=== PATIENT | male | born 1930 | race Caucasian/White ===

== ENCOUNTER 2016-06-10 09:34 | Inpatient (IN) | payer MEDICARE, BC ==
[2016-06-10] MEDS ORDERED: diphenhydrAMINE 50 MG/ML 1 ML VIAL IVP STA (10:51)
[2016-06-10] MEDS ORDERED: methylPREDNISolone SOD SUCCI 125 MG/2 ML VIAL IV STA (10:51)
[2016-06-10] MEDS ORDERED: FAMOTIDINE 20 MG/2 ML VIAL IV STA (10:51)
--- NOTE | 2016-06-10 11:20 | ED ---
General Adult HPI - General Source: patient, RN notes reviewed Mode of arrival: ambulatory Limitations: no limitations <Oc Galindo - Last Filed: 06/10/16 12:51> <Abdiel Glass - Last Filed: 06/10/16 12:56> - General Chief complaint: Skin/Abscess/Foreign Body Stated complaint: rash on head Time Seen by Provider: 06/10/16 10:10 - History of Present Illness Initial comments: Patient 85-year-old male who presents emergency room today with a chief complaint of a rash to his face 3 days. He does admit that it started 3 days on the right side. He states it is somewhat tender locally. States feels swollen to him. States rash has increased and is now going across to the other side over the last day. States that he did take any medication of Welchol that he began approximately 5 days ago. States unsure if it's related to this. Also admits to eating out 2 days ago having a salad. Patient states never had any food ALLERGIES in the past. Denies ever having reaction similar to this in the past. Denies any difficulty breathing or swallowing. States he has not taken any medications specifically for this. Patient denies any recent fever, chills, shortness of breath, chest pain, back pain, abdominal pain, nausea or vomiting, numbness or tingling, dysuria or hematuria, constipation or diarrhea, headaches or visual changes, or any other complaints. (Oc Galindo) - Related Data Home Medications Medication Instructions Recorded Confirmed Allopurinol [Zyloprim] 100 mg PO HS 09/21/14 06/10/16 Aspirin 81 mg PO HS 09/21/14 06/10/16 Atorvastatin Calcium [Lipitor] 10 mg PO HS 09/21/14 06/10/16 Levothyroxine Sodium [Synthroid] 175 mcg PO DAILY 09/21/14 06/10/16 Sodium Polystyrene Sulfon/Sorb 15 gm PO BID 09/21/14 06/10/16 [Kionex] Sotalol [Betapace] 80 mg PO BID 09/21/14 06/10/16 Valsartan [Diovan] 160 mg PO DAILY 09/21/14 06/10/16 Warfarin [Coumadin] 5 mg PO SUMOWEFR 06/10/16 06/10/16 Warfarin [Coumadin] 5 mg PO TUTHSA 06/10/16 06/10/16 Allergies Allergy/AdvReac Type Severity Reaction Status Date / Time adhesive Allergy Unknown Verified 06/10/16 10:16 amoxicillin trihydrate Allergy Unknown Verified 06/10/16 10:16 [From Augmentin] chlorpromazine HCl Allergy Unknown Verified 06/10/16 10:16 [From Thorazine] nitroglycerin Allergy Unknown Verified 06/10/16 10:16 potassium clavulanate Allergy Unknown Verified 06/10/16 10:16 [From Augmentin] Review of Systems ROS Other: All systems not noted in ROS Statement are negative. <Oc Galindo - Last Filed: 06/10/16 12:51> ROS Other: All systems not noted in ROS Statement are negative. <Abdiel Glass - Last Filed: 06/10/16 12:56> ROS Statement: Those systems with pertinent positive or pertinent negative responses have been documented in the HPI. Past Medical History Past Medical History: Atrial Fibrillation, Coronary Artery Disease (CAD), Hyperlipidemia, Hypertension, Myocardial Infarction ([place]), Osteoarthritis (OA), Renal Disease, Thyroid Disorder History of Any Multi-Drug Resistant Organisms: None Reported Past Surgical History: Coronary Bypass/CABG, Joint Replacement, Orthopedic Surgery, Pacemaker Past Psychological History: No Psychological Hx Reported Smoking Status: Former smoker Past Alcohol Use History: None Reported Past Drug Use History: None Reported <Oc Galindo - Last Filed: 06/10/16 12:51> General Exam Limitations: no limitations <Oc Galindo - Last Filed: 06/10/16 12:51> <Abdiel Glass - Last Filed: 06/10/16 12:56> - General Exam Comments Initial Comments: General: The patient is awake and alert, in no distress, and does not appear acutely ill. Eye: Pupils are equal, round and reactive to light, extra-ocular movements are intact. No nystagmus. There is normal conjunctiva bilaterally. No signs of icterus. Ears, nose, mouth and throat: There are moist mucous membranes and no oral lesions. Neck: The neck is supple, there is no tenderness or JVD. Cardiovascular: There is a regular rate and rhythm. No murmur, rub or gallop is appreciated. Respiratory: Lungs are clear to auscultation, respirations are non-labored, breath sounds are equal. No wheezes, stridor, rales, or rhonchi. Musculoskeletal: Normal ROM, no tenderness. Strength 5/5. Sensation intact. Pulses equal bilaterally 2+. Neurological: A&O x 3. CN II-XII intact, There are no obvious motor or sensory deficits. Coordination appears grossly intact. Speech is normal. Skin: She does have a red erythematous rash across both right and left sides of face. Swelling underneath the both right and left eye. Worsen the right than the left. Does have swelling to the right earlobe. No tenderness specifically on exam. Does have scaly type lesions seen to the right forehead and right cheek area. Rash does conor. Psychiatric: Cooperative, appropriate mood & affect, normal judgment. (Oc Galindo) Medical Decision Making - Lab Data Result diagrams: 06/10/16 11:20 06/10/16 11:20 <Oc Galindo - Last Filed: 06/10/16 12:51> - Lab Data Result diagrams: 06/10/16 11:20 06/10/16 11:20 <Abdiel Glass - Last Filed: 06/10/16 12:56> - Medical Decision Making Patient's labs been reviewed. Does show mild elevation of BUN/creatinine which are similar to previous findings. Patient resting comfortably in the stretcher. Patient has no improvement after site Medrol, Benadryl, Pepcid. Case discussed and seen by attending physician Dr. Glass who did discuss the case with admitting physician Dr. Sloan will admit the patient. Patient will be started on clindamycin cover for cellulitis along with valacyclovir to cover for possible herpes zoster. Patient aware the plan states understanding and is in agreement. (Oc Galindo) I saw this patient in conjunction with the physician fast food sales assistant. I performed independent history and physical exam. Agree with case management. (Abdiel Glass) - Lab Data Lab Results 06/10/16 06/10/16 06/10/16 Range/Units 11:20 11:20 11:20 WBC 7.5 (3.8-10.6) k/uL RBC 3.46 L (4.30-5.90) m/uL Hgb 10.9 L (13.0-17.5) gm/dL Hct 34.3 L (39.0-53.0) % MCV 99.0 (80.0-100.0) fL MCH 31.6 (25.0-35.0) pg MCHC 31.9 (31.0-37.0) g/dL RDW 15.4 (11.5-15.5) % Plt Count 133 L (150-450) k/uL Neutrophils % 84 % Lymphocytes % 8 % Monocytes % 5 % Eosinophils % 1 % Basophils % 0 % Neutrophils # 6.3 (1.3-7.7) k/uL Lymphocytes # 0.6 L (1.0-4.8) k/uL Monocytes # 0.4 (0-1.0) k/uL Eosinophils # 0.1 (0-0.7) k/uL Basophils # 0.0 (0-0.2) k/uL Macrocytosis Slight ESR 70 H (0-15) mm/hr PT (9.0-12.0) sec INR (<1.1) Sodium 144 (137-145) mmol/L Potassium 5.1 (3.5-5.1) mmol/L Chloride 105 (98-107) mmol/L Carbon Dioxide 27 (22-30) mmol/L Anion Gap 12 mmol/L BUN 42 H (9-20) mg/dL Creatinine 1.66 H (0.66-1.25) mg/dL Est GFR (MDRD) Af Amer 48 (>60 ml/min/1.73 sqM) Est GFR (MDRD) Non-Af 40 (>60 ml/min/1.73 sqM) Glucose 100 H (74-99) mg/dL Calcium 8.9 (8.4-10.2) mg/dL Total Bilirubin 0.9 (0.2-1.3) mg/dL AST 21 (17-59) U/L ALT 31 (21-72) U/L Alkaline Phosphatase 97 (38-126) U/L Total Protein 6.4 (6.3-8.2) g/dL Albumin 3.7 (3.5-5.0) g/dL 06/10/16 Range/Units 11:20 WBC (3.8-10.6) k/uL RBC (4.30-5.90) m/uL Hgb (13.0-17.5) gm/dL Hct (39.0-53.0) % MCV (80.0-100.0) fL MCH (25.0-35.0) pg MCHC (31.0-37.0) g/dL RDW (11.5-15.5) % Plt Count (150-450) k/uL Neutrophils % % Lymphocytes % % Monocytes % % Eosinophils % % Basophils % % Neutrophils # (1.3-7.7) k/uL Lymphocytes # (1.0-4.8) k/uL Monocytes # (0-1.0) k/uL Eosinophils # (0-0.7) k/uL Basophils # (0-0.2) k/uL Macrocytosis ESR (0-15) mm/hr PT 13.8 H (9.0-12.0) sec INR 1.4 (<1.1) Sodium (137-145) mmol/L Potassium (3.5-5.1) mmol/L Chloride (98-107) mmol/L Carbon Dioxide (22-30) mmol/L Anion Gap mmol/L BUN (9-20) mg/dL Creatinine (0.66-1.25) mg/dL Est GFR (MDRD) Af Amer (>60 ml/min/1.73 sqM) Est GFR (MDRD) Non-Af (>60 ml/min/1.73 sqM) Glucose (74-99) mg/dL Calcium (8.4-10.2) mg/dL Total Bilirubin (0.2-1.3) mg/dL AST (17-59) U/L ALT (21-72) U/L Alkaline Phosphatase (38-126) U/L Total Protein (6.3-8.2) g/dL Albumin (3.5-5.0) g/dL Disposition Time of Disposition: 12:52 <Oc Galindo - Last Filed: 06/10/16 12:51> <Abdiel Glass - Last Filed: 06/10/16 12:56> Clinical Impression: Herpes zoster Disposition: ADMITTED IP TO THIS HOSP Condition: Stable Referrals: Hayder Alfonso DO [Primary Care Provider] - 1-2 days
[2016-06-10 11:33] LABS: Basophils % (A) 0 %; CHCM 32.5; Eosinophils # (A) 0.1 k/uL (0-0.7); Eosinophils % (A) 1 %; HCT 34.3 % (39.0-53.0); HDW 2.62; HGB 10.9 gm/dL (13.0-17.5); Luc % (Auto) 1; Lymphocytes # (A) 0.6 k/uL (1.0-4.8); Lymphocytes % (A) 8 %; MCH 31.6 pg (25.0-35.0); MCHC 31.9 g/dL (31.0-37.0); Macrocytosis Slight; Mean Platelet Volume 8.3; Monocytes # (A) 0.4 k/uL (0-1.0); Monocytes % (A) 5 %; Neutrophils # (A) 6.3 k/uL (1.3-7.7); Neutrophils % (A) 84 %; RBC 3.46 m/uL (4.30-5.90); RDW 15.4 % (11.5-15.5); WBC 7.5 k/uL (3.8-10.6); WBC (Perox) 7.67
[2016-06-10 11:43] LABS: INR 1.4 (<1.1); Prothrombin Time 13.8 sec (9.0-12.0)
[2016-06-10 11:48] LABS: Calcium 8.9 mg/dL (8.4-10.2); Potassium 5.1 mmol/L (3.5-5.1); Total Bilirubin 0.9 mg/dL (0.2-1.3); Total Protein 6.4 g/dL (6.3-8.2)
[2016-06-10] MEDS ORDERED: SODIUM CHLORIDE 0.9% 1,000 ML IV ONE (12:53)
[2016-06-10] MEDS ORDERED: LORazepam 2 MG/ML SYRINGE IV PRN (12:53)
[2016-06-10] MEDS ORDERED: ONDANSETRON 4 MG/2 ML VIAL IVP PRN (12:53)
[2016-06-10] MEDS ORDERED: ACETAMINOPHEN TAB 325 MG TAB PO PRN (12:53)
[2016-06-10] MEDS ORDERED: HYDROcodone/APAP 5-325MG 1 EACH TAB PO PRN (12:53)
[2016-06-10] MEDS ORDERED: NALOXONE 0.4 MG/ML 1 ML VIAL IV PRN (12:53)
[2016-06-10] MEDS ORDERED: CLINDAMYCIN 300 MG in DEXTROSE 5% IN WATER 50 ML IVPB STA ×2 (12:55)
--- NOTE | 2016-06-10 15:16 | P.HPIM ---
History of Present Illness H&P Date: 06/10/16 Chief Complaint: Acute zoster of the right facial area, cellulitis of the face, Russ Pelaez 85-year-old male one of Dr. bay Jimenez patient with the medical problem known to have history of CAD, CK D, A. fib, hypertension, hyperlipidemia and hypothyroidism who is known to have gout and diabetes who apparently was [place] the country with his few days ago coming back he stayed in a hotel had lunch or dinner developed to have mild facial irritation and discomfort with low-grade temperature at the time. By the time he made it home he become with severe chills and worsening symptom with high fever his face developed to have significant swelling and later on developed to have more blister on it with severe pain and discomfort over the auricle in the ear area. Today symptom or much worse ended up coming to the emergency department at [facility] where was seen and evaluated. His white blood cell and platelet are slightly bit low with patient clinical presentation and palpitation over the auricle and ear canal area patient was diagnosed with Russ qureshi looks like had zoster and cellulitis of the facial area. Was started on Valtrex and antibiotics IV will be admitted to the hospital above problem. Review of Systems Constitutional: Reports chronic headaches, Reports chronic pain, Reports fatigue , Reports fever, Reports lethargy, Reports malaise, Reports weakness, Reports weight gain, Denies as per HPI, Denies anorexia, Denies chills, Denies daytime sleepiness, Denies night sweats, Denies poor appetite, Denies sweats, Denies weight loss Eyes: bilateral as per HPI, bilateral blurred vision Ears: right: ear discharge, earache, tinnitus Ears, nose, mouth and throat: Reports ant. neck pain, Reports headache, Reports nasal congestion, Reports odynophagia, Reports sinus pressure, Reports swelling in mouth, Reports swelling in throat, Reports sore throat, Denies as per HPI, Denies bleeding gums, Denies dental pain, Denies dysphagia, Denies epistaxis, Denies hoarseness, Denies mouth pain, Denies nasal discharge, Denies neck fullness/pressure, Denies neck lump, Denies nose pain, Denies post-nasal drip, Denies sinus pain, Denies vertigo, Denies voice changes Cardiovascular: Reports chest pain, Reports dyspnea on exertion, Reports edema, Reports high blood pressure, Reports orthopnea, Reports rapid heart beat, Reports shortness of breath, Denies as per HPI, Denies claudication, Denies decreased exercise tolerance, Denies irregular heart beat, Denies leg edema, Denies lightheadedness, Denies palpitations, Denies paroxysmal nocturnal dyspnea , Denies phlebitis, Denies syncope Respiratory: Reports congestion, Reports cough, Reports dyspnea, Reports pain on inspiration, Reports snoring, Denies as per HPI, Denies cough with sputum, Denies excessive sputum, Denies hemoptysis, Denies home oxygen, Denies pain, Denies pleurisy, Denies respiratory infections, Denies sleep apnea, Denies wheezing Gastrointestinal: Reports belching, Reports bloating, Reports change in bowel habits, Reports dyspepsia, Reports early satiety, Reports indigestion, Reports loss of appetite, Reports nausea, Denies as per HPI, Denies abdominal pain, Denies BRBPR, Denies coffee ground emesis, Denies constipation, Denies diarrhea , Denies excessive gas, Denies heartburn, Denies hematemesis, Denies hematochezia, Denies jaundice, Denies lactose intolerance, Denies melena, Denies vomiting Genitourinary: Reports nocturia, Reports polyuria, Denies as per HPI, Denies decreased libido, Denies difficulties fathering child, Denies discharge, Denies dysuria, Denies erectile dysfunction, Denies flank pain, Denies genital pain, Denies genital sores, Denies hematuria, Denies impotence, Denies incontinence, Denies kidney stones, Denies testicular lump, Denies testicular pain, Denies urinary frequency, Denies urinary hesitancy, Denies urinary retention Musculoskeletal: Reports gait dysfunction, Reports low back pain, Reports myalgias, Reports neck pain, Reports neck stiffness, Denies as per HPI, Denies arm numbness/tingling, Denies atrophy, Denies fractures, Denies frequent falls, Denies hot joints, Denies leg numbness/tingling, Denies limitation of motion, Denies loss of height, Denies morning stiffness, Denies muscle cramps, Denies muscle weakness, Denies prior amputations, Denies redness of joints, Denies shooting arm pain, Denies shooting leg pain Integumentary: Reports pruritus, Reports rash, Reports sores, Denies as per HPI , Denies acne, Denies boils, Denies brittle nails, Denies change in hair/nails, Denies color changes, Denies darkening of skin, Denies depigmentation, Denies dryness, Denies foot/leg ulcers, Denies growths, Denies hirsutism, Denies lesions, Denies onychomycosis, Denies striae, Denies unusual bruising, Denies wounds Neurological: Reports ataxia, Reports convulsions, Reports lack of coordination , Reports paresthesias, Reports weakness, Denies as per HPI, Denies aphasia, Denies balance difficulties, Denies burning pain, Denies change in mentation, Denies change in smell/taste, Denies change in speech, Denies confusion, Denies double vision, Denies gait dysfunction, Denies head injury, Denies headaches, Denies hearing difficulties, Denies loss of vision, Denies memory loss, Denies migraines, Denies motor disturbance, Denies numbness, Denies paralysis, Denies seizures, Denies sensory deficit, Denies spasticity, Denies syncope, Denies tic , Denies tingling, Denies transient paralysis, Denies tremors, Denies vertigo, Denies visual changes Psychiatric: Reports anhedonia, Reports depression, Reports sadness/tearfulness , Denies as per HPI, Denies anxiety, Denies anxiety attacks, Denies change in appetite, Denies change in libido, Denies change in sleep habits, Denies confusion, Denies difficulty concentrating, Denies disorientation, Denies hallucinations, Denies hopelessness, Denies hypersomnia, Denies insomnia, Denies irritability, Denies memory loss, Denies mood swings, Denies paranoia, Denies sleep disturbances, Denies suicidal ideation Endocrine: Reports cold intolerance, Reports excessive thirst, Reports fatigue, Denies as per HPI, Denies deepening of the voice, Denies excessive sweating, Denies flushing, Denies heat intolerance, Denies high blood sugars, Denies increase in ring/shoe/hat size, Denies low blood sugars, Denies nocturia, Denies palpitations, Denies polydipsia, Denies polyphagia, Denies polyuria, Denies proptosis, Denies recent glucocorticoid use, Denies thyroid mass, Denies weight change Hematologic/Lymphatic: Reports easy bruising, Denies as per HPI, Denies easy bleeding, Denies lymphadenopathy, Denies lymphedema, Denies thrombophilia Allergic/Immunologic: Denies as per HPI, Denies allergic rhinitis, Denies anaphylaxis, Denies angioedema, Denies gluten intolerance, Denies persistent infections, Denies seasonal allergies, Denies urticaria, Denies wheezing Past Medical History Past Medical History: Atrial Fibrillation, Coronary Artery Disease (CAD), Cancer , Deep Vein Thrombosis (DVT), Hyperlipidemia, Hypertension, Myocardial Infarction ([place]), Osteoarthritis (OA), Pulmonary Embolus (PE), Renal Disease, Sleep Apnea/CPAP/BIPAP, Thyroid Disorder Additional Past Medical History / Comment(s): Recent L foot toes injured/bruised , DVT R arm with pulmonary embolism, poor circulation, LEONCIO does not always use CPAP, skin cancer with removal and pt thinks R arm was melanoma, hypothyroid, [place] in 1996. Last Myocardial Infarction Date:: 1996 History of Any Multi-Drug Resistant Organisms: None Reported Past Surgical History: Coronary Bypass/CABG, Heart Catheterization, Hernia Repair, Joint Replacement, Orthopedic Surgery, Pacemaker Additional Past Surgical History / Comment(s): 1996 CABG-5 vessel, L/R total hip arthroplasties, R knee total arthroplasty with revision, skin cancer removals, colonoscopy, pacemaker 2012 while in [place], bilateral cataract removals, R writst with plates and screws, umbilical hernia repair. Past Anesthesia/Blood Transfusion Reactions: No Reported Reaction Type of Cardiac Device: Permanent Pacemaker Device Placement Date:: 2012 Past Psychological History: No Psychological Hx Reported Additional Psychological History / Comment(s): Pt resides with his spouse. He uses a cane or walker to ambulate. He drives. Smoking Status: Former smoker Past Alcohol Use History: Rare Additional Past Alcohol Use History / Comment(s): Pt started smoking as a teen and quit in 1967. Past Drug Use History: None Reported - Past Family History Father Family Medical History: Cancer Additional Family Medical History / Comment(s): Father of colon cancer. Mother Family Medical History: No Reported History Additional Family Medical History / Comment(s): Mother lived to be 76yrs old. Medications and Allergies Home Medications Medication Instructions Recorded Confirmed Type Allopurinol [Zyloprim] 100 mg PO HS 09/21/14 06/10/16 History Aspirin 81 mg PO HS 09/21/14 06/10/16 History Atorvastatin Calcium [Lipitor] 10 mg PO HS 09/21/14 06/10/16 History Levothyroxine Sodium [Synthroid] 175 mcg PO DAILY 09/21/14 06/10/16 History Sodium Polystyrene Sulfon/Sorb 15 gm PO BID 09/21/14 06/10/16 History [Kionex] Sotalol [Betapace] 80 mg PO BID 09/21/14 06/10/16 History Valsartan [Diovan] 160 mg PO DAILY 09/21/14 06/10/16 History Warfarin [Coumadin] 5 mg PO SUMOWEFR 06/10/16 06/10/16 History Warfarin [Coumadin] 5 mg PO TUTHSA 06/10/16 06/10/16 History Allergies Allergy/AdvReac Type Severity Reaction Status Date / Time adhesive Allergy Unknown Verified 06/10/16 10:16 amoxicillin trihydrate Allergy Unknown Verified 06/10/16 10:16 [From Augmentin] chlorpromazine HCl Allergy Unknown Verified 06/10/16 10:16 [From Thorazine] nitroglycerin Allergy Unknown Verified 06/10/16 10:16 potassium clavulanate Allergy Unknown Verified 06/10/16 10:16 [From Augmentin] Physical Exam Vitals: Vital Signs Temp Pulse Resp BP Pulse Ox 06/10/16 13:26 97.4 F L 120 H 20 148/75 95 Intake and Output 06/10/16 06/10/16 06/10/16 06:59 14:59 22:59 Intake Total 10 Balance 10 Intake: Amount of Fluid Infused ( 10 ml) - Constitutional General appearance: no average body habitus, cooperative, no disheveled, no mild distress, no morbidly obese, no acute distress, obese, no severe distress, no thin - EENT Significant blister spreading from the back of his head all the way to the upper part of his right eyelid involving the auricle in the ear canal as well with swelling and redness around the blister side with background of psoriasis as well on the hairline area. Looks like shingle with cellulitis in the background of psoriasis. Eyes: no abnormal pupil, anicteric sclerae, no disc margins sharp, no edentulous , no EOMI, no PERRLA, no fundus normal, no photophobia, no dentition normal, no poor dentition, no ptosis, scleral icterus, no normal appearance ENT: hard of hearing, no hearing grossly normal, no NA/AT, no normal oropharynx , no other, pharyngeal erythema, no thrush, no tonsillar exudates, tonsillar swelling Ears: bilateral: normal - Neck Neck: no lymphadenopathy, normal ROM, no other, no rigidity, no stridor, no thyromegaly Carotids: bilateral: upstroke normal Thyroid: bilateral: normal size - Respiratory Respiratory: bilateral: CTA, diminished, dullness - Cardiovascular Rhythm: irregularly irregular Heart sounds: normal: S1, S2 Abnormal Heart Sounds: systolic murmur, S3 Gallop - Gastrointestinal General gastrointestinal: no absent bowel sounds, no decreased bowel sounds, distended, no hepatomegaly, no hyperactive bowel sounds, normal bowel sounds, organomegaly, no rigid, no scaphoid, soft, no splenomegaly, no tenderness, no umbilical hernia, no ventral hernia - Integumentary Integumentary: no calor, no cellulitis, no cyanotic, no decreased turgor, no flushed, no jaundiced, normal, no normal turgor, pale, rash, no ulcer - Neurologic Neurologic: CNII-XII intact - Musculoskeletal Musculoskeletal: gait normal, generalized weakness, strength equal bilaterally, no right sided weakness, no left sided weakness - Psychiatric Psychiatric: A&O x's 3, appropriate affect Results CBC & Chem 7: 06/10/16 11:20 06/10/16 11:20 Thrombosis Risk Factor Assmnt - DVT/VTE Prophylaxis DVT/VTE Prophylaxis: Pharmacologic Prophylaxis ordered, Mechanical Prophylaxis ordered - Choose All That Apply Any of the Below Risk Factors Present?: Yes Each Factor Represents 1 point: Obesity (BMI >25) Other Risk Factors: Yes Each Risk Factor Represents 3 Points: Age 75 years or older, History of DVT/PE Other congenital or acquired thrombophilia - If yes, enter type in comment: No Thrombosis Risk Factor Assessment Total Risk Factor Score: 7 Thrombosis Risk Factor Assessment Level: High Risk Assessment and Plan Plan: 1 acute Russ Pelaez syndrome: Patient had shingle in the right facial area involving the auricle the ear canal as well and slightly but worsening last 24 hours will be admitted to the hospital will be treated with Valcyclovir and pain management. 2 acute facial cellulitis: With his current ALLERGY patient was started on clindamycin initially can be switched to doxycycline her ROM second or third day and prepare for home on doxycycline for total of 2 weeks. 3 zoster involving the upper branch and part of the middle of the trigeminal nerve on the right side will be on antiviral medication for the next 7 days might use small dose of steroid as well and possibly gabapentin. 4 Chronic kidney disease: With stage III CK-MB has been seen nephrology regular basis continue to watch his BUN/creatinine daily. 5 A. fib with pulse rates under control patient is on Betapace along with warfarin PT/INR be done daily. 6 hypothyroidism: Has been on levothyroxine 125 g daily continue medication. 7 hyperlipidemia: On Lipitor 10 mg daily. 8 hypertension: Well controlled on Diovan 160 mg a day. 9 gout with no flareup or recurrent symptoms patient has been on Zyloprim 100 mg daily. 10 Anticoagulation: Patient is on warfarin PT/INR be done daily. 11 GI prophylaxis: Patient will be on Pepcid 20 mg daily. CODE STATUS: Full code. Expectation from this admission: Patient be in the hospital for more than 2 nights.
[2016-06-10] MEDS ORDERED: valACYclovir 500 MG TAB PO SCH (16:00)
[2016-06-10] MEDS: valACYclovir HCL 1,000 MG TABLET PO SCH ×2 (16:04→21:03)
[2016-06-10] MEDS: HEPARIN SODIUM,PORCINE 5,000 UNIT/ML 1 ML VIAL SQ SCH (20:02)
[2016-06-10] MEDS: CLINDAMYCIN 300 MG in DEXTROSE 5% IN WATER 50 ML IVPB SCH ×2 (20:25)
[2016-06-11] MEDS: CLINDAMYCIN 300 MG in DEXTROSE 5% IN WATER 50 ML IVPB SCH ×6 (04:53→20:07)
[2016-06-11] MEDS: valACYclovir HCL 1,000 MG TABLET PO SCH ×3 (08:03→21:22)
[2016-06-11] MEDS: HEPARIN SODIUM,PORCINE 5,000 UNIT/ML 1 ML VIAL SQ SCH ×2 (08:03→20:07)
[2016-06-11 08:54] LABS: Basophils % (A) 0 %; CH 32.1; CHCM 31.6; Eosinophils % (A) 0 %; HCT 32.6 % (39.0-53.0); HDW 2.58; HGB 9.9 gm/dL (13.0-17.5); Hypochromasia Slight; Luc # (Auto) 0.08; Luc % (Auto) 1; Lymphocytes # (A) 0.7 k/uL (1.0-4.8); Lymphocytes % (A) 11 %; MCH 31.1 pg (25.0-35.0); MCHC 30.5 g/dL (31.0-37.0); MCV 102.1 fL (80.0-100.0); Macrocytosis Slight; Mean Platelet Volume 8.6; Monocytes # (A) 0.4 k/uL (0-1.0); Monocytes % (A) 6 %; Neutrophils % (A) 81 %; RDW 15.2 % (11.5-15.5); WBC 6.2 k/uL (3.8-10.6); WBC (Perox) 6.34
[2016-06-11 09:02] LABS: Calcium 8.7 mg/dL (8.4-10.2); Potassium 4.4 mmol/L (3.5-5.1); Total Bilirubin 0.3 mg/dL (0.2-1.3); Total Protein 6.2 g/dL (6.3-8.2)
[2016-06-11] MEDS ORDERED: WARFARIN 5 MG TAB PO SCH ×2 (11:15→18:00)
[2016-06-11] MEDS: MAGNESIUM HYDROXIDE 2,400 MG/10 ML CUP PO PRN ×2 (15:32→20:21)
[2016-06-11] MEDS: SOTALOL 80 MG TAB PO SCH (20:06)
--- NOTE | 2016-06-11 20:30 | PN ---
DATE OF SERVICE: 06/11/2016 The patient is at the bedside comfortable, with at the chair next to him saying that he has improved significantly since yesterday. The patient experienced some blurry vision in the morning but resolved and he is back to normal vision condition. The patient denies any chest pain, shortness of breath, nausea, vomiting, abdominal pain, dizziness. No ( ) or blurry vision. On physical examination: VITAL SIGNS: Reviewed and stable. LUNGS: Clear to auscultation bilaterally. HEART: S1 and S2. SKIN: Facial skin ( ), generalized erythema. No open blisters noted. 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 ABDOMEN: Soft, no tenderness. Positive bowel sounds in all four quadrants. PSYCH: Alert, oriented x3. Intact mood and affect. Imaging and labs reviewed this morning and stable. ASSESSMENT AND PLAN: 1. Facial cellulitis, seems to be improving. Continue with IV doxycycline. Discussed with Dr. Sr, the management today, he will be in later to reevaluate the patient. 2. Questionable zoster on the face. Continue Valtrex at this point and follow up with Dr. Sr recommendations and ( ) and consider consultation based on his evaluation. 3. Transient blurry vision, patient states that once he puts his glasses on he was able to see normal. Not sure about severity of transient blurry vision. Continue monitoring closely. Further workup if patient experiences worsening in vision. 4. Hypertension, better controlled. 5. Anemia, stable. 6. Chronic kidney disease, rule out ( ) and checking kidney function on a daily basis while in the hospital. 7. Discharge planning based on clinical progress. Plan discussed with the patient and his who both agree to the above.
[2016-06-11] MEDS ORDERED: ALLOPURINOL 100 MG TAB PO SCH (21:00)
[2016-06-11] MEDS ORDERED: ASPIRIN 81 MG CHEW PO SCH (21:00)
[2016-06-11] MEDS ORDERED: ATORVASTATIN 10 MG TAB PO SCH (21:00)
--- NOTE | 2016-06-11 22:11 | P.CONS ---
History of Present Illness - Reason for Consult Consult date: 06/11/16 - Chief Complaint pain swellingof face - History of Present Illness Very pleasant 85-year-old male presents to hospital with relatively sudden onset of significant pain and swelling to his face. The patient relates he and the went to the [facility] where they did some shopping. This was not unusual for them. Only thing new that he can recall is he's been moving some logs for the log pile into the house, and they are quite old. He distantly denies any pulmonary symptoms. He over does complain of chronic sinus drainage. He often has a bit of a runny nose and often sneezes 7 times in a row. This is without significant change as of now. He does continue to have some drainage. He relates before admission history to feel poorly. He had a sudden onset of the fever and chill likely even had a rigor. He then settled down a bit and went to sleep. The following day he again felt poorly and noticed increasing swelling to the right side of his face above his eye that then tracked above the left eye. He notices his glasses were becoming tight because his face with swelling. As he continued to have fever and felt poorly and became weak he was brought to Hospital for further intervention. With evidence of sepsis the infectious diseases consultation was requested. Review of Systems as noted complains of fever with chill Experienced the onset of significant weakness generalized in nature HEENT:Denies headache or acute visual change. Denies sinus or mouth discomforts. Denies neck stiffness or pain. Denies significant oral cavity pain. Denies difficulty on swallowing. Lungs: Denies significant shortness of breath, cough, sputum production, or hemoptysis. Cardiovascular: Denies significant shortness of breath, chest pain, chest wall pain, orthopnea, dyspnea on exertion, syncope Gastrointestinal:Denies nausea, vomiting, diarrhea, constipation, hematemesis, melena, hematochezia. No no significant change of bowel habit noticed. Musculoskeletal: denies significant myalgias or arthralgias. No new joint swelling. Denies new back pain. Skin: as per the HPI Neuro: Denies headache or visual change. Denies any new onset weakness or difficulty with ambulation. Denies falls or seizures. Psychiatric:Denies anxiety or depression. Endocrine: Denies significant fatigue, denies significant weight loss or weight gain. Past Medical History Past Medical History: Atrial Fibrillation, Coronary Artery Disease (CAD), Cancer , Deep Vein Thrombosis (DVT), Hyperlipidemia, Hypertension, Myocardial Infarction ([place]), Osteoarthritis (OA), Pulmonary Embolus (PE), Renal Disease, Sleep Apnea/CPAP/BIPAP, Thyroid Disorder Additional Past Medical History / Comment(s): Recent L foot toes injured/bruised , DVT R arm with pulmonary embolism, poor circulation, LEONCIO does not always use CPAP, skin cancer with removal and pt thinks R arm was melanoma, hypothyroid, [place] in 1996. Last Myocardial Infarction Date:: 1996 History of Any Multi-Drug Resistant Organisms: None Reported Past Surgical History: Coronary Bypass/CABG, Heart Catheterization, Hernia Repair, Joint Replacement, Orthopedic Surgery, Pacemaker Additional Past Surgical History / Comment(s): 1996 CABG-5 vessel, L/R total hip arthroplasties, R knee total arthroplasty with revision, skin cancer removals, colonoscopy, pacemaker 2012 while in [place], bilateral cataract removals, R writst with plates and screws, umbilical hernia repair. Past Anesthesia/Blood Transfusion Reactions: No Reported Reaction Type of Cardiac Device: Permanent Pacemaker Device Placement Date:: 2012 Past Psychological History: No Psychological Hx Reported Additional Psychological History / Comment(s): Pt resides with his spouse. He uses a cane or walker to ambulate. 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 Has traveled internationally. Including [place], [place], the [place], [place]. Has not been to [place]. Has not been to [place]. Not a current smoker. No significant alcohol use or recreational drug use. No animals in the home at this time Smoking Status: Former smoker Past Alcohol Use History: Rare Additional Past Alcohol Use History / Comment(s): Pt started smoking as a teen and quit in 1967. Past Drug Use History: None Reported - Past Family History Father Family Medical History: Cancer Additional Family Medical History / Comment(s): Father of colon cancer. Mother Family Medical History: No Reported History Additional Family Medical History / Comment(s): Mother lived to be 76yrs old. Medications and Allergies Home Medications and Allergies Comment(s): Current Medications Acetaminophen (Tylenol Tab) 650 mg PO Q6HR PRN PRN Reason: Mild Pain or Fever > 100.5 Acetaminophen/Hydrocodone Bitart (Limon 5-325) 1 each PO Q4HR PRN PRN Reason: Moderate Pain Allopurinol (Zyloprim) 100 mg PO [facility] Last Admin: 06/11/16 20:06 Dose: 100 mg Aspirin (Aspirin) 81 mg PO [facility] Last Admin: 06/11/16 20:06 Dose: 81 mg Atorvastatin Calcium (Lipitor) 10 mg PO HS [facility] Last Admin: 06/11/16 20:06 Dose: 10 mg Heparin Sodium (Porcine) (Heparin) 5,000 unit SQ Q12HR [facility] Last Admin: 06/11/16 20:07 Dose: 5,000 unit Clindamycin Phosphate 300 mg/ (Dextrose/Water) 52 mls @ 100 mls/hr IVPB Q8H [facility] Last Admin: 06/11/16 20:07 Dose: 100 mls/hr Levothyroxine Sodium (Synthroid) 100 mcg PO 0630 [facility] Levothyroxine Sodium (Synthroid) 75 mcg PO DAILY@0630 [facility] Lorazepam (Ativan) 0.5 mg IV Q6HR PRN PRN Reason: Anxiety Magnesium Hydroxide (Milk Of Magnesia) 2,400 mg PO BID PRN PRN Reason: Constipation Last Admin: 06/11/16 20:21 Dose: 2,400 mg Naloxone HCl (Narcan) 0.2 mg IV Q2M PRN PRN Reason: Opioid Reversal Ondansetron HCl (Zofran) 4 mg IVP Q8HR PRN PRN Reason: Nausea And Vomiting Sotalol HCl (Betapace) 80 mg PO BID [facility] Last Admin: 06/11/16 20:06 Dose: 80 mg Valacyclovir HCl (Valtrex) 1,000 mg PO TID [facility] Last Admin: 06/11/16 21:22 Dose: 1,000 mg Valsartan (Diovan) 160 mg PO DAILY [facility] Warfarin Sodium (Coumadin) 7.5 mg PO SuMoWeFr [facility] Warfarin Sodium (Coumadin) 5 mg PO TUTHSA [facility] Last Admin: 06/11/16 18:03 Dose: 5 mg Home Medications Medication Instructions Recorded Confirmed Type Allopurinol [Zyloprim] 100 mg PO HS 09/21/14 06/10/16 History Aspirin 81 mg PO HS 09/21/14 06/10/16 History Atorvastatin Calcium [Lipitor] 10 mg PO HS 09/21/14 06/10/16 History Levothyroxine Sodium [Synthroid] 175 mcg PO DAILY 09/21/14 06/10/16 History Sodium Polystyrene Sulfon/Sorb 15 gm PO BID 09/21/14 06/10/16 History [Kionex] Sotalol [Betapace] 80 mg PO BID 09/21/14 06/10/16 History Valsartan [Diovan] 160 mg PO DAILY 09/21/14 06/10/16 History Warfarin [Coumadin] 5 mg PO TUTHSA 06/10/16 06/10/16 History Warfarin [Coumadin] 7.5 mg PO SUMOWEFR 06/10/16 06/11/16 History Allergies Allergy/AdvReac Type Severity Reaction Status Date / Time adhesive Allergy Unknown Verified 06/10/16 10:16 amoxicillin trihydrate Allergy Unknown Verified 06/10/16 10:16 [From Augmentin] chlorpromazine HCl Allergy Unknown Verified 06/10/16 10:16 [From Thorazine] nitroglycerin Allergy Unknown Verified 06/10/16 10:16 potassium clavulanate Allergy Unknown Verified 06/10/16 10:16 [From Augmentin] Physical Exam Vitals: Vital Signs Temp Pulse Resp BP Pulse Ox 06/11/16 19:47 97.6 F 83 136/75 06/11/16 15:00 97.0 F L 105 H 18 128/77 96 06/11/16 08:00 16 06/11/16 07:00 96.9 F L 108 H 16 138/86 92 L 06/10/16 23:00 98.7 F 97 16 130/67 97 Intake and Output 06/11/16 06/11/16 06/11/16 06:59 14:59 22:59 Intake Total 320 Balance 320 Intake: Intake, IV Titration 320 Amount Clindamycin 300 mg In 100 Dextrose 5% in Water 50 ml @ 100 mls/hr IVPB Q8H [facility] Rx#:[id number] Sodium Chloride 0.9% 1, 220 000 ml @ 20 mls/hr IV . Q24H [facility] Rx#:[id number] Other: Voiding Method Toilet Toilet # Voids 1 3 pleasant 85-year-old male who is not in any acute distrhis time. HEENT: Anicteric conjunctiva are pink and moist nasal mucosa grossly intact without significant lesions, there is no thrush. Neck: The neck is supple without significant lymphadenopathy or thyromegaly. Lungs: Good bilateral air entry without significant crackles or wheezing. There is no significant bronchial sounds. There is no egophony or dullness. Heart: irregular, audible S1-S2, no S3 no S4. There is no significant click or rub, PMI was nondisplaced.2/6 systolic murmur is noted without radiation. Abdomen: obese,Positive bowel sounds soft and nontender without palpable masses or organomegaly. There was no guarding or rebound. Extremities: The upper extremities have excellent pulses they are symmetric, no significant petechiae or telangiectasia. No splinter hemorrhages were noted. The lower extremities are free from significant edema. The peripheral pulses were 2+ and symmetric. Neuro: Awake alert oriented to person place and time. There are no acute new gross focal sensory motor deficits. skin:The patient's right periorbital area has evidence of patchy erythema that is slightly tender. There is definitely swelling in this region. It does track inferiorly near the ear. However no lesions within the ear or the external auditory canal. Of note his hearing is completely intact into the right ear. And upon head motion has no dizziness. The patient does have some mild swelling to the left periorbital area. He related that he may have had some lymphadenopathy that is not palpable at this point in time preauricular, posterior auricular or anterior cervical chain at this time. No other abnormal lymph nodes are noted. Results CBC & Chem 7: 06/11/16 07:51 06/11/16 07:51 Labs: Abnormal Lab Results - Last 24 Hours (Table) 06/11/16 06/11/16 Range/Units 07:51 07:51 RBC 3.20 L (4.30-5.90) m/uL Hgb 9.9 L (13.0-17.5) gm/dL Hct 32.6 L (39.0-53.0) % MCV 102.1 H (80.0-100.0) fL MCHC 30.5 L (31.0-37.0) g/dL Plt Count 125 L (150-450) k/uL Lymphocytes # 0.7 L (1.0-4.8) k/uL Chloride 109 H (98-107) mmol/L Carbon Dioxide 19 L (22-30) mmol/L BUN 45 H (9-20) mg/dL Creatinine 1.71 H (0.66-1.25) mg/dL Glucose 145 H (74-99) mg/dL Total Protein 6.2 L (6.3-8.2) g/dL Albumin 3.4 L (3.5-5.0) g/dL Laboratory Results WBC 6.2 k/uL (3.8-10.6) 06/11/16 07:51 RBC 3.20 m/uL (4.30-5.90) L 06/11/16 07:51 Hgb 9.9 gm/dL (13.0-17.5) L 06/11/16 07:51 Hct 32.6 % (39.0-53.0) L 06/11/16 07:51 MCV 102.1 fL (80.0-100.0) H 06/11/16 07:51 MCH 31.1 pg (25.0-35.0) 06/11/16 07:51 MCHC 30.5 g/dL (31.0-37.0) L 06/11/16 07:51 RDW 15.2 % (11.5-15.5) 06/11/16 07:51 Plt Count 125 k/uL (150-450) L 06/11/16 07:51 Neutrophils % 81 % 06/11/16 07:51 Lymphocytes % 11 % 06/11/16 07:51 Monocytes % 6 % 06/11/16 07:51 Eosinophils % 0 % 06/11/16 07:51 Basophils % 0 % 06/11/16 07:51 Neutrophils # 5.0 k/uL (1.3-7.7) 06/11/16 07:51 Lymphocytes # 0.7 k/uL (1.0-4.8) L 06/11/16 07:51 Monocytes # 0.4 k/uL (0-1.0) 06/11/16 07:51 Eosinophils # 0.0 k/uL (0-0.7) 06/11/16 07:51 Basophils # 0.0 k/uL (0-0.2) 06/11/16 07:51 Hypochromasia Slight 06/11/16 07:51 Macrocytosis Slight 06/11/16 07:51 ESR 70 mm/hr (0-15) H 06/10/16 11:20 PT 13.8 sec (9.0-12.0) H 06/10/16 11:20 INR 1.4 (<1.1) 06/10/16 11:20 Sodium 143 mmol/L (137-145) 06/11/16 07:51 Potassium 4.4 mmol/L (3.5-5.1) 06/11/16 07:51 Chloride 109 mmol/L (98-107) H 06/11/16 07:51 Carbon Dioxide 19 mmol/L (22-30) L 06/11/16 07:51 Anion Gap 15 mmol/L 06/11/16 07:51 BUN 45 mg/dL (9-20) H 06/11/16 07:51 Creatinine 1.71 mg/dL (0.66-1.25) H 06/11/16 07:51 Est GFR (MDRD) Af Amer 46 (>60 ml/min/1.73 sqM) 06/11/16 07:51 Est GFR (MDRD) Non-Af 38 (>60 ml/min/1.73 sqM) 06/11/16 07:51 Glucose 145 mg/dL (74-99) H 06/11/16 07:51 Calcium 8.7 mg/dL (8.4-10.2) 06/11/16 07:51 Total Bilirubin 0.3 mg/dL (0.2-1.3) 06/11/16 07:51 AST 20 U/L (17-59) 06/11/16 07:51 ALT 32 U/L (21-72) 06/11/16 07:51 Alkaline Phosphatase 84 U/L (38-126) 06/11/16 07:51 Total Protein 6.2 g/dL (6.3-8.2) L 06/11/16 07:51 Albumin 3.4 g/dL (3.5-5.0) L 06/11/16 07:51 Assessment and Plan (1) Preseptal cellulitis of right eye Narrative/Plan: 85-year-old male presents to the hospital with a somewhat sudden onset of fever chill and rigor. Associated with significant pain and swelling especially about his right eye. He's had no difficulty with any vesicles or blisters. The area is somewhat tender. He's noticed there is been more swelling in this region making his glasses tight when they're on his face. Since coming to Hospital his fever chill and rigor have resolved. He feels considerably better. Patient has had an adequate response to antibiotic therapy with clindamycin. He has a known ALLERGY to Augmentin which causes a significant skin eruption just a few years ago. At this time the patient has preseptal cellulitis and a computed tomography scan is requested given his history of some chronic sinus condition. If there is no significant abnormalities to his sinuses and a completion course of oral antibiotic therapy with clindamycin can be utilized with careful attention to any development of diarrhea. At this point in time it is not likely that this was varicella-zoster. Pain is considerably improved as is swelling. Fever chills and rigors have resolved. Status: Acute (2) Fever Status: Acute
[2016-06-12] MEDS: CLINDAMYCIN 300 MG in DEXTROSE 5% IN WATER 50 ML IVPB SCH ×2 (05:10)
[2016-06-12] MEDS ORDERED: LEVOTHYROXINE 75 MCG TAB PO SCH (06:30)
[2016-06-12] MEDS ORDERED: LEVOTHYROXINE 100 MCG TAB PO SCH (06:30)
[2016-06-12 08:00] VITALS: BP 121/67; PULSE 60; RESP 18; TEMP 96.6
[2016-06-12] MEDS: HEPARIN SODIUM,PORCINE 5,000 UNIT/ML 1 ML VIAL SQ SCH (08:01)
[2016-06-12] MEDS: SOTALOL 80 MG TAB PO SCH (08:02)
[2016-06-12] MEDS: valACYclovir HCL 1,000 MG TABLET PO SCH (08:02)
[2016-06-12 08:19] LABS: Basophils % (A) 0 %; CH 31.9; CHCM 31.3; Eosinophils # (A) 0.1 k/uL (0-0.7); Eosinophils % (A) 2 %; HCT 34.6 % (39.0-53.0); HDW 2.67; HGB 10.5 gm/dL (13.0-17.5); Hypochromasia Slight; Luc % (Auto) 2; Lymphocytes # (A) 1.1 k/uL (1.0-4.8); Lymphocytes % (A) 21 %; MCH 31.2 pg (25.0-35.0); MCHC 30.4 g/dL (31.0-37.0); MCV 102.6 fL (80.0-100.0); Macrocytosis Slight; Mean Platelet Volume 8.6; Monocytes # (A) 0.4 k/uL (0-1.0); Monocytes % (A) 7 %; Neutrophils # (A) 3.6 k/uL (1.3-7.7); Neutrophils % (A) 68 %; RBC 3.38 m/uL (4.30-5.90); RDW 15.4 % (11.5-15.5); WBC 5.3 k/uL (3.8-10.6); WBC (Perox) 5.76
[2016-06-12 08:23] LABS: INR 1.7 (<1.1)
[2016-06-12 08:32] LABS: Potassium 5.7 mmol/L (3.5-5.1); Total Bilirubin 0.3 mg/dL (0.2-1.3); Total Protein 6.2 g/dL (6.3-8.2)
[2016-06-12] MEDS ORDERED: SODIUM POLYSTYRENE SULFONATE 15 GM/60 ML BOTTLE PO STA (08:59)
[2016-06-12] MEDS ORDERED: VALSARTAN 160 MG TAB PO SCH (09:00)
[2016-06-12] MEDS ORDERED: WARFARIN 5 MG TAB PO SCH (11:01)
--- NOTE | 2016-06-12 11:19 | CT ---
EXAMINATION TYPE: CT sinus wo con DATE OF EXAM: 06/12/2016 10:11 AM COMPARISON: Prior exam August CT facial bones HISTORY: atypical zoster vs cellulitis CT DLP: 519.40 mGycm Automated exposure control for dose reduction was used. FINDINGS: Helical imaging through the paranasal sinuses and facial bones Large amount of inflammatory change present within the maxillary sinus on the left. Soft tissue obstr ucts the ostiomeatal unit on the left, right ostiomeatal unit is patent. No other significant interva l changes. Intraorbital contents are within normal limits. No intraorbital mass. Orbits are intact. IMPRESSION: LEFT MAXILLARY SINUS DISEASE.
[2016-06-12] MEDS ORDERED: WARFARIN 7.5 MG TAB PO SCH (18:00)
--- NOTE | 2016-06-13 13:02 | DS ---
DATE OF ADMISSION: 06/10/2016 DATE OF DISCHARGE: 06/12/2016 ADMITTING DIAGNOSES: 1. Cellulitis of the face. 2. Questionable ( ) of infection. 3. Hypertension. 4. Blurry vision. DISCHARGE DIAGNOSES: 1. Cellulitis of the face. 2. Sinusitis. 3. Dizziness, likely secondary to be above. PROCEDURES AND IMAGING: CT scan of the head, which revealed sinus infection. Normal otherwise CT of the brain. HOSPITAL COURSE: This is an 85-year-old male who presented to the hospital with facial redness. The patient was started on IV clindamycin, improved dramatically over the next 24 hours and was started also on acyclovir for treatment of possible zoster infection. Infectious disease was consulted. It was felt that the patient can be discharged on oral clindamycin for management of his facial cellulitis and for his sinus infection. The patient aware with the side effects of oral clindamycin and he agreed to follow up with his primary care physician between Monday and Monday, take Flonase twice daily, take Loratadine once daily and continue clindamycin for 7 more days for a total of 10 days of treatment. The patient understands that chronic sinusitis is another issue that he needs to follow up closely with his primary care physician in that regard and follow up with Dr. Sr from [place] for his recommendation. Patient and agreed to the current treatment plan and was discharged in stable condition.
== END 2016-06-12 13:55 | disposition home or self-care (01) | DRG 603 ==
LOC: EC 09:34 → 4MS4W 12:56
PROVIDERS: ADMIT Internal Medicine Geriatric Medicine; ATTEND Internal Medicine Geriatric Medicine
DX: L03.213 Periorbital cellulitis (principal); B02.21 Postherpetic geniculate ganglionitis; E11.22 Type 2 diabetes mellitus with diabetic chronic kidney disease; I48.91 Unspecified atrial fibrillation; N18.3 Chronic kidney disease, stage 3 (moderate); I12.9 Hypertensive chronic kidney disease with stage 1 through stage 4 chronic kidney disease, or unspecified chronic kidney disease; G47.33 Obstructive sleep apnea (adult) (pediatric); I25.10 Atherosclerotic heart disease of native coronary artery without angina pectoris; E78.5 Hyperlipidemia, unspecified; E03.9 Hypothyroidism, unspecified; M10.9 Gout, unspecified; I25.2 Old myocardial infarction; D64.9 Anemia, unspecified; J32.9 Chronic sinusitis, unspecified; Z88.0 Allergy status to penicillin; Z85.828 Personal history of other malignant neoplasm of skin; Z86.718 Personal history of other venous thrombosis and embolism; Z86.711 Personal history of pulmonary embolism; Z95.1 Presence of aortocoronary bypass graft; Z95.0 Presence of cardiac pacemaker; Z96.60 Presence of unspecified orthopedic joint implant; Z87.891 Personal history of nicotine dependence; Z98.42 Cataract extraction status, left eye; Z98.41 Cataract extraction status, right eye; Z79.01 Long term (current) use of anticoagulants; Z79.82 Long term (current) use of aspirin; Z79.899 Other long term (current) drug therapy
CPT/HCPCS: 36415; 70486; 80053; 85025; 85610; 85652; 96375; 99284

== ENCOUNTER → 2016-07-26 | Outpatient (CLI) | payer MEDICARE, BC ==
--- NOTE | 2016-07-27 07:20 | PN ---
This is a very pleasant, 85-year-old gentleman with a history of obstructive sleep apnea and follows with Dr. Vela in the sleep center. He has a baseline AHI of 49. He had been using CPAP, which was older generation REMstar with a pressure set at 9 cm of water. He had previously been using a comfort gel full face mask, but was having complaints of leaks. He was last seen in March 2016 and was provided with a new ComfortGel blue mask, which was a nose mask for him to use. He is seen today again in followup. He is doing fairly well. He has not been utilizing his CPAP machine as much as he should based on the poor performance of the old device as well. He was hoping to get a newer CPAP machine. This one is greater than 10 years old. There is no ability to make specific adjustments to make the patient more comfortable. On physical exam, vital signs reveal blood pressure 141/63, heart rate 62, respirations 16, temperature is 98.0. He is 95% O2 saturation on room air. His height is 5 feet 5 inches, weight 212 pounds with a BMI of 35.2. GENERAL APPEARANCE: He is calm and comfortable. HEENT: Negative for JVP. There is no goiter or neck mass. Lungs are clear to auscultation. Heart sounds are regular. S1, S2. His abdomen is soft, nontender. Bowel sounds are present. EXTREMITIES: No significant peripheral edema. No clubbing. No cyanosis. IMPRESSION: 1. Severe symptomatic obstructive sleep apnea with an AHI of 49, still on CPAP pressure of 9 cm of water, but having more difficulty with compliance due to the older generation REMstar CPAP unit which he has concerns is not functioning properly. He is more comfortable with the ComfortGel blue nose mask, part of it. 2. Obesity with a body mass index of 35.2. 3. Symptomatic hypersomnia with [place] Score of 15. 4. Multivessel coronary artery disease with previous bypass surgery. 5. Congestive heart failure with ejection fraction of 35%. 6. Paroxysmal atrial fibrillation. 7. Chronic renal failure. 8. Chronic obstructive pulmonary disease, mild and inactive. 9. Moderately severe periodic limb movements. 10. Remote history of deep venous thrombosis and pulmonary embolism . 11. Hypothyroidism. 12. Hypertension. PLAN: The patient was seen and evaluated by Dr. Vela. The patient's REMstar CPAP unit is quite old and difficult to adjust settings and there is question of proper function. We are attempting to get the patient a new CPAP machine as his previous compliance has been quite well up until recently. Once he gets his new updated CPAP machine, he will be seen in the office and we will have further adjustments made if necessary. The patient and his are both agreeable to the plan and are instructed to call sooner with any other questions or concerns.
== END | disposition home or self-care (01) ==
LOC: SLEEP 16:11
PROVIDERS: ATTEND Internal Medicine Critical Care Medicine
DX: G47.33 Obstructive sleep apnea (adult) (pediatric) (principal); E66.9 Obesity, unspecified; Z68.35 Body mass index [BMI] 35.0-35.9, adult; G47.10 Hypersomnia, unspecified; I25.10 Atherosclerotic heart disease of native coronary artery without angina pectoris; Z95.1 Presence of aortocoronary bypass graft; I50.9 Heart failure, unspecified; I48.0 Paroxysmal atrial fibrillation; N18.9 Chronic kidney disease, unspecified; J44.9 Chronic obstructive pulmonary disease, unspecified; Z86.718 Personal history of other venous thrombosis and embolism; Z86.711 Personal history of pulmonary embolism; E03.9 Hypothyroidism, unspecified; I10 Essential (primary) hypertension

== ENCOUNTER → 2016-09-20 | Outpatient (CLI) | payer MEDICARE, BC ==
--- NOTE | 2016-09-20 21:35 | PN ---
Haim is 85, coming in for a compliancy check regarding his obstructive sleep apnea treatment. His primary care physician is Dr. Hayder Alfonso. This patient was diagnosed having severe LEONCIO with an AHI of 49, and currently he is utilizing CPAP at a pressure of 9 cm of water. I checked his compliance data, and the numbers look very encouraging. The patient is wearing his CPAP every night. His CPAP use for more than 4 hours is 100% of the time. Average CPAP use is around 8 hours per night and his AHI is down to 0.8. His leak factor is 61 liters/minute. I came to find out that the patient is not positioning the CPAP hose properly, and this may be contributing to his leak. He is using an Eson nasal pillow. His sleepiness has improved considerably. No snoring while on CPAP therapy. He is waking up much more alert and awake during the day. His current vital signs are as follows: blood pressure 139/61, pulse 64, respiration 18, temperature 97.6. Weight is 208. [place] score is 14. Saturation 94% on room air. GENERAL APPEARANCE: Calm, comfortable, obese. HEENT: Short neck. Crowding of posterior pharynx. No goiter or neck masses. LUNGS: Clear to auscultation. HEART: Sounds are regular rate and rhythm. Normal S1, S2. ABDOMEN: Soft, nontender. No organomegaly. EXTREMITIES: No edema. No cyanosis or clubbing. IMPRESSION: 1. Severe symptomatic obstructive sleep apnea with an AHI of 49, currently on CPAP pressure of 9. Treatment is successful for now. 2. Increased leak around the mask, probably related to a malpositioning of the CPAP machine hose. 3. Obesity with a body mass index of 35. 4. Chronic hypersomnia, improving. 5. Multi-vessel coronary artery disease with previous bypass surgery. 6. Congestive heart failure with an ejection fraction of 35%. 7. Paroxysmal atrial fibrillation. 8. Chronic renal failure. 9. Chronic obstructive pulmonary disease. 10. Moderately severe periodic limb movements. 11. Deep venous thrombosis/pulmonary embolism, history of. 12. Hypothyroidism. 13. Hypertension. PLAN: 1. Continue CPAP therapy at the same level of pressure. 2. Provided the patient appropriate education regarding the use of the CPAP and positioning of the mask and plugging the hose. 3. See me back in 6 months' time in followup. Treatment is successful. Will make further adjustments on his treatment based on his overall clinical response.
== END | disposition home or self-care (01) ==
LOC: SLEEP 14:47
PROVIDERS: ATTEND Internal Medicine Critical Care Medicine
DX: G47.33 Obstructive sleep apnea (adult) (pediatric) (principal); E66.9 Obesity, unspecified; Z68.35 Body mass index [BMI] 35.0-35.9, adult; G47.13 Recurrent hypersomnia

== ENCOUNTER → 2017-05-23 | Outpatient (CLI) | payer MEDICARE, BC ==
--- NOTE | 2017-05-23 14:05 | PN ---
PROGRESS NOTE Haim is 85 with known history of severe symptomatic LEONCIO with an AHI of 49, treated with a CPAP pressure of 9. The patient is forgetting to put the CPAP unit on on a daily basis. I checked his compliance data. On the days that he has a CPAP machine on, the treatment is successful; however, the issue is to get this patient reminded on putting the machine on prior to him going to bed. He is using a nose mask and I gave him an Eson nasal pillow, medium size for him to continue. He has no specific complaints. No other significant comorbidities over the past 6 months. Weight has been essentially stable. [place] Score is at 8. No other major problems or issues or comorbidities arising over the past 6 months. BP is 146/71, pulse 68, respirations 16, temperature 97.4, saturation 95% on room air. Weight is 239. Height is 5, 5, BMI is 35.4. GENERAL APPEARANCE: Calm, comfortable, in no acute distress. Head is atraumatic, normocephalic. Neck is supple. There is no JVD. No goiter or neck masses. Mallampati class IV. LUNGS: Clear to auscultation. HEART: Sounds regular rate and rhythm. Normal S1, S2, no S3, S4. No murmurs. ABDOMEN: Soft, nontender. No organomegaly. No or guarding. EXTREMITIES: No edema. No cyanosis or clubbing. NEUROLOGIC: Alert and oriented x3. There is no focal neurological deficits. Psychiatrically the patient has normal mood and affect. IMPRESSION: 1. Severe symptomatic obstructive sleep apnea, apnea-hypopnea index of 49. Patient is on CPAP pressure of 8. He will be given an Eson nose mask and he will be asked to wear his CPAP every night. 2. Obesity. 3. Hypersomnia, improving. PLAN: 1. Continue CPAP therapy. 2. Provide Eson nose mask. 3. Encourage weight loss. 4. Will continue to follow. MMODL / IJN: [id number] /
== END | disposition home or self-care (01) ==
LOC: SLEEP 12:57
PROVIDERS: ATTEND Internal Medicine Critical Care Medicine
DX: G47.33 Obstructive sleep apnea (adult) (pediatric) (principal); G47.10 Hypersomnia, unspecified; E66.9 Obesity, unspecified; Z68.35 Body mass index [BMI] 35.0-35.9, adult; Z99.89 Dependence on other enabling machines and devices

== ENCOUNTER → 2017-11-28 | Outpatient (CLI) | payer MEDICARE, BC ==
--- NOTE | 2017-11-28 11:15 | PN ---
PROGRESS NOTE Progress note from the [facility]. An 86-year-old male patient with severe obstructive sleep apnea, coming in for a followup. After several trials and extensive education, the patient has become more compliant with CPAP therapy. He has an AHI of 49, currently on CPAP pressure of 9. He is using his machine every night and he is benefitting from the treatment. He is waking up much more refreshed and alert during the day. His average CPAP is around 7.5 hours based on the compliance data that was collected over the past 30 days. His CPAP use for more than 4 hours 100%, leak factor is per minute. AHI is down to 1. As such, the patient is using his treatment and he is using an Eson nose mask and he is feeling much better and finally we have reached to good successful results in terms of his LEONCIO treatment. REVIEW OF SYSTEMS: A 12-point review of system was done. Positive findings are mentioned above in history of present illness. No complaints. No headaches, no nausea, no vomiting. No heartburn at nighttime, no chest pain. No swelling of lower extremities. No other complaints. PHYSICAL EXAMINATION: BP is 144/70, pulse 60, respirations 16, temperature 98.4, saturation 96% on room air. Weight is 215, height is 5 feet 2 inches, Laurel score is 9, BMI is 38.6. GENERAL APPEARANCE: Calm comfortable. EYES: Atraumatic, normocephalic. Neck is short, supple. Crowding of posterior pharynx is to neck masses. LUNGS: Clear. HEART: Sounds regular rate and rhythm. Normal S1, S2. No S3. No murmurs. ABDOMEN: Soft, nontender. No organomegaly. EXTREMITIES: No edema. No cyanosis or clubbing. NEUROLOGIC: Alert and oriented x3. No focal neurological deficits. PSYCHIATRIC: Negative for anxiety or depression. IMPRESSION: 1. LEONCIO, severe AHI of 49, currently on CPAP pressure of 9 with excellent clinical response and compliance. 2. Obesity, weight stable for now. 3. Hypersomnia, markedly improved. PLAN: 1. Continue CPAP therapy. 2. Renew the Eson nose mask. 3. See me back in a year's time, earlier if needed. MMODL / IJN: [id number] /
== END | disposition home or self-care (01) ==
LOC: SLEEP 09:44
PROVIDERS: ATTEND Internal Medicine Critical Care Medicine
DX: G47.33 Obstructive sleep apnea (adult) (pediatric) (principal); E66.9 Obesity, unspecified; Z68.38 Body mass index [BMI] 38.0-38.9, adult; Z99.89 Dependence on other enabling machines and devices

== ENCOUNTER → 2018-04-04 | Outpatient (CLI) | payer MEDICARE, BC ==
[2018-04-04 14:32] LABS: Basophils % (A) 1 %; Eosinophils # (A) 0.3 k/uL (0-0.7); Eosinophils % (A) 5 %; HCT 35.6 % (39.0-53.0); HGB 11.4 gm/dL (13.0-17.5); Hypochromasia Slight; Lymphocytes # (A) 1.6 k/uL (1.0-4.8); Lymphocytes % (A) 30 %; MCH 31.8 pg (25.0-35.0); MCHC 31.9 g/dL (31.0-37.0); MCV 99.6 fL (80.0-100.0); Macrocytosis Slight; Mean Platelet Volume 7.4; Monocytes # (A) 0.4 k/uL (0-1.0); Monocytes % (A) 7 %; Neutrophils # (A) 3.1 k/uL (1.3-7.7); Neutrophils % (A) 56 %; Platelet Count 178 k/uL (150-450); RBC 3.58 m/uL (4.30-5.90); RDW 14.5 % (11.5-15.5); WBC 5.5 k/uL (3.8-10.6)
[2018-04-04 19:26] LABS: Albumin 4.2 g/dL (3.80-4.90); Albumin/Globulin Ratio 2.47 (1.20-2.10); Anion Gap 4.6 mmol/L (4.00-12.00); Calcium 9.1 mg/dL (8.7-10.3); Carbon Dioxide 31.4 mmol/L (21.6-31.8); Globulin 1.7 g/dL (2.1-3.7); Potassium 5.2 mmol/L (3.5-5.5); Total Bilirubin 0.3 mg/dL (0.3-1.2); Total Protein 5.9 g/dL (6.2-8.2)
== END ==
LOC: LABWHC1 14:02
PROVIDERS: ATTEND Internal Medicine Critical Care Medicine
DX: R06.09 Other forms of dyspnea (principal)
CPT/HCPCS: 36415; 80053; 83880; 85025

== ENCOUNTER 2018-04-06 03:22 | Emergency (ER) | payer MEDICARE, BC ==
[2018-04-06 03:31] VITALS: RESP 18
--- NOTE | 2018-04-06 04:20 | ED ---
General Adult HPI - General Chief complaint: Recheck/Abnormal Lab/Rx Stated complaint: Constipation Time Seen by Provider: 04/06/18 03:52 Source: patient Mode of arrival: ambulatory Limitations: no limitations - History of Present Illness Initial comments: Haim is a pleasant 87-year-old gentleman who presents the emergency department today for evaluation of a possible adverse reaction to medication. Haim reports that he's been dealing with some constipation recently he saw his primary care physician about this and was prescribed MiraLAX. Patient reports that he has been drinking MiraLAX daily all week. Patient reports he did have bowel movement earlier in the night. Patient reports that he began feeling tingling sensation in his bilateral lower extremity similar to when his legs. He. However the sensation kept him awake during the night which prompted him to come to the ER for further evaluation. Patient denies any back pain, bowel or bladder incontinence, urinary retention, saddle anesthesia, or any weakness in the legs. He reports that legs felt "pricky" during the night however bats improving upon arrival to the emergency department. Patient is concerned that the sensation may be related to using MiraLAX as this is a new medication for him. - Related Data Home Medications Medication Instructions Recorded Confirmed Allopurinol [Zyloprim] 100 mg PO HS 09/21/14 06/10/16 Aspirin 81 mg PO HS 09/21/14 06/10/16 Atorvastatin Calcium [Lipitor] 10 mg PO HS 09/21/14 06/10/16 Levothyroxine Sodium [Synthroid] 175 mcg PO DAILY 09/21/14 06/10/16 Sodium Polystyrene Sulfon/Sorb 15 gm PO BID 09/21/14 06/10/16 [Kionex] Sotalol [Betapace] 80 mg PO BID 09/21/14 06/10/16 Valsartan [Diovan] 160 mg PO DAILY 09/21/14 06/10/16 Warfarin [Coumadin] 5 mg PO TUTHSA 06/10/16 06/10/16 Warfarin [Coumadin] 7.5 mg PO SUMOWEFR 06/10/16 06/11/16 Previous Rx's Medication Instructions Recorded Clindamycin [Cleocin] 300 mg PO TID #21 capsule 06/12/16 Fluticasone Nasal [place] [Flonase 1 spray EA NOSTRIL DAILY #1 bottle 06/12/16 Nasal [place]] Loratadine [Claritin] 5 mg PO DAILY #30 06/12/16 Allergies Allergy/AdvReac Type Severity Reaction Status Date / Time adhesive Allergy Unknown Verified 04/06/18 03:31 amoxicillin trihydrate Allergy Unknown Verified 04/06/18 03:31 [From Augmentin] chlorpromazine HCl Allergy Unknown Verified 04/06/18 03:31 [From Thorazine] nitroglycerin Allergy Unknown Verified 04/06/18 03:31 potassium clavulanate Allergy Unknown Verified 04/06/18 03:31 [From Augmentin] Review of Systems ROS Statement: Those systems with pertinent positive or pertinent negative responses have been documented in the HPI. ROS Other: All systems not noted in ROS Statement are negative. Past Medical History Past Medical History: Atrial Fibrillation, Coronary Artery Disease (CAD), Cancer , Deep Vein Thrombosis (DVT), Hyperlipidemia, Hypertension, Myocardial Infarction ([place]), Osteoarthritis (OA), Pulmonary Embolus (PE), Renal Disease, Sleep Apnea/CPAP/BIPAP, Thyroid Disorder Additional Past Medical History / Comment(s): Recent L foot toes injured/bruised , DVT R arm with pulmonary embolism, poor circulation, LEONCIO does not always use CPAP, skin cancer with removal and pt thinks R arm was melanoma, hypothyroid, [place] in 1996. Last Myocardial Infarction Date:: 1996 History of Any Multi-Drug Resistant Organisms: None Reported Past Surgical History: Coronary Bypass/CABG, Heart Catheterization, Hernia Repair, Joint Replacement, Orthopedic Surgery, Pacemaker Additional Past Surgical History / Comment(s): 1996 CABG-5 vessel, L/R total hip arthroplasties, R knee total arthroplasty with revision, skin cancer removals, colonoscopy, pacemaker 2012 while in [place], bilateral cataract removals, R writst with plates and screws, umbilical hernia repair. Past Anesthesia/Blood Transfusion Reactions: No Reported Reaction Type of Cardiac Device: Permanent Pacemaker Device Placement Date:: 2012 Past Psychological History: No Psychological Hx Reported Smoking Status: Former smoker Past Alcohol Use History: Rare Past Drug Use History: None Reported - Past Family History Father Family Medical History: Cancer Additional Family Medical History / Comment(s): Father of colon cancer. Mother Family Medical History: No Reported History Additional Family Medical History / Comment(s): Mother lived to be 76yrs old. General Exam - General Exam Comments Initial Comments: Physical Exam GENERAL: Patient is well-developed and well-nourished. Patient is nontoxic and well- hydrated and is in no distress. HENT: Normocephalic, Atraumatic. EYES: PERRL, EOMI PULMONARY: Unlabored respirations. No audible rales rhonchi or wheezing was noted. CARDIOVASCULAR: There is a regular rate and rhythm without any murmurs gallops or rubs. ABDOMEN: Soft and nontender with normal bowel sounds. SKIN: Skin is clear with no lesions or rashes and otherwise unremarkable. : Deferred NEUROLOGIC: Patient is alert and oriented x3. Moving all extremities spontaneously Normal patellar reflexes Sensation and strength bilateral lower extremities MUSCULOSKELETAL: Normal extremities with adequate strength and full range of motion. No lower extremity swelling or edema. No calf tenderness. PSYCHIATRIC: Normal psychiatric evaluation. Limitations: no limitations Limitations: no limitations Course Vital Signs 04/06/18 04/06/18 03:28 07:25 Temperature 98.4 F 98.2 F Pulse Rate 84 72 Respiratory 18 18 Rate Blood Pressure 133/84 122/79 O2 Sat by Pulse 97 98 Oximetry Medical Decision Making - Medical Decision Making Patient was seen and evaluated, history is obtained from the patient, patient has been suffering from some worsening constipation which is being treated with MiraLAX. Patient reports some prickly or tingling sensation in his legs today. No weakness or gait changes. No red flag symptoms for cauda equina Will obtain labs to ensure that there is no electrolyte abnormalities resulting in paresthesias or myalgias Labs were unremarkable Patient was able to ambulate in the emergency department independently without complication he reports complete resolution of the discomfort in his legs I suspect the patient may be having some paresthesias from sitting, he does report sitting on the toilet for prolonged period of time as he is been constipated. I think he may have some neuropraxia from that but it's resolved prior to arrival. Return parameters were discussed, questions pertaining care were answered patient was discharged home in stable condition. - Lab Data Result diagrams: 04/06/18 05:01 04/06/18 05:01 Lab Results 04/06/18 04/06/18 Range/Units 05:01 05:01 WBC 4.0 (3.8-10.6) k/uL RBC 3.26 L (4.30-5.90) m/uL Hgb 10.4 L (13.0-17.5) gm/dL Hct 32.6 L (39.0-53.0) % MCV 99.8 (80.0-100.0) fL MCH 31.7 (25.0-35.0) pg MCHC 31.8 (31.0-37.0) g/dL RDW 14.3 (11.5-15.5) % Plt Count 140 L (150-450) k/uL Neutrophils % 55 % Lymphocytes % 29 % Monocytes % 7 % Eosinophils % 6 % Basophils % 1 % Neutrophils # 2.2 (1.3-7.7) k/uL Lymphocytes # 1.2 (1.0-4.8) k/uL Monocytes # 0.3 (0-1.0) k/uL Eosinophils # 0.2 (0-0.7) k/uL Basophils # 0.0 (0-0.2) k/uL Hypochromasia Slight Macrocytosis Slight Sodium 142 (137-145) mmol/L Potassium 5.1 (3.5-5.1) mmol/L Chloride 109 H (98-107) mmol/L Carbon Dioxide 27 (22-30) mmol/L Anion Gap 6 mmol/L BUN 35 H (9-20) mg/dL Creatinine 1.10 (0.66-1.25) mg/dL Est GFR (CKD-EPI)AfAm 70 (>60 ml/min/1.73 sqM) Est GFR (CKD-EPI)NonAf 61 (>60 ml/min/1.73 sqM) Glucose 96 (74-99) mg/dL Calcium 8.6 (8.4-10.2) mg/dL Magnesium 2.0 (1.6-2.3) mg/dL Total Bilirubin 0.2 (0.2-1.3) mg/dL AST 20 (17-59) U/L ALT 24 (21-72) U/L Alkaline Phosphatase 97 (38-126) U/L Total Protein 5.9 L (6.3-8.2) g/dL Albumin 3.5 (3.5-5.0) g/dL Disposition Clinical Impression: Paresthesia of bilateral legs Disposition: HOME SELF-CARE Condition: Good Instructions: Paresthesia (ED) Is patient prescribed a controlled substance at d/c from ED?: No Referrals: Hayder Alfonso DO [Primary Care Provider] - 1-2 days
[2018-04-06 05:30] LABS: Basophils % (A) 1 %; Eosinophils # (A) 0.2 k/uL (0-0.7); Eosinophils % (A) 6 %; HCT 32.6 % (39.0-53.0); HGB 10.4 gm/dL (13.0-17.5); Hypochromasia Slight; Lymphocytes # (A) 1.2 k/uL (1.0-4.8); Lymphocytes % (A) 29 %; MCH 31.7 pg (25.0-35.0); MCHC 31.8 g/dL (31.0-37.0); MCV 99.8 fL (80.0-100.0); Macrocytosis Slight; Mean Platelet Volume 6.9; Monocytes # (A) 0.3 k/uL (0-1.0); Monocytes % (A) 7 %; Neutrophils # (A) 2.2 k/uL (1.3-7.7); Neutrophils % (A) 55 %; Platelet Count 140 k/uL (150-450); RBC 3.26 m/uL (4.30-5.90); RDW 14.3 % (11.5-15.5)
[2018-04-06 05:40] LABS: Albumin 3.5 g/dL (3.5-5.0); Calcium 8.6 mg/dL (8.4-10.2); Potassium 5.1 mmol/L (3.5-5.1); Total Bilirubin 0.2 mg/dL (0.2-1.3); Total Protein 5.9 g/dL (6.3-8.2)
[2018-04-06 07:45] VITALS: BP 122/79; PULSE 72; TEMP 98.2
== END 2018-04-06 07:25 | disposition home or self-care (01) ==
LOC: EC 03:22
DX: R20.2 Paresthesia of skin (principal); I48.91 Unspecified atrial fibrillation; I25.10 Atherosclerotic heart disease of native coronary artery without angina pectoris; E78.5 Hyperlipidemia, unspecified; I10 Essential (primary) hypertension; I25.2 Old myocardial infarction; M19.90 Unspecified osteoarthritis, unspecified site; E03.9 Hypothyroidism, unspecified; Z85.828 Personal history of other malignant neoplasm of skin; Z86.711 Personal history of pulmonary embolism; Z86.718 Personal history of other venous thrombosis and embolism; Z87.891 Personal history of nicotine dependence; Z79.01 Long term (current) use of anticoagulants; Z79.82 Long term (current) use of aspirin; Z79.899 Other long term (current) drug therapy; Z88.0 Allergy status to penicillin; Z88.8 Allergy status to other drugs, medicaments and biological substances; Z91.048 Other nonmedicinal substance allergy status; Z95.1 Presence of aortocoronary bypass graft; Z95.818 Presence of other cardiac implants and grafts; Z95.0 Presence of cardiac pacemaker; Z96.651 Presence of right artificial knee joint; Z96.643 Presence of artificial hip joint, bilateral
CPT/HCPCS: 36415; 80053; 83735; 85025; 99283

== ENCOUNTER → 2018-09-05 | Outpatient (CLI) | payer MEDICARE, BC ==
--- NOTE | 2018-09-05 10:48 | XR ---
EXAMINATION TYPE: XR abdomen 1V DATE OF EXAM: 09/05/2018 10:41 AM CLINICAL HISTORY: Abdominal pain and constipation TECHNIQUE: Single upright image of the abdomen is obtained. COMPARISON: None. FINDINGS: There is mild degree colonic stasis in the right hemicolon. Gaseous distention without dila tion of the remainder the colon is seen. No dilated large or small bowel. Punctate hyperdense focus i n the left lateral mid abdomen is likely within bowel and incidentally noted. Lung bases are well aer ated. Large body habitus slightly limits the exam. Flowing osteophytes are seen with moderate degene rative change of the abdomen. Bilateral hip prostheses with surrounding heterotopic ossification are seen. Post CABG changes the chest are partially visualized. IMPRESSION: Mild fecal stasis in the right. Nonobstructive bowel gas pattern.
== END ==
LOC: RADXRMAIN 10:06
PROVIDERS: ATTEND Family Medicine
DX: K59.00 Constipation, unspecified (principal)
CPT/HCPCS: 74018

== ENCOUNTER 2019-01-16 10:23 | Inpatient (IN) | payer MEDICARE, BC ==
[2019-01-16] MEDS ORDERED: methylPREDNISolone SOD SUCCI 125 MG/2 ML VIAL IV STA (10:38)
[2019-01-16] MEDS ORDERED: IPRATROPIUM-ALBUTEROL 3 ML NEB INHALATION STA ×2 (10:38→14:36)
--- NOTE | 2019-01-16 10:42 | ED ---
SOB HPI - General Chief Complaint: Shortness of Breath Stated Complaint: Pneumonia, SOB Time Seen by Provider: 01/16/19 10:31 Source: patient, RN notes reviewed Mode of arrival: wheelchair Limitations: no limitations - History of Present Illness Initial Comments: This 88-year-old male history of COPD he relates to secondary to agent orange exposure who for the last 2 days is had exertional dyspnea shortness of breath slight cough with some phlegm production no chest pain no overt fevers chills or sweats he denies any peripheral edema though his family states he has some increased swelling to the right lower extremity. MD Complaint: shortness of breath - Related Data Home Medications Medication Instructions Recorded Confirmed Allopurinol [Zyloprim] 100 mg PO HS 09/21/14 01/16/19 Atorvastatin Calcium [Lipitor] 10 mg PO HS 09/21/14 01/16/19 Sotalol [Betapace] 80 mg PO BID 09/21/14 01/16/19 Warfarin [Coumadin] 2.5 mg PO SUMOWEFR 06/10/16 01/16/19 Warfarin [Coumadin] 5 mg PO TUTHSA 06/10/16 01/16/19 Furosemide [Lasix] 20 mg PO DAILY 01/16/19 01/16/19 Levothyroxine Sodium [Synthroid] 200 mcg PO DAILY 01/16/19 01/16/19 Allergies Allergy/AdvReac Type Severity Reaction Status Date / Time adhesive Allergy Unknown Verified 01/16/19 10:48 amoxicillin trihydrate Allergy Unknown Verified 01/16/19 10:48 [From Augmentin] chlorpromazine HCl Allergy Unknown Verified 01/16/19 10:48 [From Thorazine] nitroglycerin Allergy Unknown Verified 01/16/19 10:48 potassium clavulanate Allergy Unknown Verified 01/16/19 10:48 [From Augmentin] Review of Systems ROS Statement: Those systems with pertinent positive or pertinent negative responses have been documented in the HPI. ROS Other: All systems not noted in ROS Statement are negative. Past Medical History Past Medical History: Atrial Fibrillation, Coronary Artery Disease (CAD), Cancer, Deep Vein Thrombosis (DVT), Hyperlipidemia, Hypertension, Myocardial Infarction ([place]), Osteoarthritis (OA), Pulmonary Embolus (PE), Renal Disease, Sleep Apnea/CPAP/BIPAP, Thyroid Disorder Additional Past Medical History / Comment(s): Recent L foot toes injured/bruised, DVT R arm with pulmonary embolism, poor circulation, LEONCIO does not always use CPAP, skin cancer with removal and pt thinks R arm was melanoma, hypothyroid, [place] in 1996. Last Myocardial Infarction Date:: 1996 History of Any Multi-Drug Resistant Organisms: None Reported Past Surgical History: Coronary Bypass/CABG, Heart Catheterization, Hernia Repair, Joint Replacement, Orthopedic Surgery, Pacemaker Additional Past Surgical History / Comment(s): 1996 CABG-5 vessel, L/R total hip arthroplasties, R knee total arthroplasty with revision, skin cancer removals, colonoscopy, pacemaker 2012 while in [place], bilateral cataract removals, R writst with plates and screws, umbilical hernia repair. Past Anesthesia/Blood Transfusion Reactions: No Reported Reaction Type of Cardiac Device: Permanent Pacemaker Device Placement Date:: 2012 Past Psychological History: No Psychological Hx Reported Smoking Status: Former smoker Past Alcohol Use History: Rare Past Drug Use History: None Reported - Past Family History Father Family Medical History: Cancer Additional Family Medical History / Comment(s): Father of colon cancer. Mother Family Medical History: No Reported History Additional Family Medical History / Comment(s): Mother lived to be 76yrs old. General Exam - General Exam Comments Initial Comments: Is a well-developed well-nourished awake alert oriented 3 male Limitations: no limitations General appearance: alert, in distress Head exam: Present: atraumatic, normocephalic, normal inspection Eye exam: Present: normal appearance, PERRL, EOMI. Absent: scleral icterus, conjunctival injection, periorbital swelling ENT exam: Present: mucous membranes dry Neck exam: Present: normal inspection, full ROM, other (No stridor JVD or bruit s). Absent: tenderness, meningismus, lymphadenopathy Respiratory exam: Present: decreased breath sounds, other (Some scattered crackles). Absent: respiratory distress, wheezes, rales, rhonchi, stridor Cardiovascular Exam: Present: regular rate, normal rhythm, normal heart sounds. Absent: systolic murmur, diastolic murmur, rubs, gallop, clicks GI/Abdominal exam: Present: soft, normal bowel sounds. Absent: distended, te nderness, guarding, rebound, rigid Extremities exam: Present: full ROM, normal capillary refill, pedal edema (Trace edema with stasis changes especially on the right). Absent: tenderness, joint swelling, calf tenderness Back exam: Present: normal inspection Neurological exam: Present: alert, oriented X3, CN II-XII intact Psychiatric exam: Present: normal affect, normal mood Skin exam: Present: warm, dry, intact. Absent: rash Course Vital Signs 01/16/19 01/16/19 01/16/19 10:26 11:00 11:02 Temperature 98.1 F Pulse Rate 95 60 60 Respiratory 20 24 Rate Blood Pressure 132/57 146/69 O2 Sat by Pulse 83 L 96 Oximetry 01/16/19 01/16/19 01/16/19 11:10 11:30 12:00 Temperature Pulse Rate 80 60 60 Respiratory 20 18 Rate Blood Pressure 146/69 134/63 O2 Sat by Pulse 95 96 Oximetry 01/16/19 12:30 Temperature Pulse Rate 60 Respiratory 20 Rate Blood Pressure 146/73 O2 Sat by Pulse 96 Oximetry - Reevaluation(s) Reevaluation #1: 01/16/19 14:22 Evaluation patient reveals minimal improvement thus far. He does demonstrate exertional dyspnea with hypoxemia Reevaluation #2: 01/16/19 14:31 Reevaluation reveals some increased aeration he does demonstrate basilar rales Medical Decision Making - Medical Decision Making I did discuss with the patient family regarding findings patient will be admitted the case was discussed with Dr. Vick. A VQ scan be ordered. Dr. Vela will be consulted - Lab Data Result diagrams: 01/16/19 11:31 01/16/19 11:31 Lab Results 01/16/19 01/16/19 01/16/19 Range/Units 11:31 11:31 11:31 WBC 5.7 (3.8-10.6) k/uL RBC 3.47 L (4.30-5.90) m/uL Hgb 11.1 L (13.0-17.5) gm/dL Hct 34.7 L (39.0-53.0) % MCV 100.0 (80.0-100.0) fL MCH 32.0 (25.0-35.0) pg MCHC 32.0 (31.0-37.0) g/dL RDW 15.6 H (11.5-15.5) % Plt Count 131 L (150-450) k/uL Neutrophils % 64 % Lymphocytes % 22 % Monocytes % 7 % Eosinophils % 4 % Basophils % 1 % Neutrophils # 3.7 (1.3-7.7) k/uL Lymphocytes # 1.3 (1.0-4.8) k/uL Monocytes # 0.4 (0-1.0) k/uL Eosinophils # 0.2 (0-0.7) k/uL Basophils # 0.1 (0-0.2) k/uL Hypochromasia Slight Macrocytosis Slight PT 12.5 H (9.0-12.0) sec INR 1.2 H (<1.2) APTT 23.7 (22.0-30.0) sec D-Dimer 0.79 H (<0.60) mg/L FEU Sodium 142 (137-145) mmol/L Potassium 5.3 H (3.5-5.1) mmol/L Chloride 106 (98-107) mmol/L Carbon Dioxide 32 H (22-30) mmol/L Anion Gap 4 mmol/L BUN 50 H (9-20) mg/dL Creatinine 1.33 H (0.66-1.25) mg/dL Est GFR (CKD-EPI)AfAm 56 (>60 ml/min/1.73 sqM) Est GFR (CKD-EPI)NonAf 48 (>60 ml/min/1.73 sqM) Glucose 110 H (74-99) mg/dL Calcium 8.8 (8.4-10.2) mg/dL Magnesium 2.3 (1.6-2.3) mg/dL Total Bilirubin 0.5 (0.2-1.3) mg/dL AST 28 (17-59) U/L ALT 17 L (21-72) U/L Alkaline Phosphatase 89 (38-126) U/L Creatine Kinase 64 (55-170) U/L Troponin I (0.000-0.034) ng/mL Total Protein 6.1 L (6.3-8.2) g/dL Albumin 3.6 (3.5-5.0) g/dL 01/16/19 Range/Units 11:31 WBC (3.8-10.6) k/uL RBC (4.30-5.90) m/uL Hgb (13.0-17.5) gm/dL Hct (39.0-53.0) % MCV (80.0-100.0) fL MCH (25.0-35.0) pg MCHC (31.0-37.0) g/dL RDW (11.5-15.5) % Plt Count (150-450) k/uL Neutrophils % % Lymphocytes % % Monocytes % % Eosinophils % % Basophils % % Neutrophils # (1.3-7.7) k/uL Lymphocytes # (1.0-4.8) k/uL Monocytes # (0-1.0) k/uL Eosinophils # (0-0.7) k/uL Basophils # (0-0.2) k/uL Hypochromasia Macrocytosis PT (9.0-12.0) sec INR (<1.2) APTT (22.0-30.0) sec D-Dimer (<0.60) mg/L FEU Sodium (137-145) mmol/L Potassium (3.5-5.1) mmol/L Chloride (98-107) mmol/L Carbon Dioxide (22-30) mmol/L Anion Gap mmol/L BUN (9-20) mg/dL Creatinine (0.66-1.25) mg/dL Est GFR (CKD-EPI)AfAm (>60 ml/min/1.73 sqM) Est GFR (CKD-EPI)NonAf (>60 ml/min/1.73 sqM) Glucose (74-99) mg/dL Calcium (8.4-10.2) mg/dL Magnesium (1.6-2.3) mg/dL Total Bilirubin (0.2-1.3) mg/dL AST (17-59) U/L ALT (21-72) U/L Alkaline Phosphatase (38-126) U/L Creatine Kinase (55-170) U/L Troponin I 0.020 (0.000-0.034) ng/mL Total Protein (6.3-8.2) g/dL Albumin (3.5-5.0) g/dL - EKG Data -: EKG Interpreted by Me (EKG showed electronic atrial pacemaker rate was 60 QRS 1:30 QT since QTC 46) - Radiology Data Radiology results: report reviewed (I did review the imaging and report evidence of increased pulmonary vascular markings consistent with congestive heart failure.) Critical Care Time Critical Care Time: Yes Critical Care Time: 39 minutes of critical care time which includes initial presentation with history physical labs x-rays multiple reevaluation the patient response to therapy discuss with the admitting physician admission orders review of old charting was available documentation of the above Disposition Clinical Impression: Acute exacerbation of chronic obstructive pulmonary disease, Congestive heart failure, Acute respiratory distress syndrome in adult, Renal insufficiency syndrome, Elevated d-dimer Disposition: ADMITTED IP TO THIS HOSP Condition: Fair Referrals: Hayder Alfonso DO [Primary Care Provider] - 1-2 days
[2019-01-16 11:50] LABS: Basophils # (A) 0.1 k/uL (0-0.2); Basophils % (A) 1 %; Eosinophils # (A) 0.2 k/uL (0-0.7); Eosinophils % (A) 4 %; HCT 34.7 % (39.0-53.0); HGB 11.1 gm/dL (13.0-17.5); Hypochromasia Slight; Lymphocytes # (A) 1.3 k/uL (1.0-4.8); Lymphocytes % (A) 22 %; Macrocytosis Slight; Mean Platelet Volume 6.8; Monocytes # (A) 0.4 k/uL (0-1.0); Monocytes % (A) 7 %; Neutrophils # (A) 3.7 k/uL (1.3-7.7); Neutrophils % (A) 64 %; Platelet Count 131 k/uL (150-450); RBC 3.47 m/uL (4.30-5.90); RDW 15.6 % (11.5-15.5); WBC 5.7 k/uL (3.8-10.6)
[2019-01-16 12:02] LABS: Albumin 3.6 g/dL (3.5-5.0); Calcium 8.8 mg/dL (8.4-10.2); Magnesium 2.3 mg/dL (1.6-2.3); Total Bilirubin 0.5 mg/dL (0.2-1.3); Total Protein 6.1 g/dL (6.3-8.2)
[2019-01-16 12:03] LABS: INR 1.2 (<1.2); Partial Thromboplastin Time 23.7 sec (22.0-30.0); Prothrombin Time 12.5 sec (9.0-12.0)
--- NOTE | 2019-01-16 12:06 | XR ---
EXAMINATION TYPE: XR chest 2V DATE OF EXAM: 01/16/2019 COMPARISON: Chest x-ray December 04, 2014 and more nor x-ray April 04, 2018 HISTORY: Hypoxia. TECHNIQUE: Frontal and lateral views of the chest are obtained. FINDINGS: Overlying sternal wires and mediastinal clips are redemonstrated. There is chronic change w ithout definitive new peripheral focal air space opacity, pleural effusion, or pneumothorax seen. Dim inished inspiration noted. The cardiac silhouette size remains enlarged with dual lead pacemaker. S uspect some new central vascular congestion. Degenerative changes both shoulders and spine are seen.. IMPRESSION: Correlate for CHF exacerbation as there is cardiomegaly redemonstrated with suspected ne w central vascular congestion.
[2019-01-16 12:10] LABS: D-Dimer 0.79 mg/L FEU (<0.60)
[2019-01-16 12:11] LABS: Potassium 5.3 mmol/L (3.5-5.1)
[2019-01-16] MEDS ORDERED: FUROSEMIDE 10 MG/ML 4 ML VIAL IV STA (12:13)
--- NOTE | 2019-01-16 15:10 | P.HPIM ---
History of Present Illness H&P Date: 01/16/19 Chief Complaint: Shortness of breath, new onset CHF This is a pleasant 88-year-old gentleman patient of Dr. Naty Estevez activity and. He has underlying history of COPD is related to agent orange, CAD, CK D, atrial fibrillation, hypertension hyperlipidemia hypothyroidism, diabetes mellitus type 2 admitted to the hospital secondary to shortness of breath for 3 days. Patient has had dyspnea and exertion, no palpitations, no chest pain, patient denies any pleurisy, no hemoptysis. He has some productive phlegm, no myalgia, no sick contacts for influenza, denies any peripheral edema, however family has related to increasing lower leg edema. He is chronically on Coumadin for chronic anti-coagulation for A. fib his last echocardiogram was over 6 months ago Patient is admitted for acute COPD exacerbation along with the onset CHF and a Dr. Addison distress syndrome, renal sufficiency elevated d-dimer, from the emergency room. He is imaging studies showed chest x-ray, evidence of increased pulmonary vascular marking clips consistent with CHF, EKG shows electronic atrial pacemaker with heart rate of 60, creatinine 1.33, INR of 1.2, WBC count 5.7, hemoglobin 11.1, creatinine 1.33. Troponin of 0.02, no anti-proBNP done Review of Systems Constitutional: Reports as per HPI, Reports malaise, Reports weakness, Denies anorexia, Denies chills, Denies chronic headaches, Denies chronic pain, Denies daytime sleepiness, Denies fatigue, Denies fever, Denies lethargy, Denies night sweats, Denies poor appetite, Denies sweats, Denies weight gain, Denies weight loss Ears, nose, mouth and throat: Reports as per HPI, Denies ant. neck pain, Denies bleeding gums, Denies dental pain, Denies dysphagia, Denies epistaxis, Denies headache, Denies hoarseness, Denies mouth pain, Denies nasal congestion, Denies nasal discharge, Denies neck fullness/pressure, Denies neck lump, Denies nose pain, Denies odynophagia, Denies post-nasal drip, Denies sinus pain, Denies sinus pressure, Denies swelling in mouth, Denies swelling in throat, Denies sore throat, Denies vertigo, Denies voice changes Cardiovascular: Reports as per HPI, Reports dyspnea on exertion, Reports shortness of breath Respiratory: Reports as per HPI, Reports cough with sputum, Reports wheezing, Denies congestion, Denies cough, Denies dyspnea, Denies excessive sputum, Denies hemoptysis, Denies home oxygen, Denies pain, Denies pain on inspiration, Denies pleurisy, Denies respiratory infections, Denies sleep apnea, Denies snoring Gastrointestinal: Reports as per HPI Genitourinary: Reports as per HPI Musculoskeletal: Reports as per HPI, Reports muscle weakness Integumentary: Reports as per HPI Neurological: Reports as per HPI Psychiatric: Reports as per HPI Endocrine: Reports as per HPI Hematologic/Lymphatic: Reports as per HPI, Denies easy bleeding, Denies easy bruising, Denies lymphadenopathy, Denies lymphedema, Denies thrombophilia Allergic/Immunologic: Reports as per HPI, Denies allergic rhinitis, Denies anaphylaxis, Denies angioedema, Denies gluten intolerance, Denies persistent infections, Denies seasonal allergies, Denies urticaria, Denies wheezing Past Medical History Past Medical History: Atrial Fibrillation, Coronary Artery Disease (CAD), Cancer, Deep Vein Thrombosis (DVT), Hyperlipidemia, Hypertension, Myocardial Infarction ([place]), Osteoarthritis (OA), Pulmonary Embolus (PE), Renal Disease, S leep Apnea/CPAP/BIPAP, Thyroid Disorder Additional Past Medical History / Comment(s): Recent L foot toes injured/bruised, DVT R arm with pulmonary embolism, poor circulation, LEONCIO does not always use CPAP, skin cancer with removal and pt thinks R arm was melanoma, hypothyroid, [place] in 1996. Last Myocardial Infarction Date:: 1996 History of Any Multi-Drug Resistant Organisms: None Reported Past Surgical History: Coronary Bypass/CABG, Heart Catheterization, Hernia Repair, Joint Replacement, Orthopedic Surgery, Pacemaker Additional Past Surgical History / Comment(s): 1996 CABG-5 vessel, L/R total hip arthroplasties, R knee total arthroplasty with revision, skin cancer removals, colonoscopy, pacemaker 2012 while in [place], bilateral cataract removals, R writst with plates and screws, umbilical hernia repair. Past Anesthesia/Blood Transfusion Reactions: No Reported Reaction Type of Cardiac Device: Permanent Pacemaker Device Placement Date:: 2012 Past Psychological History: No Psychological Hx Reported Smoking Status: Former smoker Past Alcohol Use History: Rare Past Drug Use History: None Reported - Past Family History Father Family Medical History: Cancer Additional Family Medical History / Comment(s): Father of colon cancer. Mother Family Medical History: No Reported History Additional Family Medical History / Comment(s): Mother lived to be 76yrs old. Medications and Allergies Home Medications Medication Instructions Recorded Confirmed Type Allopurinol [Zyloprim] 100 mg PO HS 09/21/14 01/16/19 History Atorvastatin Calcium [Lipitor] 10 mg PO HS 09/21/14 01/16/19 History Sotalol [Betapace] 80 mg PO BID 09/21/14 01/16/19 History Warfarin [Coumadin] 2.5 mg PO SUMOWEFR 06/10/16 01/16/19 History Warfarin [Coumadin] 5 mg PO TUTHSA 06/10/16 01/16/19 History Furosemide [Lasix] 20 mg PO DAILY 01/16/19 01/16/19 History Levothyroxine Sodium [Synthroid] 200 mcg PO DAILY 01/16/19 01/16/19 History Allergies Allergy/AdvReac Type Severity Reaction Status Date / Time adhesive Allergy Unknown Verified 01/16/19 10:48 amoxicillin trihydrate Allergy Unknown Verified 01/16/19 10:48 [From Augmentin] chlorpromazine HCl Allergy Unknown Verified 01/16/19 10:48 [From Thorazine] nitroglycerin Allergy Unknown Verified 01/16/19 10:48 potassium clavulanate Allergy Unknown Verified 01/16/19 10:48 [From Augmentin] Physical Exam Vitals: Vital Signs Temp Pulse Resp BP Pulse Ox 01/16/19 14:00 60 16 161/85 96 01/16/19 13:00 60 17 146/73 97 01/16/19 12:30 60 20 146/73 96 01/16/19 12:00 60 18 134/63 96 01/16/19 11:30 60 20 146/69 95 01/16/19 11:10 80 01/16/19 11:02 60 01/16/19 11:00 60 24 146/69 96 01/16/19 10:26 98.1 F 95 20 132/57 83 L Intake and Output 01/15/19 01/16/19 01/16/19 22:59 06:59 14:59 Other: Weight 96.162 kg - Constitutional General appearance: cooperative, no acute distress - EENT Eyes: anicteric sclerae, EOMI, PERRLA, dentition normal, normal appearance ENT: hard of hearing, NA/AT - Neck Neck: normal ROM - Respiratory Respiratory: bilateral: diminished, wheezing, prolonged expiration, negative: CTA, prolonged inspiration - Cardiovascular Rhythm: regular Heart sounds: normal: S1, S2 Abnormal Heart Sounds: no systolic murmur, no diastolic murmur, no rub, no S3 Ga llop, no S4 Gallop, no click, no other - Gastrointestinal General gastrointestinal: normal bowel sounds, soft - Integumentary Integumentary: decreased turgor, normal - Neurologic Neurologic: CNII-XII intact - Musculoskeletal Musculoskeletal: gait normal, strength equal bilaterally - Psychiatric Psychiatric: A&O x's 3, appropriate affect, intact judgment & insight Results CBC & Chem 7: 01/16/19 11:31 01/16/19 11:31 Labs: Abnormal Lab Results - Last 24 Hours (Table) 01/16/19 01/16/19 01/16/19 Range/Units 11:31 11:31 11:31 RBC 3.47 L (4.30-5.90) m/uL Hgb 11.1 L (13.0-17.5) gm/dL Hct 34.7 L (39.0-53.0) % RDW 15.6 H (11.5-15.5) % Plt Count 131 L (150-450) k/uL PT 12.5 H (9.0-12.0) sec INR 1.2 H (<1.2) D-Dimer 0.79 H (<0.60) mg/L FEU Potassium 5.3 H (3.5-5.1) mmol/L Carbon Dioxide 32 H (22-30) mmol/L BUN 50 H (9-20) mg/dL Creatinine 1.33 H (0.66-1.25) mg/dL Glucose 110 H (74-99) mg/dL ALT 17 L (21-72) U/L Total Protein 6.1 L (6.3-8.2) g/dL Assessment and Plan Plan: 1. acute COPD exacerbation, with acute diastolic CHF exacerbation, consult were made with Dr. Vela and , patient is chronically on Coumadin, subtherapeutic INRs, history of DVT Coumadin will be resumed, his medications were readjusted by PCP 2 weeks ago, on the lower dose. Nuclear med has been ordered from the knee just secondary to elevated d-dimer, patient might need to be bridged with either IV heparin or Lovenox on till INR is therapeutic. IV Lasix, echocardiogram, IV steroids and nebulized albuterol and Atrovent and budesonide. No purulence noted on clinical examination, might need proctostomy in or sputum culture if patient gets worse no antibiotics started at this time. We will continue to monitor 2. Chronic kidney disease: With stage III CK-MB has been seen nephrology regular basis continue to watch his BUN/creatinine daily. 3 A. fib with pulse rates under control patient is on Betapace along with warfarin PT/INR be done daily. 4 hypothyroidism: Has been on levothyroxine 200 g daily continue medication. 5 hyperlipidemia: On Lipitor 10 mg daily. 6 hypertension: Patient is not on calcium channel nicolette or SIDDHARTHA inhibitor prior to admission, unknown reason, this needs to be clarified he was on Diovan in the past, we'll going to be introduced this, 80 mg daily 7 gout with no flareup or recurrent symptoms patient has been on Zyloprim 100 mg daily. 8 Anticoagulation: Patient is on warfarin PT/INR be done daily. 11 GI prophylaxis: Patient will be on Pepcid 20 mg daily. CODE STATUS: Full code. Expectation from this admission: Patient be in the hospital for more than 2 nights.
--- NOTE | 2019-01-16 17:15 | NM ---
EXAMINATION TYPE: NM pul vent and perfuse DATE OF EXAM: 01/16/2019 COMPARISON: Chest x-ray the same day HISTORY: Dyspnea with elevated d-dimer TECHNIQUE: Utilizing inhalation of 61.5 mCi Tc 99m DTPA aerosol and intravenous injection of 4.9 mCi of Tc 99m MAA, ventilation and perfusion images are acquired post injection in multiple projections. FINDINGS: Matched ventilation and perfusion defects are seen of the bilateral lung apices and right lung base w ith matched defects are also seen in the anterior left upper lobe, lingula, and anterior right upper lobe. Radiograph demonstrates no focal pneumonia at these locations. No pleural effusion is seen. IMPRESSION: Intermediate probability for pulmonary embolus as there are numerous matched defects throughout both lungs without mismatch defect in either lung.
[2019-01-16] MEDS: IPRATROPIUM-ALBUTEROL 3 ML NEB INHALATION SCH ×2 (17:51→20:32)
[2019-01-16] MEDS ORDERED: ENOXAPARIN 100 MG/ML SYRINGE SQ STA (17:56)
[2019-01-16] MEDS ORDERED: WARFARIN 2.5 MG TAB PO SCH (18:00)
[2019-01-16] MEDS: methylPREDNISolone SOD SUCCI 125 MG/2 ML VIAL IV SCH ×2 (18:53→22:44)
[2019-01-16] MEDS: WARFARIN 5 MG TAB PO SCH (18:53)
[2019-01-16 19:53] LABS: Glucose,Whole Blood 162 mg/dL (75-99)
[2019-01-16] MEDS: SOTALOL 80 MG TAB PO SCH (20:26)
[2019-01-16] MEDS: ATORVASTATIN 10 MG TAB PO SCH (20:26)
[2019-01-16] MEDS: ALLOPURINOL 100 MG TAB PO SCH (20:26)
[2019-01-16] MEDS: FUROSEMIDE 10 MG/ML 4 ML VIAL IV SCH (20:26)
[2019-01-16] MEDS: BUDESONIDE 0.5 MG/2 ML NEBU INHALATION SCH (20:32)
[2019-01-17] MEDS: IPRATROPIUM-ALBUTEROL 3 ML NEB INHALATION SCH ×7 (00:03→23:52)
[2019-01-17] MEDS: LEVOTHYROXINE 100 MCG TAB PO SCH (05:40)
[2019-01-17] MEDS: methylPREDNISolone SOD SUCCI 125 MG/2 ML VIAL IV SCH (05:40)
[2019-01-17] MEDS: INSULIN ASPART (NovoLOG) 100 UNIT/ML VIAL SQ SCH ×4 (05:47→21:13)
[2019-01-17 05:59] LABS: Glucose,Whole Blood 138 mg/dL (75-99)
[2019-01-17 06:18] LABS: INR 1.3 (<1.2); Prothrombin Time 13.4 sec (9.0-12.0)
[2019-01-17] MEDS ORDERED: FUROSEMIDE 20 MG TAB PO SCH (09:00)
[2019-01-17] MEDS: FUROSEMIDE 10 MG/ML 4 ML VIAL IV SCH ×2 (09:01→21:13)
[2019-01-17] MEDS: SOTALOL 80 MG TAB PO SCH ×2 (09:01→21:13)
[2019-01-17] MEDS: BUDESONIDE 0.5 MG/2 ML NEBU INHALATION SCH ×2 (09:09→20:30)
--- NOTE | 2019-01-17 10:58 | ECHOF ---
Referral Reason:dyspnea, chf MEASUREMENTS -------- HEIGHT: 160.0 cm WEIGHT: 92.1 kg BP: 150/72 RVIDd: 4.1 cm (< 3.3) IVSd: 2.1 cm (0.6 - 1.1) LVIDd: 4.6 cm (3.9 - 5.3) LVPWd: 2.3 cm (0.6 - 1.1) IVSs: 2.4 cm LVIDs: 3.6 cm LVPWs: 2.7 cm LAESV Index (A-L): 59.08 ml/m Ao Diam: 4.7 cm (2.0 - 3.7) AV Cusp: 1.5 cm (1.5 - 2.6) LA Diam: 5.2 cm (2.7 - 3.8) EPSS: 0.8 cm MV E Koffi: 0.74 m/s MV DecT: 173 ms MV A Koffi: 0.89 m/s MV E/A Ratio: 0.82 AV maxP.08 mmHg AV meanP.81 mmHg RAP: 5.00 mmHg RVSP: 43.00 mmHg MV EF SLOPE: 74.96 mm/s (70 - 150) MV EXCURSION: 1.51 cm (> 18.000) FINDINGS -------- Pacerwire seen in RV and RA. This was a technically difficult study with suboptimal views. The left ventricular size is normal. There is mild concentric left ventricular hypertrophy. Overa ll left ventricular systolic function is low-normal with, an EF between 50 - 55 %. Mitral Doppler i nflow pattern suggests diastolic filling abnormality Grade II. The right ventricle is moderately enlarged. Left atrium is severely dilated by volume. The right atrium was not well visualized. Lumason used Interatrial and interventricular septum intact. There is no evidence of aortic regurgitation. There is mild aortic stenosis present. Peak/mean gr adient across the valve is 24.08mmHg / 10.81mmHg. Mild mitral annular calcification present. Mild mitral regurgitation is present. [id number] tricuspid regurgitation present. There is moderate pulmonary hypertension. The r ight ventricular systolic pressure, as measured by Doppler, is 43.00mmHg. There is no pulmonic regurgitation present. The aortic root size is normal. IVC not well visualized There is no pericardial effusion. CONCLUSIONS -------- 1. Pacerwire seen in RV and RA. 2. This was a technically difficult study with suboptimal views. 3. The left ventricular size is normal. 4. There is mild concentric left ventricular hypertrophy. 5. Overall left ventricular systolic function is low-normal with, an EF between 50 - 55 %. 6. Mitral Doppler inflow pattern suggests diastolic filling abnormality. Grade II. 7. The right ventricle is moderately enlarged. 8. Left atrium is severely dilated by volume. 9. Lumason used 10. There is no evidence of aortic regurgitation. 11. There is mild aortic stenosis present. 12. Peak/mean gradient across the valve is 24.08mmHg / 10.81mmHg. 13. Mild mitral annular calcification present. 14. Mild mitral regurgitation is present. 15. [id number] tricuspid regurgitation present. 16. There is moderate pulmonary hypertension. 17. There is no pulmonic regurgitation present. 18. The aortic root size is normal. 19. IVC not well visualized 20. There is no pericardial effusion. TIP TESTER: Lizzeth Grider RDCS
[2019-01-17 11:18] VITALS: BMI 36.0
[2019-01-17 11:24] LABS: Glucose,Whole Blood 169 mg/dL (75-99)
[2019-01-17] MEDS ORDERED: ENOXAPARIN 100 MG/ML SYRINGE SQ STA (15:07)
--- NOTE | 2019-01-17 15:26 | P.PN ---
Subjective Progress Note Date: 01/17/19 This is a pleasant 88-year-old gentleman patient of Dr. Alfonso and Dr. Kathleen with underlying history of COPD is related to agent orange, CAD, CK D, atrial fibrillation, hypertension hyperlipidemia hypothyroidism, diabetes mellitus type 2 admitted to the hospital secondary to shortness of breath for 3 days. Patient has had dyspnea and exertion, no palpitations, no chest pain, patient denies any pleurisy, no hemoptysis. He has some productive phlegm, no myalgia, no sick contacts for influenza, denies any peripheral edema, however family has related to increasing lower leg edema. He is chronically on Coumadin for chronic anti-coagulation for A. fib his last echocardiogram was over 6 mon ths ago Patient is admitted for acute COPD exacerbation along with the onset CHF and a Dr. Addison distress syndrome, renal sufficiency elevated d-dimer, from the emergency room. He is imaging studies showed chest x-ray, evidence of increased pulmonary vascular marking clips consistent with CHF, EKG shows electronic atrial pacemaker with heart rate of 60, creatinine 1.33, INR of 1.2, WBC count 5.7, hemoglobin 11.1, creatinine 1.33. Troponin of 0.02, no anti-proBNP done 01/17: Echocardiogram reveals EF of 50-55% with mild concentric left ventricular hypertrophy, mild aortic stenosis, mild mitral regurgitation, mild to moderate tricuspid regurgitation, moderate pulmonary hypertension. VQ scan is intermediate probability for pulmonary embolus. Dr. Vela is on consult. Patient states he has occasional cough. He denies any nausea, abdominal pain. Is currently on Lasix 40 mg IV every 12 hours which will be continued. Solu- Medrol changed to 40 mg every 8 hours. Patient states he is on Lyrica at home that helps him with sleep and restless leg syndrome. Melatonin added. INR toda y is 1.3 and additional dose of Lovenox ordered. Weight is down 2 kg. TSH 0.595, pro-calcitonin normal. ProBNP 4100. Repeat troponins were 0.020 and 0.014. Objective - Vital Signs Vital signs: Vital Signs Temp 98 F 01/17/19 11:05 Pulse 67 01/17/19 11:05 Resp 16 01/17/19 11:05 BP 137/74 01/17/19 11:05 Pulse Ox 95 01/17/19 11:15 Intake & Output 01/16/19 01/17/19 01/17/19 18:59 06:59 18:59 Intake Total 222 Output Total 900 Balance -678 Weight 94.3 kg 92.2 kg 92.2 kg Intake: Oral 222 Output: Urine 900 Other: Voiding Method Urinal # Voids 1 3 - Exam Review of Systems Constitutional: Reports as per HPI, Reports malaise, Reports weakness, Denies anorexia, Denies chills, Denies chronic headaches, Denies chronic pain, Denies daytime sleepiness, Denies fatigue, Denies fever, Denies lethargy, Denies night sweats, Denies poor appetite, Denies sweats, Denies weight gain, Denies weight loss Ears, nose, mouth and throat: Reports as per HPI, Denies ant. neck pain, Denies bleeding gums, Denies dental pain, Denies dysphagia, Denies epistaxis, Denies headache, Denies hoarseness, Denies mouth pain, Denies nasal congestion, Denies nasal discharge, Denies neck fullness/pressure, Denies neck lump, Denies nose pain, Denies odynophagia, Denies post-nasal drip, Denies sinus pain, Denies sinus pressure, Denies swelling in mouth, Denies swelling in throat, Denies sore throat, Denies vertigo, Denies voice changes Cardiovascular: Reports as per HPI, Reports dyspnea on exertion, Reports shortness of breath Respiratory: Reports as per HPI, Reports cough with sputum, Reports wheezing, Denies congestion, Denies cough, Denies dyspnea, Denies excessive sputum, Denies hemoptysis, Denies home oxygen, Denies pain, Denies pain on inspiration, Denies pleurisy, Denies respiratory infections, Denies sleep apnea, Denies snoring Gastrointestinal: Reports as per HPI Genitourinary: Reports as per HPI Musculoskeletal: Reports as per HPI, Reports muscle weakness Integumentary: Reports as per HPI Neurological: Reports as per HPI Psychiatric: Reports as per HPI Endocrine: Reports as per HPI Hematologic/Lymphatic: Reports as per HPI, Denies easy bleeding, Denies easy bruising, Denies lymphadenopathy, Denies lymphedema, Denies thrombophilia Allergic/Immunologic: Reports as per HPI, Denies allergic rhinitis, Denies anaphylaxis, Denies urticaria, Denies wheezing - Constitutional General appearance: cooperative, no acute distress - EENT Eyes: anicteric sclerae, EOMI, PERRLA, dentition normal, normal appearance ENT: hard of hearing, NA/AT - Neck Neck: normal ROM - Respiratory Respiratory: bilateral: diminished, minimal wheezing, prolonged expiration, negative: CTA, prolonged inspiration - Cardiovascular Rhythm: regular Heart sounds: normal: S1, S2 Abnormal Heart Sounds: no systolic murmur, no diastolic murmur, no rub, no S3 Gallop, no S4 Gallop, no click, no other - Gastrointestinal General gastrointestinal: normal bowel sounds, soft - Integumentary Integumentary: decreased turgor, normal - Neurologic Neurologic: CNII-XII intact - Musculoskeletal Musculoskeletal: gait normal, strength equal bilaterally - Psychiatric Psychiatric: A&O x's 3, appropriate affect, intact judgment & insight - Labs CBC & Chem 7: 01/16/19 11:31 01/16/19 11:31 Labs: Abnormal Lab Results - Last 24 Hours (Table) 01/16/19 01/16/19 01/16/19 Range/Units 11:31 11:31 11:31 RBC 3.47 L (4.30-5.90) m/uL Hgb 11.1 L (13.0-17.5) gm/dL Hct 34.7 L (39.0-53.0) % RDW 15.6 H (11.5-15.5) % Plt Count 131 L (150-450) k/uL PT 12.5 H (9.0-12.0) sec INR 1.2 H (<1.2) D-Dimer 0.79 H (<0.60) mg/L FEU Potassium 5.3 H (3.5-5.1) mmol/L Carbon Dioxide 32 H (22-30) mmol/L BUN 50 H (9-20) mg/dL Creatinine 1.33 H (0.66-1.25) mg/dL Glucose 110 H (74-99) mg/dL POC Glucose (mg/dL) (75-99) mg/dL ALT 17 L (21-72) U/L Total Protein 6.1 L (6.3-8.2) g/dL 01/16/19 01/17/19 01/17/19 Range/Units 19:51 05:47 05:53 RBC (4.30-5.90) m/uL Hgb (13.0-17.5) gm/dL Hct (39.0-53.0) % RDW (11.5-15.5) % Plt Count (150-450) k/uL PT 13.4 H (9.0-12.0) sec INR 1.3 H (<1.2) D-Dimer (<0.60) mg/L FEU Potassium (3.5-5.1) mmol/L Carbon Dioxide (22-30) mmol/L BUN (9-20) mg/dL Creatinine (0.66-1.25) mg/dL Glucose (74-99) mg/dL POC Glucose (mg/dL) 162 H 138 H (75-99) mg/dL ALT (21-72) U/L Total Protein (6.3-8.2) g/dL 01/17/19 Range/Units 11:23 RBC (4.30-5.90) m/uL Hgb (13.0-17.5) gm/dL Hct (39.0-53.0) % RDW (11.5-15.5) % Plt Count (150-450) k/uL PT (9.0-12.0) sec INR (<1.2) D-Dimer (<0.60) mg/L FEU Potassium (3.5-5.1) mmol/L Carbon Dioxide (22-30) mmol/L BUN (9-20) mg/dL Creatinine (0.66-1.25) mg/dL Glucose (74-99) mg/dL POC Glucose (mg/dL) 169 H (75-99) mg/dL ALT (21-72) U/L Total Protein (6.3-8.2) g/dL Assessment and Plan Plan: 1. acute COPD exacerbation, with acute diastolic CHF exacerbation, consult were made with Dr. Vela and , patient is chronically on Coumadin, subtherapeutic INRs, history of DVT Coumadin will be resumed, his medications were readjusted by PCP 2 weeks ago, on the lower dose. Nuclear med intermediate probability, patient might need to be bridged with either IV heparin or Lovenox on till INR is therapeutic. IV Lasix, echocardiogram as above, IV steroids and nebulized albuterol and Atrovent and budesonide. 2. Chronic kidney disease stage III. Patient seen nephrology regular basis continue to watch his BUN/creatinine daily. 3. A. fib with pulse rates under control patient is on Betapace along with warfarin PT/INR be done daily. 4. Hypothyroidism: Has been on levothyroxine 200 g daily continue medication. 5. Hyperlipidemia: On Lipitor 10 mg daily. 6. Hypertension: Patient is not on calcium channel nicolette or SIDDHARTHA inhibitor prior to admission, unknown reason, this needs to be clarified he was on Diovan in the past, we'll going to be introduced this, 80 mg daily 7. Gout, chronic with no flareup or recurrent symptoms patient has been on Zyl oprim 100 mg daily. 8. Anticoagulation: Patient is on warfarin PT/INR be done daily. 9. Obstructive sleep apnea with CPAP at bedside. 10. History of PE and DVT. On chronic Coumadin, nontherapeutic. Lovenox. 11. GI prophylaxis: Patient will be on Pepcid 20 mg daily. CODE STATUS: Full code. Discharge plan: Home Impression and plan of care have been directed as dictated by the signing ph ysician. Sheridan Chan nurse practitioner acting as scribe for signing physician.
[2019-01-17] MEDS: methylPREDNISolone SOD SUCCI 40 MG/ML 1 ML VIAL IV SCH ×2 (16:03→23:08)
[2019-01-17 16:59] LABS: Glucose,Whole Blood 178 mg/dL (75-99)
[2019-01-17] MEDS: WARFARIN 5 MG TAB PO SCH (17:22)
--- NOTE | 2019-01-17 17:32 | P.CNPUL ---
History of Present Illness Consult date: 01/17/19 Reason for consult: dyspnea History of present illness: 88-year-old male patient very well-known to me. The patient has multiple medical positive comorbidities including COPD, chronic atrial fibrillation maintained on long-term anticoagulation, Chronic kidney disease, hypertension, hyperlipidemia, hypothyroidism, diabetes mellitus, obstructive sleep apnea maintained on CPAP therapy and previous history of pulmonary embolism and hypothyroidism hyperlipidemia and gout. The patient has a pacemaker also in place. This patient came yesterday to the MRSA problem because of worsening shortness of breath. He denied having any chest pain. No significant cough or sputum production. No major swelling in lower extremities bilaterally. Chest x-ray showed no acute abnormalities. White cell count is at 5.7. Creatinine is at 1.3 consistent with chronic stage III kidney disease. ProBNP level is 3830. Pro-calcitonin 0.04. The TSH is at 0.5. First set of troponins at 0.01, and then 0.02 and 0.02 respectively. The patient's INR was at 1.3. The patient was treated with a combination of bronchodilators. He was given IV Lasix 40 mg ev brandon 12 hours. He is also on IV Solu Medrol 40 mg every 8 hours. Much improved to the point where the patient breathing is essentially normalizing at this point in time. His EKG showing a paced rhythm. Review of Systems Comprehensive General Adult ROS Reported by Patient Constitutional Constitutional: no fever, no night sweats, no significant weight gain, no significant weight loss, diminished exercise intolerance Eyes Eyes: no dry eyes, no vision change, no irritation ENMT Ears: Has a difficulty in hearing, no ear pain Nose: no frequent nosebleeds, no nose problems, no sinus problems (nasal drainage) Mouth/Throat: no sore throat, no bleeding gums, no snoring, no dry mouth, no mouth ulcers, no oral abnormalities, no teeth problems Cardiovascular Cardiovascular: palpitations (tachycardia), and the patient is known to have chronic atrial fibrillation. Respiratory Respiratory: shortness of breath, sleep apnea, with interval worsening shortness of breath withoutsignificant cough or hemoptysis no pleurisy. Gastrointestinal Gastrointestinal: no abdominal pain, no nausea, no vomiting, no constipation, normal appetite, no diarrhea, not vomiting blood, no dyspepsia, no GERD Genitourinary Genitourinary: no incontinence, no difficulty urinating, no hematuria, no increased frequency Musculoskeletal Musculoskeletal: no muscle aches, no muscle weakness, no arthralgias/joint pain, no back pain, no swelling in the extremities Integumentary Skin: no abnormal mole, no jaundice, no rashes, no laceration Neurologic Neurologic: dizziness Psychiatric Psych: no depression, no sleep disturbances, feeling safe in a relationship, no alcohol abuse, no anxiety, no hallucinations, no suicidal thoughts Endocrine Endocrine: Chronic fatigue Hematologic/Lymphatic Hematologic/Lymphatic no swollen glands, no bruising, no excessive bleeding Past Medical History Past Medical History: Atrial Fibrillation, Coronary Artery Disease (CAD), Cancer, Deep Vein Thrombosis (DVT), Hyperlipidemia, Hypertension, Myocardial Infarction (MO), Osteoarthritis (OA), Pulmonary Embolus (PE), Renal Disease, Sleep Apnea/CPAP/BIPAP, Thyroid Disorder Additional Past Medical History / Comment(s): COPD, obstructive sleep apnea, obesity, chronic atrial fibrillation, coronary artery disease, chronic stage III kidney disease, hypothyroidism, previous history of pulmonary embolism, hypothyroidism, gout, hyperlipidemia, history of skin cancer that was resected from the right arm he think it's a melanoma, previous history of myocardial infarction in 1996. History of pacemaker insertion. Last Myocardial Infarction Date:: 1996 History of Any Multi-Drug Resistant Organisms: None Reported Past Surgical History: Coronary Bypass/CABG, Heart Catheterization, Hernia Repair, Joint Replacement, Orthopedic Surgery, Pacemaker Additional Past Surgical History / Comment(s): 1996 CABG-5 vessel, L/R total hip arthroplasties, R knee total arthroplasty with revision, skin cancer removals, colonoscopy, pacemaker 2012 while in [place], bilateral cataract removals, R writst with plates and screws, umbilical hernia repair. Past Anesthesia/Blood Transfusion Reactions: No Reported Reaction Type of Cardiac Device: Permanent Pacemaker Device Placement Date:: 2012 Past Psychological History: No Psychological Hx Reported Additional Psychological History / Comment(s): Pt resides with his spouse. He uses a cane or walker to ambulate. 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 Has traveled internationally. Including [place], [place], the [place], [place]. Has not been to [place]. Not a current smoker. No significant alcohol use or recreational drug use. No animals in the home at this time Smoking Status: Former smoker Past Alcohol Use History: Rare Additional Past Alcohol Use History / Comment(s): Pt started smoking as a teen and quit in 1967. Past Drug Use History: None Reported - Past Family History Father Family Medical History: Cancer Additional Family Medical History / Comment(s): Father of colon cancer. Mother Family Medical History: No Reported History Additional Family Medical History / Comment(s): Mother lived to be 76yrs old. Medications and Allergies Home Medications Medication Instructions Recorded Confirmed Type Allopurinol [Zyloprim] 100 mg PO HS 09/21/14 01/16/19 History Atorvastatin Calcium [Lipitor] 10 mg PO HS 09/21/14 01/16/19 History Sotalol [Betapace] 80 mg PO BID 09/21/14 01/16/19 History Warfarin [Coumadin] 2.5 mg PO SUMOWEFR 06/10/16 01/16/19 History Warfarin [Coumadin] 5 mg PO TUTHSA 06/10/16 01/16/19 History Furosemide [Lasix] 20 mg PO DAILY 01/16/19 01/16/19 History Levothyroxine Sodium [Synthroid] 200 mcg PO DAILY 01/16/19 01/16/19 History Allergies Allergy/AdvReac Type Severity Reaction Status Date / Time adhesive Allergy Unknown Verified 01/16/19 10:48 amoxicillin trihydrate Allergy Unknown Verified 01/16/19 10:48 [From Augmentin] chlorpromazine HCl Allergy Unknown Verified 01/16/19 10:48 [From Thorazine] nitroglycerin Allergy Unknown Verified 01/16/19 10:48 potassium clavulanate Allergy Unknown Verified 01/16/19 10:48 [From Augmentin] Physical Exam Vitals: Vital Signs Temp Pulse Pulse Resp BP Pulse Ox 01/17/19 16:21 72 01/17/19 16:12 68 01/17/19 16:00 20 01/17/19 15:52 98 F 60 20 139/72 97 01/17/19 12:51 72 01/17/19 12:40 72 01/17/19 11:15 95 01/17/19 11:05 98 F 67 16 137/74 88 L 01/17/19 09:26 72 01/17/19 09:09 72 01/17/19 08:00 98.3 F 60 16 139/80 91 L 01/17/19 04:00 98 F 68 69 18 150/72 95 01/17/19 03:50 78 01/17/19 02:54 62 20 01/17/19 00:15 72 01/17/19 00:04 73 01/16/19 23:27 62 20 145/79 96 01/16/19 20:43 76 01/16/19 20:32 76 01/16/19 20:00 20 01/16/19 19:56 98.2 F 59 L 20 146/72 95 01/16/19 18:00 98.3 F 72 18 149/89 89 L Intake and Output 01/17/19 01/17/19 01/17/19 06:59 14:59 22:59 Intake Total 222 Output Total 900 Balance -678 Intake: Oral 222 Output: Urine 900 Other: Voiding Method Urinal Urinal # Voids 1 3 Weight 92.2 kg 92.2 kg General Appearance no diaphoresis, no respiratory distress, speech not interrupted by breaths, no dyspnea, no pallor, not cachectic, well nourished, appears well, obesity HEENT no pursed lip breathing, no jugular venous distention, no mucous membrane cyanosis, no perioral cyanosis, mallampati classification: class 1, Mallampati Classification: Class 4 Chest no barrel chest, no retractions, no sternocleidomastoid muscle contractions, no supraclavicular retractions, no intercostal retractions, no decreased air movement, no rhonchi, no hyperinflation, decreased air movement Heart no right ventricular heave, no distant heart sounds, no s3 gallop GI bowel sounds: hyperactive (borborygmi), bowel sounds: diminished or absent Extremities no cyanosis, no clubbing, edema Neurologic no decreased mental status, no somnolence, no confusion Examination of the skin revealed no evidence of significant rashes, suspicious appearing nevi or other concerning lesions. Results - Laboratory Findings CBC and BMP: 01/16/19 11:31 01/16/19 11:31 PT/INR, D-dimer PT 13.4 sec (9.0-12.0) H 01/17/19 05:53 INR 1.3 (<1.2) H 01/17/19 05:53 D-Dimer 0.79 mg/L FEU (<0.60) H 01/16/19 11:31 Abnormal lab findings: Abnormal Labs 01/16/19 01/16/19 01/16/19 11:31 11:31 11:31 RBC 3.47 L Hgb 11.1 L Hct 34.7 L RDW 15.6 H Plt Count 131 L PT 12.5 H INR 1.2 H D-Dimer 0.79 H Potassium 5.3 H Carbon Dioxide 32 H BUN 50 H Creatinine 1.33 H Glucose 110 H POC Glucose (mg/dL) ALT 17 L Total Protein 6.1 L 01/16/19 01/17/19 01/17/19 19:51 05:47 05:53 RBC Hgb Hct RDW Plt Count PT 13.4 H INR 1.3 H D-Dimer Potassium Carbon Dioxide BUN Creatinine Glucose POC Glucose (mg/dL) 162 H 138 H ALT Total Protein 01/17/19 01/17/19 11:23 16:57 RBC Hgb Hct RDW Plt Count PT INR D-Dimer Potassium Carbon Dioxide BUN Creatinine Glucose POC Glucose (mg/dL) 169 H 178 H ALT Total Protein - Diagnostic Findings Chest x-ray: image reviewed Assessment and Plan Plan: 1 acute on chronic shortness of breath due to exacerbation of COPD/CHF, improving with treatment 2 COPD 3 coronary artery disease with previous myocardial infarction 4 chronic atrial fibrillation with a subtherapeutic PT/INR. Current rhythm is paced and the patient has a pacemaker in place 5 hypertension 6 hyperlipidemia 7 hypothyroidism 8 gout 9 obstructive sleep apnea maintained on CPAP pressure of 9 cm of water 10 remote history of pulmonary embolism and the patient has been maintained on long-term articulation with warfarin 11 osteoarthritis 12 chronic stage III kidney disease Plan Clinically improving. The patient has a preserved LV function on today's echocardiogram. There is a component of pulmonary hypertension related to chronic lung disease and obstructive sleep apnea syndrome. PA pressure is mildly elevated. Otherwise his condition is stable and the patient is responding to a combination of bronchodilators and steroids and diuretics. We'll continue to follow make further recommendations based on his progress. He states that his breathing is considerably improved and he is getting progressive ly back to his baseline. He is receiving pressure of 9 which she'll be continued. Switch this patient a prednisone burst taper within next week 4 hours. Continue bronchodilators. Continue Lasix for another 24 hours. We'll continue to follow.
[2019-01-17] MEDS ORDERED: WARFARIN 5 MG TAB PO SCH (18:00)
[2019-01-17 20:56] LABS: Glucose,Whole Blood 202 mg/dL (75-99)
[2019-01-17] MEDS: MELATONIN 5 MG TABLET PO SCH (21:12)
[2019-01-17] MEDS: PREGABALIN 75 MG CAP PO SCH (21:12)
[2019-01-17] MEDS: ATORVASTATIN 10 MG TAB PO SCH (21:12)
[2019-01-17] MEDS: ALLOPURINOL 100 MG TAB PO SCH (21:13)
[2019-01-18] MEDS: IPRATROPIUM-ALBUTEROL 3 ML NEB INHALATION SCH ×5 (03:52→20:28)
[2019-01-18 06:21] LABS: Glucose,Whole Blood 149 mg/dL (75-99)
[2019-01-18] MEDS: INSULIN ASPART (NovoLOG) 100 UNIT/ML VIAL SQ SCH ×4 (06:28→21:32)
[2019-01-18] MEDS: LEVOTHYROXINE 100 MCG TAB PO SCH (06:34)
[2019-01-18 06:57] LABS: INR 1.7 (<1.2); Prothrombin Time 17.3 sec (9.0-12.0)
[2019-01-18] MEDS: methylPREDNISolone SOD SUCCI 40 MG/ML 1 ML VIAL IV SCH ×2 (08:44→17:01)
[2019-01-18] MEDS: BUDESONIDE 0.5 MG/2 ML NEBU INHALATION SCH ×2 (08:45→20:28)
[2019-01-18] MEDS: FAMOTIDINE 20 MG TAB PO SCH (08:46)
[2019-01-18] MEDS: SOTALOL 80 MG TAB PO SCH ×2 (08:46→21:52)
[2019-01-18] MEDS: FUROSEMIDE 10 MG/ML 4 ML VIAL IV SCH (08:46)
[2019-01-18 11:58] LABS: Glucose,Whole Blood 144 mg/dL (75-99)
[2019-01-18 12:00] LABS: HCT 33.6 % (39.0-53.0); HGB 11.1 gm/dL (13.0-17.5); Hypochromasia Slight; MCH 31.8 pg (25.0-35.0); MCV 96.4 fL (80.0-100.0); Mean Platelet Volume 7.1; Platelet Count 144 k/uL (150-450); RBC 3.49 m/uL (4.30-5.90); RDW 15.2 % (11.5-15.5); WBC 5.9 k/uL (3.8-10.6)
[2019-01-18 12:12] LABS: Calcium 8.9 mg/dL (8.4-10.2); Magnesium 2.2 mg/dL (1.6-2.3); Potassium 4.5 mmol/L (3.5-5.1)
--- NOTE | 2019-01-18 13:23 | P.PN ---
Subjective Progress Note Date: 01/18/19 Principal diagnosis: Acute on chronic shortness of breath due to exacerbation of COPD/CHF 88-year-old male patient very well-known to me. The patient has multiple medical positive comorbidities including COPD, chronic atrial fibrillation maintained on long-term anticoagulation, Chronic kidney disease, hypertension, hyperlipidemia, hypothyroidism, diabetes mellitus, obstructive sleep apnea maintained on CPAP therapy and previous history of pulmonary embolism and hypothyroidism hyperlipidemia and gout. The patient has a pacemaker also in place. This patient came yesterday to the MRSA problem because of worsening shortness of breath. He denied having any chest pain. No significant cough or sputum production. No major swelling in lower extremities bilaterally. Chest x-ray showed no acute abnormalities. White cell count is at 5.7. Creatinine is at 1.3 consistent with chronic stage III kidney disease. ProBNP level is 3830. Pro-calcitonin 0.04. The TSH is at 0.5. First set of troponins at 0.01, and then 0.02 and 0.02 respectively. The patient's INR was at 1.3. The patient was treated with a combination of bronchodilators. He was given IV Lasix 40 mg temi ry 12 hours. He is also on IV Solu Medrol 40 mg every 8 hours. Much improved to the point where the patient breathing is essentially normalizing at this point in time. His EKG showing a paced rhythm. On 01/18/2019 patient is seen in follow-up on selective care unit, he is awake and alert, in no acute distress, room air pulse ox is 93%, no fever or chills, respirations are even and nonlabored, does get some exertional dyspnea, and overall no acute distress, he was able to get up in the shower today, tolerated activity fairly well. No fever or chills, no cough or congestion, today's labs have been reviewed, showing white blood cell count is 5.9, hemoglobin is 11.1, electrolytes were unremarkable with the exception of CO2 of 33 suggestive of chronic hypercapnic restaurant failure, BUN 67 and creatinine is 1.48. Echocardiogram showed EF of 50-55%. Moderate pulmonary hypertension, mild to moderate tricuspid regurgitation, patient remains on IV Solu-Medrol, nebulized bronchodilator his, and he is on oral Lasix. No acute events overnight, stable for discharge from pulmonary perspective Objective - Vital Signs Vital signs: Vital Signs Temp 98.2 F 09/27/19 11:50 Pulse 88 01/18/19 12:00 Resp 16 01/18/19 12:00 BP 116/62 01/18/19 11:50 Pulse Ox 93 L 01/18/19 11:50 Intake & Output 01/17/19 01/18/19 01/18/19 18:59 06:59 18:59 Intake Total 446 101 3790 Output Total 900 Balance -333 643 8125 Weight 92.2 kg 92.3 kg Intake: IV 30 Invasive Line 1 10 Invasive Line 2 20 Oral 969 [id number] 2595 Output: Urine 900 Other: Voiding Method Urinal Urinal Toilet Urinal # Voids 3 1 - Exam GENERAL EXAM: Alert, pleasant, 88-year-old white male, on room air comfortable in no apparent distress. HEAD: Normocephalic/atraumatic. EYES: Normal reaction of pupils, equal size. Conjunctiva pink, sclera white. NOSE: Clear with pink turbinates. THROAT: No erythema or exudates. NECK: No masses, no JVD, no thyroid enlargement, no adenopathy. CHEST: No chest wall deformity. Symmetrical expansion. LUNGS: Equal air entry with very minimal crackles at the left lower base, but no wheeze, rhonchi or dullness. CVS: Regular rate and rhythm, normal S1 and S2, no gallops, no murmurs, no rubs ABDOMEN: Soft, nontender. No hepatosplenomegaly, normal bowel sounds, no guarding or rigidity. EXTREMITIES: No clubbing, changes of chronic venous stasis and lower extremities, and trace pretibial edema, no cyanosis, 2+ pulses and upper and lower extremities. MUSCULOSKELETAL: Muscle strength and tone normal. SPINE: No scoliosis or deformity SKIN: No rashes CENTRAL NERVOUS SYSTEM: Alert and oriented -3. No focal deficits, tone is normal in all 4 extremities. PSYCHIATRIC: Alert and oriented -3. Appropriate affect. Intact judgment and insight. - Labs CBC & Chem 7: 01/18/19 06:25 01/18/19 06:25 Labs: Abnormal Lab Results - Last 24 Hours (Table) 01/17/19 01/17/19 01/18/19 Range/Units 16:57 20:50 06:18 RBC (4.30-5.90) m/uL Hgb (13.0-17.5) gm/dL Hct (39.0-53.0) % Plt Count (150-450) k/uL PT (9.0-12.0) sec INR (<1.2) Carbon Dioxide (22-30) mmol/L BUN (9-20) mg/dL Creatinine (0.66-1.25) mg/dL Glucose (74-99) mg/dL POC Glucose (mg/dL) 178 H 202 H 149 H (75-99) mg/dL 01/18/19 01/18/19 01/18/19 Range/Units 06:25 06:25 06:25 RBC 3.49 L (4.30-5.90) m/uL Hgb 11.1 L (13.0-17.5) gm/dL Hct 33.6 L (39.0-53.0) % Plt Count 144 L (150-450) k/uL PT 17.3 H (9.0-12.0) sec INR 1.7 H (<1.2) Carbon Dioxide 33 H (22-30) mmol/L BUN 67 H (9-20) mg/dL Creatinine 1.48 H (0.66-1.25) mg/dL Glucose 134 H (74-99) mg/dL POC Glucose (mg/dL) (75-99) mg/dL 01/18/19 Range/Units 11:49 RBC (4.30-5.90) m/uL Hgb (13.0-17.5) gm/dL Hct (39.0-53.0) % Plt Count (150-450) k/uL PT (9.0-12.0) sec INR (<1.2) Carbon Dioxide (22-30) mmol/L BUN (9-20) mg/dL Creatinine (0.66-1.25) mg/dL Glucose (74-99) mg/dL POC Glucose (mg/dL) 144 H (75-99) mg/dL Assessment and Plan Plan: Assessment: 1 acute on chronic shortness of breath due to exacerbation of COPD/CHF, improving with treatment 2 COPD 3 coronary artery disease with previous myocardial infarction 4 chronic atrial fibrillation with a subtherapeutic PT/INR. Current rhythm is paced and the patient has a pacemaker in place 5 hypertension 6 hyperlipidemia 7 hypothyroidism 8 gout 9 obstructive sleep apnea maintained on CPAP pressure of 9 cm of water 10 remote history of pulmonary embolism and the patient has been maintained on long-term articulation with warfarin 11 osteoarthritis 12 chronic stage III kidney disease Plan: Patient is breathing much easier, lung sounds are stable, he is maintaining stable saturations on room air, no fever or chills, no complaint of chest pain, no cough or congestion, from pulmonary perspective he stable for discharge home today. I performed a history & physical examination of the patient and discussed their management with my nurse practitioner, Flaca Stiles. I reviewed the nurse practitioner's note and agree with the documented findings and plan of care. Lung sounds are positive for diminished breath sounds. The findings and the impression was discussed with the patient. I attest to the documentation by the nurse practitioner. Time with Patient: Less than 30
--- NOTE | 2019-01-18 14:06 | P.PN ---
Subjective Progress Note Date: 01/18/19 This is a pleasant 88-year-old gentleman patient of Dr. Alfonso and Dr. Kathleen with underlying history of COPD is related to agent orange, CAD, CK D, atrial fibrillation, hypertension hyperlipidemia hypothyroidism, diabetes mellitus type 2 admitted to the hospital secondary to shortness of breath for 3 days. Patient has had dyspnea and exertion, no palpitations, no chest pain, patient denies any pleurisy, no hemoptysis. He has some productive phlegm, no myalgia, no sick contacts for influenza, denies any peripheral edema, however family has related to increasing lower leg edema. He is chronically on Coumadin for chronic anti-coagulation for A. fib his last echocardiogram was over 6 mon ths ago Patient is admitted for acute COPD exacerbation along with the onset CHF and a Dr. Addison distress syndrome, renal sufficiency elevated d-dimer, from the emergency room. He is imaging studies showed chest x-ray, evidence of increased pulmonary vascular marking clips consistent with CHF, EKG shows electronic atrial pacemaker with heart rate of 60, creatinine 1.33, INR of 1.2, WBC count 5.7, hemoglobin 11.1, creatinine 1.33. Troponin of 0.02, no anti-proBNP done 01/17: Echocardiogram reveals EF of 50-55% with mild concentric left ventricular hypertrophy, mild aortic stenosis, mild mitral regurgitation, mild to moderate tricuspid regurgitation, moderate pulmonary hypertension. VQ scan is intermediate probability for pulmonary embolus. Dr. Vela is on consult. Patient states he has occasional cough. He denies any nausea, abdominal pain. Is currently on Lasix 40 mg IV every 12 hours which will be continued. Solu- Medrol changed to 40 mg every 8 hours. Patient states he is on Lyrica at home that helps him with sleep and restless leg syndrome. Melatonin added. INR toda y is 1.3 and additional dose of Lovenox ordered. Weight is down 2 kg. TSH 0.595, pro-calcitonin normal. ProBNP 4100. Repeat troponins were 0.020 and 0.014. 01/18: Patient has been afebrile, heart rate 88, blood pressure 116/62, pulse ox 93% on room air. Hemoglobin stable at 11.1, INR 1.7. BUN 67 and creatinine 1.48. Blood sugars have been elevated secondary to steroids. Ultimately medicine has ruled out pulmonary embolism. Patient states he is feeling well today. He does complain of some lightheadedness when getting up and orthostatics will be checked. He states he is eating okay. He is complaining of dry mouth. He denies any chest pain. We will plan to decrease Lasix and transition oral and change Solu-Medrol over to prednisone starting tomorrow. Anticipate discharge home tomorrow. Objective - Vital Signs Vital signs: Vital Signs Temp 98.2 F 01/18/19 11:50 Pulse 88 01/18/19 11:50 Resp 16 01/18/19 11:50 BP 116/62 01/18/19 11:50 Pulse Ox 93 L 01/18/19 11:50 Intake & Output 01/17/19 01/18/19 01/18/19 18:59 06:59 18:59 Intake Total 222 240 390 Output Total 900 Balance -678 240 390 Weight 92.2 kg 92.3 kg Intake: IV 30 Invasive Line 1 10 Invasive Line 2 20 Oral 222 240 360 Output: Urine 900 Other: Voiding Method Urinal Urinal Toilet Urinal # Voids 3 1 - Exam Review of Systems Constitutional: Reports as per HPI, denies malaise, Reports weakness, Denies anorexia, Denies chills, Denies chronic headaches, Denies chronic pain, Denies daytime sleepiness, Denies fatigue, Denies fever, Denies lethargy, Denies night sweats, Denies poor appetite, Denies sweats, Denies weight gain, Denies weight loss Ears, nose, mouth and throat: Reports as per HPI, Denies ant. neck pain, Denies bleeding gums, Denies dental pain, Denies dysphagia, Denies epistaxis, Denies headache, Denies hoarseness, Denies mouth pain, Denies nasal congestion, Denies nasal discharge, Denies neck fullness/pressure, Denies neck lump, Denies nose pain, Denies odynophagia, Denies post-nasal drip, Denies sinus pain, Denies sinus pressure, Denies swelling in mouth, Denies swelling in throat, Denies sore throat, Denies vertigo, Denies voice changes Cardiovascular: Reports as per HPI, denies dyspnea on exertion, denies shortness of breath Respiratory: Reports as per HPI, Reports cough with sputum, Reports wheezing, Denies congestion, Denies cough, Denies dyspnea, Denies excessive sputum, Denies hemoptysis, Denies home oxygen, Denies pain, Denies pain on inspiration, Denies pleurisy, Denies respiratory infections, Denies sleep apnea, Denies snoring Gastrointestinal: Reports as per HPI Genitourinary: Reports as per HPI Musculoskeletal: Reports as per HPI, Reports muscle weakness Integumentary: Reports as per HPI Neurological: Reports as per HPI Psychiatric: Reports as per HPI Endocrine: Reports as per HPI Hematologic/Lymphatic: Reports as per HPI, Denies easy bleeding, Denies easy bruising, Denies lymphadenopathy, Denies lymphedema, Denies thrombophilia Allergic/Immunologic: Reports as per HPI, Denies allergic rhinitis, Denies anaphylaxis, Denies urticaria, Denies wheezing - Constitutional General appearance: cooperative, no acute distress, resting in chair. - EENT Eyes: anicteric sclerae, EOMI, PERRLA, dentition normal, normal appearance ENT: hard of hearing, NA/AT - Neck Neck: normal ROM - Respiratory Respiratory: bilateral: diminished, minimal wheezing, prolonged expiration, negative: CTA, prolonged inspiration - Cardiovascular Rhythm: regular Heart sounds: normal: S1, S2 Abnormal Heart Sounds: no systolic murmur, no diastolic murmur, no rub, no S3 Gallop, no S4 Gallop, no click, no other - Gastrointestinal General gastrointestinal: normal bowel sounds, soft - Integumentary Integumentary: decreased turgor, normal - Neurologic Neurologic: CNII-XII intact - Musculoskeletal Musculoskeletal: gait normal, strength equal bilaterally - Psychiatric Psychiatric: A&O x's 3, appropriate affect, intact judgment & insight - Labs CBC & Chem 7: 01/18/19 06:25 01/18/19 06:25 Labs: Abnormal Lab Results - Last 24 Hours (Table) 01/17/19 01/17/19 01/18/19 Range/Units 16:57 20:50 06:18 RBC (4.30-5.90) m/uL Hgb (13.0-17.5) gm/dL Hct (39.0-53.0) % Plt Count (150-450) k/uL PT (9.0-12.0) sec INR (<1.2) Carbon Dioxide (22-30) mmol/L BUN (9-20) mg/dL Creatinine (0.66-1.25) mg/dL Glucose (74-99) mg/dL POC Glucose (mg/dL) 178 H 202 H 149 H (75-99) mg/dL 01/18/19 01/18/19 01/18/19 Range/Units 06:25 06:25 06:25 RBC 3.49 L (4.30-5.90) m/uL Hgb 11.1 L (13.0-17.5) gm/dL Hct 33.6 L (39.0-53.0) % Plt Count 144 L (150-450) k/uL PT 17.3 H (9.0-12.0) sec INR 1.7 H (<1.2) Carbon Dioxide 33 H (22-30) mmol/L BUN 67 H (9-20) mg/dL Creatinine 1.48 H (0.66-1.25) mg/dL Glucose 134 H (74-99) mg/dL POC Glucose (mg/dL) (75-99) mg/dL 01/18/19 Range/Units 11:49 RBC (4.30-5.90) m/uL Hgb (13.0-17.5) gm/dL Hct (39.0-53.0) % Plt Count (150-450) k/uL PT (9.0-12.0) sec INR (<1.2) Carbon Dioxide (22-30) mmol/L BUN (9-20) mg/dL Creatinine (0.66-1.25) mg/dL Glucose (74-99) mg/dL POC Glucose (mg/dL) 144 H (75-99) mg/dL Assessment and Plan Plan: 1. acute COPD exacerbation, with acute diastolic CHF exacerbation, consult were made with Dr. Vela and , patient is chronically on Coumadin, subtherapeutic INRs, history of DVT Coumadin will be resumed, his medications were readjusted by PCP 2 weeks ago, on the lower dose. Nuclear med intermediate probability and acute PE ruled out by pulmonary medicine. IV Lasix to oral, echocardiogram as above, IV steroids to oral and nebulized albuterol and Atrovent and budesonide. 2. Chronic kidney disease stage III. Patient seen nephrology regular basis continue to watch his BUN/creatinine daily. 3. A. fib with pulse rates under control patient is on Betapace along with warfarin PT/INR be done daily. 4. Hypothyroidism: Has been on levothyroxine 200 g daily continue medication. 5. Hyperlipidemia: On Lipitor 10 mg daily. 6. Hypertension: Patient is not on calcium channel nicolette or SIDDHARTHA inhibitor prior to admission, unknown reason, this needs to be clarified he was on Diovan in the past, we'll going to be introduced this, 80 mg daily 7. Gout, chronic with no flareup or recurrent symptoms patient has been on Zyloprim 100 mg daily. 8. Anticoagulation: Patient is on warfarin PT/INR be done daily. 9. Obstructive sleep apnea with CPAP at bedside. 10. History of PE and DVT. On chronic Coumadin, nontherapeutic. 11. GI prophylaxis: Patient will be on Pepcid 20 mg daily. CODE STATUS: Full code. Discharge plan: Home on Monday Impression and plan of care have been directed as dictated by the signing physician. Sheridan Chan nurse practitioner acting as scribe for signing physician.
--- NOTE | 2019-01-18 14:16 | P.CRDCN ---
History of Present Illness History of present illness: This is a pleasant 88-year-old male past medical history significant for coronary artery disease status post bypass grafting, inferior wall myocardial infarction resulting in 5 vessel bypass complicated by cardiogenic shock in 1996, ischemic cardiomyopathy, permanent pacemaker implantation secondary to sick sinus syndrome, chronic persistent atrial fibrillation on long-term anticoagulation with Coumadin, hypertension, dyslipidemia, obstructive sleep apnea, COPD and chronic kidney disease. He follows in the office with Dr. Kathleen. We have been asked to see him in consultation secondary to congestive heart failure. He presented to the hospital with symptoms of exert ional shortness of breath, cough, fever/chills and lower extremity edema. He had been initiated on IV Lasix. He has diuresed quite well and states his breathing has been feeling much better since admission however not totally back to baseline. He is seen and examined sitting up in the chair in no acute distress. He denies symptoms of chest discomfort, shortness of breath at rest, dizziness or palpitations. EKG reveals paced rhythm with a right bundle branch block and inferior Q waves. Chest x-ray reveals congestive heart failure with pulmonary vascular congestion. He underwent a VQ scan that was indeterminate for pulmonary embolism with numerous mismatch defects noted bilaterally. Echocardiogram obtained reveals preserved LV systolic function with ejection fraction 50-55%, grade 2 diastolic dysfunction, mild aortic stenosis with a mean gradient of 10 mmHg, mild to moderate tricuspid regurgitation and moderate pulmonary hypertension with an RVSP of 43 mmHg. Laboratory data reviewed, WBC 5.9, hemoglobin 11.1, platelets 144, INR 1.7, sodium 139, potassium 4.5, creatinine 1.48, magnesium 2.2, proBNP 4100, cardiac enzymes negative 3. Current daily cardiac medications include sotalol 80 mg twice a day, atorvastatin 10 mg daily, Lasix 20 mg daily and Coumadin. At the time of my exam: CONSTITUTIONAL: Denies fever. Denies chills. EYES: Denies blurred vision. Denies vision changes. Denies eye pain. EARS, NOSE, MOUTH & THROAT: Denies headache. Denies sore throat. Denies ear pain. CARDIOVASCULAR: Denies chest pain. Complains of exertional shortness of breath. Denies orthopnea. Denies PND. Denies palpitations. RESPIRATORY: Denies cough. GASTROINTESTINAL: Denies abdominal pain. Denies diarrhea. Denies constipation. Denies nausea. Denies vomiting. MUSCULOSKELETAL: Denies myalgias. INTEGUMENTARY: Denies pruitis. Denies rash. NEUROLOGIC: Denies numbness. Denies tingling. Denies weakness. PSYCHIATRIC: Denies anxiety. Denies depression. ENDOCRINE: Denies fatigue. Denies weight change. Denies polydipsia. Denies polyurina. GENITOURINARY: Denies burning, hematuria or urgency with micturation. HEMATOLOGIC: Denies history of anemia. Denies bleeding. Blood pressure 116/62 heart rate 88 afebrile maintaining oxygen saturation on room air GENERAL: This is a 88-year-old male in no apparent distress at the time of my examination. HEENT: Head is atraumatic, normocephalic. Pupils are equal, round. Sclerae anicteric. Conjunctivae are clear. Mucous membranes of the mouth are moist. Neck is supple. There is no jugular venous distention. No carotid bruit is heard. LUNGS: Diminished bilaterally. No wheezes, rales or rhonchi. No chest wall tenderness is noted on palpation or with deep breathing. HEART: Irregular rate and rhythm with systolic ejection murmur at the base and left sternal border, no rubs or gallops. S1 and S2 heard. ABDOMEN: Soft, nontender. Bowel sounds are heard. No organomegaly noted. EXTREMITIES: Trace bilateral lower extremity edema and no calf tenderness noted. VASCULAR: Radial and dorsalis pedis pulses palpated, no evidence of clubbing. NEUROLOGIC: Patient is awake, alert and oriented x3. ASSESSMENT Acute on chronic diastolic heart failure, improved and transitioned to PO diuretics. History also of chronic systolic heart failure. Exacerbation of COPD Chronic atrial fibrillation on long-term anticoagulation Subtherapeutic INR Hypertension Dyslipidemia History of coronary artery disease status post bypass grafting Permanent pacemaker implantation secondary to sick sinus syndrome Chronic kidney disease PLAN Agree with oral diuretics as his breathing has improved since admission. Continue to observe for another 24 hrs. Advised him to increase activity and assess for ongoing exertional dyspnea. Change warfarin to 5 mg daily. PCP manages this as an outpatient. Follow up with Dr. Kathleen upon discharge. Thank you kindly for this consultation. Nurse Practitioner note has been reviewed, I agree with a documented findings and plan of care. Patient was seen and examined. Past Medical History Past Medical History: Atrial Fibrillation, Coronary Artery Disease (CAD), Cancer , Deep Vein Thrombosis (DVT), Hyperlipidemia, Hypertension, Myocardial Infarction ([place]), Osteoarthritis (OA), Pulmonary Embolus ([place]), Renal Disease, Sleep Apnea/CPAP/BIPAP, Thyroid Disorder Additional Past Medical History / Comment(s): COPD, obstructive sleep apnea, obesity, chronic atrial fibrillation, coronary artery disease, chronic stage III kidney disease, hypothyroidism, previous history of pulmonary embolism, hypothyroidism, gout, hyperlipidemia, history of skin cancer that was resected from the right arm he think it's a melanoma, previous history of myocardial i nfarction in 1996. History of pacemaker insertion. Last Myocardial Infarction Date:: 1996 History of Any Multi-Drug Resistant Organisms: None Reported Past Surgical History: Coronary Bypass/CABG, Heart Catheterization, Hernia Repair, Joint Replacement, Orthopedic Surgery, Pacemaker Additional Past Surgical History / Comment(s): 1996 CABG-5 vessel, L/R total hip arthroplasties, R knee total arthroplasty with revision, skin cancer removals, colonoscopy, pacemaker 2012 while in [place], bilateral cataract removals, R writst with plates and screws, umbilical hernia repair. Past Anesthesia/Blood Transfusion Reactions: No Reported Reaction Type of Cardiac Device: Permanent Pacemaker Device Placement Date:: 2012 Past Psychological History: No Psychological Hx Reported Additional Psychological History / Comment(s): Pt resides with his spouse. He uses a cane or walker to ambulate. 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 Has traveled internationally. Including [place], [place], the [place], [place]. Has not been to [place]. Not a current smoker. No significant alcohol use or recreational drug use. No animals in the home at this time Smoking Status: Former smoker Past Alcohol Use History: Rare Additional Past Alcohol Use History / Comment(s): Pt started smoking as a teen and quit in 1967. Past Drug Use History: None Reported - Past Family History Father Family Medical History: Cancer Additional Family Medical History / Comment(s): Father of colon cancer. Mother Family Medical History: No Reported History Additional Family Medical History / Comment(s): Mother lived to be 76yrs old. Medications and Allergies Home Medications Medication Instructions Recorded Confirmed Type Allopurinol [Zyloprim] 100 mg PO HS 09/21/14 01/16/19 History Atorvastatin Calcium [Lipitor] 10 mg PO HS 09/21/14 01/16/19 History Sotalol [Betapace] 80 mg PO BID 09/21/14 01/16/19 History Warfarin [Coumadin] 2.5 mg PO SUMOWEFR 06/10/16 01/16/19 History Warfarin [Coumadin] 5 mg PO TUTHSA 06/10/16 01/16/19 History Furosemide [Lasix] 20 mg PO DAILY 01/16/19 01/16/19 History Levothyroxine Sodium [Synthroid] 200 mcg PO DAILY 01/16/19 01/16/19 History Allergies Allergy/AdvReac Type Severity Reaction Status Date / Time adhesive Allergy Unknown Verified 01/16/19 10:48 amoxicillin trihydrate Allergy Unknown Verified 01/16/19 10:48 [From Augmentin] chlorpromazine HCl Allergy Unknown Verified 01/16/19 10:48 [From Thorazine] nitroglycerin Allergy Unknown Verified 01/16/19 10:48 potassium clavulanate Allergy Unknown Verified 01/16/19 10:48 [From Augmentin] Physical Exam Vitals: Vital Signs Temp Pulse Pulse Resp BP Pulse Ox 01/18/19 12:00 88 16 01/18/19 11:50 98.2 F 88 16 116/62 93 L 01/18/19 09:29 74 16 01/18/19 09:03 72 01/18/19 08:46 72 01/18/19 08:02 97.4 F L 74 16 166/85 93 L 01/18/19 04:03 71 01/18/19 04:00 98 F 67 18 126/62 95 01/18/19 03:54 60 01/18/19 03:34 68 18 01/18/19 00:19 72 01/18/19 00:08 71 01/17/19 23:38 68 18 122/58 97 01/17/19 20:51 76 01/17/19 20:30 76 01/17/19 20:00 98.2 F 66 18 117/50 96 01/17/19 19:53 60 20 01/17/19 16:21 72 01/17/19 16:12 68 01/17/19 16:00 20 01/17/19 15:52 98 F 60 20 139/72 97 Intake and Output 01/17/19 01/18/19 01/18/19 22:59 06:59 14:59 Intake Total 240 1190 Balance 240 1190 Intake: IV 30 Invasive Line 1 10 Invasive Line 2 20 Oral 240 1160 Other: Voiding Method Urinal Toilet Urinal # Voids 1 1 Weight 92.3 kg Results 01/18/19 06:25 01/18/19 06:25 Coagulation 01/18/19 Range/Units 06:25 PT 17.3 H (9.0-12.0) sec CBC 01/18/19 Range/Units 06:25 WBC 5.9 (3.8-10.6) k/uL RBC 3.49 L (4.30-5.90) m/uL Hgb 11.1 L (13.0-17.5) gm/dL Hct 33.6 L (39.0-53.0) % Plt Count 144 L (150-450) k/uL Comprehensive Metabolic Panel 01/18/19 Range/Units 06:25 Sodium 139 (137-145) mmol/L Potassium 4.5 (3.5-5.1) mmol/L Chloride 100 (98-107) mmol/L Carbon Dioxide 33 H (22-30) mmol/L BUN 67 H (9-20) mg/dL Creatinine 1.48 H (0.66-1.25) mg/dL Glucose 134 H (74-99) mg/dL Calcium 8.9 (8.4-10.2) mg/dL Current Medications Generic Name Dose Route Start Last Admin Trade Name Freq PRN Reason Stop Dose Admin Albuterol/Ipratropium 3 ml 01/16/19 16:00 01/18/19 13:07 Duoneb 0.5 Mg-3 Mg/3 Ml Soln INHALATION Not Given RT-Q4H [facility] Allopurinol 100 mg 01/16/19 21:00 01/17/19 21:13 Zyloprim PO 100 mg HS [facility]OM[facility] Administration Atorvastatin Calcium 10 mg 01/16/19 21:00 01/17/19 21:12 Lipitor PO 10 mg HS [facility] Administration Budesonide 0.5 mg 01/16/19 20:00 01/18/19 08:45 Pulmicort INHALATION 0.5 mg RT-BID [facility] Administration Famotidine 20 mg 01/18/19 09:00 01/18/19 08:46 Pepcid PO 20 mg DAILY [facility] Administration Furosemide 40 mg 01/19/19 09:00 Lasix PO DAILY [facility] Insulin Aspart 0 unit 01/17/19 07:30 01/18/19 11:53 Novolog SQ Not Given ACHS [facility] Protocol Levothyroxine Sodium 200 mcg 01/17/19 06:30 01/18/19 06:34 Synthroid PO 200 mcg DAILY@0630 [facility] Administration Melatonin 10 mg 01/17/19 21:00 01/17/19 21:12 Melatonin PO 10 mg HS [facility] Administration Methylprednisolone Sodium Succinate 40 mg 01/17/19 16:00 01/18/19 08:44 Solu-Medrol IV 01/18/19 23:59 40 mg Q8HR [facility] Administration Pregabalin 75 mg 01/17/19 21:00 01/17/19 21:12 Lyrica PO 75 mg HS [facility] Administration Sotalol HCl 80 mg 01/16/19 21:00 01/18/19 08:46 Betapace PO 80 mg BID [facility] Administration Warfarin Sodium 5 mg 01/16/19 18:00 01/17/19 17:22 Coumadin PO 5 mg [id number] [facility] Administration Warfarin Sodium 2.5 mg 01/18/19 18:00 Coumadin PO [id number] [facility] Intake and Output 01/17/19 01/18/19 01/18/19 22:59 06:59 14:59 Intake Total 240 1190 Balance 240 1190 Intake: IV 30 Invasive Line 1 10 Invasive Line 2 20 Oral 240 1160 Other: Voiding Method Urinal Toilet Urinal # Voids 1 1 Weight 92.3 kg 01/18/19 06:25 01/18/19 06:25
[2019-01-18 16:40] LABS: Glucose,Whole Blood 157 mg/dL (75-99)
[2019-01-18] MEDS ORDERED: WARFARIN 2.5 MG TAB PO SCH (18:00)
[2019-01-18] MEDS ORDERED: WARFARIN 5 MG TAB PO SCH (18:00)
[2019-01-18 20:30] LABS: Glucose,Whole Blood 264 mg/dL (75-99)
[2019-01-18] MEDS: ATORVASTATIN 10 MG TAB PO SCH (21:32)
[2019-01-18] MEDS: MELATONIN 5 MG TABLET PO SCH (21:32)
[2019-01-18] MEDS: ALLOPURINOL 100 MG TAB PO SCH (21:32)
[2019-01-18] MEDS: PREGABALIN 75 MG CAP PO SCH (21:32)
[2019-01-19] MEDS: IPRATROPIUM-ALBUTEROL 3 ML NEB INHALATION SCH ×4 (00:49→11:21)
[2019-01-19 06:22] LABS: Glucose,Whole Blood 174 mg/dL (75-99)
[2019-01-19] MEDS: LEVOTHYROXINE 100 MCG TAB PO SCH (06:44)
[2019-01-19] MEDS: INSULIN ASPART (NovoLOG) 100 UNIT/ML VIAL SQ SCH ×2 (06:44→12:12)
[2019-01-19 07:01] LABS: Prothrombin Time 19.6 sec (9.0-12.0)
[2019-01-19] MEDS: BUDESONIDE 0.5 MG/2 ML NEBU INHALATION SCH (08:21)
[2019-01-19 08:41] VITALS: RESP 16
[2019-01-19] MEDS: FAMOTIDINE 20 MG TAB PO SCH (08:46)
[2019-01-19] MEDS: SOTALOL 80 MG TAB PO SCH (08:46)
[2019-01-19] MEDS ORDERED: FUROSEMIDE 40 MG TAB PO SCH (09:00)
[2019-01-19 09:26] LABS: Calcium 8.7 mg/dL (8.4-10.2); Potassium 5.4 mmol/L (3.5-5.1)
[2019-01-19 09:51] LABS: HCT 35.8 % (39.0-53.0); HGB 11.9 gm/dL (13.0-17.5); MCH 32.2 pg (25.0-35.0); MCHC 33.2 g/dL (31.0-37.0); MCV 96.9 fL (80.0-100.0); Mean Platelet Volume 8.4; Platelet Count 146 k/uL (150-450); RDW 15.6 % (11.5-15.5); WBC 6.8 k/uL (3.8-10.6)
[2019-01-19] MEDS ORDERED: INSULIN DETEMIR (LEVEMIR) 100 UNIT/ML SYR SQ SCH (10:15)
[2019-01-19 12:12] LABS: Glucose,Whole Blood 130 mg/dL (75-99)
--- NOTE | 2019-01-19 12:17 | P.DS ---
Providers Date of admission: 01/16/19 14:37 Attending physician: Eleanor Vick Consults: 01/16/19 14:37 Consult Physician Routine Consulting Provider: Kaylan Vela Consult Reason/Comments: COPD exacerbation, CHF Do you want consulting provider notified?: Yes 01/17/19 15:17 Consult Physician Routine Consulting Provider: Navdeep Sinha Consult Reason/Comments: chf Do you want consulting provider notified?: Yes Primary care physician: Hayder Alfonso [facility] Hospital Course: This is a pleasant 88-year-old gentleman patient of Dr. Alfonso and Dr. Kathleen with underlying history of COPD is related to agent orange, CAD, CK D, atrial fibrillation, hypertension hyperlipidemia hypothyroidism, diabetes mellitus type 2 admitted to the hospital secondary to shortness of breath for 3 days. Patient has had dyspnea and exertion, no palpitations, no chest pain, patient denies any pleurisy, no hemoptysis. He has some productive phlegm, no myalgia, no sick contacts for influenza, denies any peripheral edema, however family has related to increasing lower leg edema. He is chronically on Coumadin for chronic anti-coagulation for A. fib his last echocardiogram was over 6 months ago Patient is admitted for acute COPD exacerbation along with the onset CHF and a Dr. Addison distress syndrome, renal sufficiency elevated d-dimer, from the emergency room. He is imaging studies showed chest x-ray, evidence of increased pulmonary vascular marking clips consistent with CHF, EKG shows electronic atrial pacemaker with heart rate of 60, creatinine 1.33, INR of 1.2, WBC count 5.7, hemoglobin 11.1, creatinine 1.33. Troponin of 0.02, no anti-proBNP done 01/17: Echocardiogram reveals EF of 50-55% with mild concentric left ventricular hypertrophy, mild aortic stenosis, mild mitral regurgitation, mild to moderate tricuspid regurgitation, moderate pulmonary hypertension. VQ scan is intermediate probability for pulmonary embolus. Dr. Vela is on consult. Patient states he has occasional cough. He denies any nausea, abdominal pain. Is currently on Lasix 40 mg IV every 12 hours which will be continued. Solu- Medrol changed to 40 mg every 8 hours. Patient states he is on Lyrica at home that helps him with sleep and restless leg syndrome. Melatonin added. INR today is 1.3 and additional dose of Lovenox ordered. Weight is down 2 kg. TSH 0.595, pro-calcitonin normal. ProBNP 4100. Repeat troponins were 0.020 and 0.014. 01/18: Patient has been afebrile, heart rate 88, blood pressure 116/62, pulse ox 93% on room air. Hemoglobin stable at 11.1, INR 1.7. BUN 67 and creatinine 1.4 8. Blood sugars have been elevated secondary to steroids. Ultimately medicine has ruled out pulmonary embolism. Patient states he is feeling well today. He does complain of some lightheadedness when getting up and orthostatics will be checked. He states he is eating okay. He is complaining of dry mouth. He denies any chest pain. We will plan to decrease Lasix and transition oral and change Solu-Medrol over to prednisone starting tomorrow. Anticipate discharge home tomorrow. 01/19 patient examined bedside doing well does not have any shortness of breath or cough production. On examination no wheezing or rhonchi noted. Cardiac examination shows S1-S2 present no murmurs or additional heart sounds felt. Patient will be transitioned to prednisone 40 mg by mouth for 7 days. And will be discharged on melatonin for sleep Discharge diagnoses 1. acute COPD exacerbation, with acute diastolic CHF exacerbation 2. Chronic kidney disease stage III. 3. A. fib 4. Hypothyroidism: 5. Hyperlipidemia: 6. Hypertension: 7. Gout, chronic with no flareup or recurrent symptoms 8. Anticoagulation: 9. Obstructive sleep apnea with CPAP Home with self-care CC a copy of discharge to Dr. Jimenez Patient Condition at Discharge: Fair Plan - Discharge Summary Discharge Rx Participant: No New Discharge Prescriptions: New glipiZIDE [Glucotrol] 2.5 mg PO AC-BRKFST #30 tab Pregabalin [Lyrica] 75 mg PO HS cap Melatonin 10 mg PO HS tablet predniSONE 40 mg PO DAILY #10 tab Continue Sotalol [Betapace] 80 mg PO BID Atorvastatin Calcium [Lipitor] 10 mg PO HS Allopurinol [Zyloprim] 100 mg PO HS Warfarin [Coumadin] 5 mg PO TUTHSA Warfarin [Coumadin] 2.5 mg PO SUMOWEFR Levothyroxine Sodium [Synthroid] 200 mcg PO DAILY Furosemide [Lasix] 20 mg PO DAILY Discharge Medication List Allopurinol [Zyloprim] 100 mg PO HS 09/21/14 [History] Atorvastatin Calcium [Lipitor] 10 mg PO HS 09/21/14 [History] Sotalol [Betapace] 80 mg PO BID 09/21/14 [History] Warfarin [Coumadin] 2.5 mg PO SUMOWEFR 06/10/16 [History] Warfarin [Coumadin] 5 mg PO TUTHSA 06/10/16 [History] Furosemide [Lasix] 20 mg PO DAILY 01/16/19 [History] Levothyroxine Sodium [Synthroid] 200 mcg PO DAILY 01/16/19 [History] Melatonin 10 mg PO HS tablet 01/19/19 [Rx] Pregabalin [Lyrica] 75 mg PO HS cap 01/19/19 [Rx] glipiZIDE [Glucotrol] 2.5 mg PO AC-BRKFST #30 tab 01/19/19 [Rx] predniSONE 40 mg PO DAILY #10 tab 01/19/19 [Rx] Follow up Appointment(s)/Referral(s): Hayder Alfonso DO [Primary Care Provider] - 1-2 days Discharge Disposition: HOME SELF-CARE
[2019-01-19 14:22] VITALS: BP 120/80; PULSE 72; TEMP 98.5
--- NOTE | 2019-01-19 15:47 | PN ---
PROGRESS NOTE Mr. Ba is an 88-year-old male who presented with symptoms of dyspnea and congestive heart failure. He is feeling much better this morning. He has a history of coronary artery disease, status post coronary artery bypass grafting, history of permanent pacemaker implantation as well as chronic persistent atrial fibrillation, followed by Dr. Kathleen on a regular basis. He is feeling much better this morning. His breathing is better. He denies any dizziness or palpitations. He denies any nausea. He had an echocardiogram performed during this admission that revealed an ejection fraction of 50% to 55% with mild aortic stenosis and mild to moderate tricuspid regurgitation. He continues to be at this time on Lipitor 10 mg daily, Lasix 20 mg daily, glipizide, sotalol 80 mg twice a day and Coumadin. PHYSICAL EXAMINATION: Blood pressure 135/60 with a heart rate in the 70s. LUNGS: Clear. HEART: S1, S2. No S3, with a systolic murmur. No diastolic murmur. No rub. ABDOMEN: Soft, nontender. EXTREMITIES: No edema. LAB DATA: Lab data revealed a potassium of 5.4, BUN and creatinine of 76 and 1.55. IMPRESSION: 1. Symptoms of congestive heart failure with preserved systolic function at this time, stable. 2. Status post permanent pacemaker implantation, stable. 3. Atrial fibrillation. Remains in sinus mechanism at this time, anticoagulated. 4. Chronic kidney disease. 5. Hypertension. RECOMMENDATIONS: The patient should be able to be discharged home today and followed as an outpatient by Dr. Kathleen. MMODL / IJN: [id number] /
[2019-01-20] MEDS ORDERED: FUROSEMIDE 40 MG TAB PO SCH (09:00)
== END 2019-01-19 14:39 | disposition home or self-care (01) | DRG 291 ==
LOC: EC 10:23 → 3SCARD 14:37
PROVIDERS: ADMIT Family Medicine; ATTEND Family Medicine
DX: I13.0 Hypertensive heart and chronic kidney disease with heart failure and stage 1 through stage 4 chronic kidney disease, or unspecified chronic kidney disease (principal); I50.43 Acute on chronic combined systolic (congestive) and diastolic (congestive) heart failure; J80 Acute respiratory distress syndrome; I48.1 Persistent atrial fibrillation; J44.1 Chronic obstructive pulmonary disease with (acute) exacerbation; E03.9 Hypothyroidism, unspecified; E11.22 Type 2 diabetes mellitus with diabetic chronic kidney disease; E78.5 Hyperlipidemia, unspecified; G25.81 Restless legs syndrome; G47.33 Obstructive sleep apnea (adult) (pediatric); I07.1 Rheumatic tricuspid insufficiency; I25.10 Atherosclerotic heart disease of native coronary artery without angina pectoris; I25.2 Old myocardial infarction; I25.5 Ischemic cardiomyopathy; I27.20 Pulmonary hypertension, unspecified; I45.10 Unspecified right bundle-branch block; M19.90 Unspecified osteoarthritis, unspecified site; M1A.9XX0 Chronic gout, unspecified, without tophus (tophi); N18.3 Chronic kidney disease, stage 3 (moderate); R79.1 Abnormal coagulation profile; T38.0X5A Adverse effect of glucocorticoids and synthetic analogues, initial encounter; Z79.01 Long term (current) use of anticoagulants; Z79.890 Hormone replacement therapy; Z79.899 Other long term (current) drug therapy; Z80.0 Family history of malignant neoplasm of digestive organs; Z85.820 Personal history of malignant melanoma of skin; Z86.711 Personal history of pulmonary embolism; Z86.718 Personal history of other venous thrombosis and embolism; Z87.891 Personal history of nicotine dependence; Z95.0 Presence of cardiac pacemaker; Z95.1 Presence of aortocoronary bypass graft; Z88.1 Allergy status to other antibiotic agents; Z88.8 Allergy status to other drugs, medicaments and biological substances; Z98.42 Cataract extraction status, left eye; Z98.41 Cataract extraction status, right eye; Z96.651 Presence of right artificial knee joint; Z96.643 Presence of artificial hip joint, bilateral
CPT/HCPCS: 36415; 71046; 78582; 80048; 80053; 82550; 83735; 83880; 84145; 84443; 84484; 85025; 85027; 85379; 85610; 85730; 93306; 94640; 96374; 99291

== ENCOUNTER 2019-04-16 12:58 | Inpatient (IN) | payer MEDICARE, BC ==
[2019-04-16 14:15] LABS: Basophils # (A) 0.1 k/uL (0-0.2); Basophils % (A) 2 %; Eosinophils # (A) 0.4 k/uL (0-0.7); Eosinophils % (A) 8 %; HCT 33.7 % (39.0-53.0); HGB 10.6 gm/dL (13.0-17.5); Hypochromasia Slight; Lymphocytes # (A) 1.2 k/uL (1.0-4.8); Lymphocytes % (A) 22 %; MCH 31.1 pg (25.0-35.0); MCHC 31.3 g/dL (31.0-37.0); MCV 99.2 fL (80.0-100.0); Macrocytosis Slight; Mean Platelet Volume 8.1; Monocytes # (A) 0.4 k/uL (0-1.0); Monocytes % (A) 8 %; Neutrophils # (A) 3.3 k/uL (1.3-7.7); Neutrophils % (A) 59 %; Platelet Count 156 k/uL (150-450); RDW 14.5 % (11.5-15.5); WBC 5.6 k/uL (3.8-10.6)
[2019-04-16 14:25] LABS: Albumin 3.8 g/dL (3.5-5.0); Calcium 9.2 mg/dL (8.4-10.2); Magnesium 2.8 mg/dL (1.6-2.3); Potassium 4.5 mmol/L (3.5-5.1); Total Bilirubin 0.6 mg/dL (0.2-1.3); Total Protein 6.3 g/dL (6.3-8.2)
[2019-04-16 14:28] LABS: Partial Thromboplastin Time 23.1 sec (22.0-30.0); Prothrombin Time 10.6 sec (9.0-12.0)
--- NOTE | 2019-04-16 14:45 | XR ---
EXAMINATION TYPE: XR chest 2V DATE OF EXAM: 04/16/2019 COMPARISON: 01/16/2019 HISTORY: Hypoxemia TECHNIQUE: 2 views FINDINGS: There is no heart failure nor confluent pneumonic infiltrate. There are sternal wires. Ther e is left axillary pacemaker. Bony thorax is intact. There are chest leads. There is no definite pleu ral effusion. IMPRESSION: No active cardiopulmonary disease. No change.
[2019-04-16] MEDS ORDERED: ASPIRIN 325 MG TAB PO STA (15:17)
[2019-04-16] MEDS ORDERED: FUROSEMIDE 10 MG/ML 4 ML VIAL IV STA (15:17)
[2019-04-16] MEDS ORDERED: IPRATROPIUM-ALBUTEROL 3 ML NEB INHALATION PRN (15:26)
--- NOTE | 2019-04-16 15:32 | ED ---
General Adult HPI - General Chief complaint: Shortness of Breath Stated complaint: AFib, SOB Time Seen by Provider: 04/16/19 13:14 Source: patient, RN notes reviewed, old records reviewed Mode of arrival: ambulatory Limitations: no limitations - History of Present Illness Initial comments: 88 -year-old male presenting with dyspnea, weight gain and lower extremity edema. Patient's has history of COPD and congestive heart failure. patient denies central radiating chest pain. He does have a mild cough which is at baseline. nonproductive cough. Patient denies abdominal pain or nausea vomiting. No fever or chills. He does report lower extremity edema. - Related Data Home Medications Medication Instructions Recorded Confirmed Allopurinol [Zyloprim] 100 mg PO HS 09/21/14 01/16/19 Atorvastatin Calcium [Lipitor] 10 mg PO HS 09/21/14 01/16/19 Sotalol [Betapace] 80 mg PO BID 09/21/14 01/16/19 Warfarin [Coumadin] 2.5 mg PO SUMOWEFR 06/10/16 01/16/19 Warfarin [Coumadin] 5 mg PO TUTHSA 06/10/16 01/16/19 Furosemide [Lasix] 20 mg PO DAILY 01/16/19 01/16/19 Levothyroxine Sodium [Synthroid] 200 mcg PO DAILY 01/16/19 01/16/19 Previous Rx's Medication Instructions Recorded Melatonin 10 mg PO HS tablet 01/19/19 Pregabalin [Lyrica] 75 mg PO HS cap 01/19/19 glipiZIDE [Glucotrol] 2.5 mg PO AC-BRKFST #30 tab 01/19/19 predniSONE 40 mg PO DAILY #10 tab 01/19/19 Allergies Allergy/AdvReac Type Severity Reaction Status Date / Time adhesive Allergy Unknown Verified 01/16/19 10:48 amoxicillin trihydrate Allergy Unknown Verified 01/16/19 10:48 [From Augmentin] chlorpromazine HCl Allergy Unknown Verified 01/16/19 10:48 [From Thorazine] nitroglycerin Allergy Unknown Verified 01/16/19 10:48 potassium clavulanate Allergy Unknown Verified 01/16/19 10:48 [From Augmentin] Review of Systems ROS Statement: Those systems with pertinent positive or pertinent negative responses have been documented in the HPI. ROS Other: All systems not noted in ROS Statement are negative. Past Medical History Past Medical History: Atrial Fibrillation, Coronary Artery Disease (CAD), Cancer, Deep Vein Thrombosis (DVT), Hyperlipidemia, Hypertension, Myocardial Infarction ([place]), Osteoarthritis (OA), Pulmonary Embolus (PE), Renal Disease, Sleep Apnea/CPAP/BIPAP, Thyroid Disorder Additional Past Medical History / Comment(s): COPD, obstructive sleep apnea, obesity, chronic atrial fibrillation, coronary artery disease, chronic stage III kidney disease, hypothyroidism, previous history of pulmonary embolism, hypothyroidism, gout, hyperlipidemia, history of skin cancer that was resected from the right arm he think it's a melanoma, previous history of myocardial infarction in 1996. History of pacemaker insertion. Last Myocardial Infarction Date:: 1996 History of Any Multi-Drug Resistant Organisms: None Reported Past Surgical History: Coronary Bypass/CABG, Heart Catheterization, Hernia Repair, Joint Replacement, Orthopedic Surgery, Pacemaker Additional Past Surgical History / Comment(s): 1996 CABG-5 vessel, L/R total hip arthroplasties, R knee total arthroplasty with revision, skin cancer removals, colonoscopy, pacemaker 2012 while in [place], bilateral cataract removals, R writst with plates and screws, umbilical hernia repair. Past Anesthesia/Blood Transfusion Reactions: No Reported Reaction Type of Cardiac Device: Permanent Pacemaker Device Placement Date:: 2012 Past Psychological History: No Psychological Hx Reported Smoking Status: Former smoker Past Alcohol Use History: Rare Past Drug Use History: None Reported - Past Family History Father Family Medical History: Cancer Additional Family Medical History / Comment(s): Father of colon cancer. Mother Family Medical History: No Reported History Additional Family Medical History / Comment(s): Mother lived to be 76yrs old. General Exam Limitations: no limitations Course Vital Signs 04/16/19 04/16/19 04/16/19 13:08 13:30 14:34 Temperature 98.7 F 98.9 F Pulse Rate 64 73 Respiratory 18 16 18 Rate Blood Pressure 109/57 113/53 O2 Sat by Pulse 89 L 98 Oximetry EKG Findings - EKG Comments: EKG Findings:: EKG: Atrial pacemaker, right bundle branch block, LVH, rate of 62, PA interval 110, QRS duration 122, QTC 466 Medical Decision Making - Medical Decision Making 88 -year-old male presenting with dyspnea, weight gain and lower extremity edema. Patient's has history of COPD and congestive heart failure. X-ray obtained, negative for focal pneumonia, no pearl edema. Has a hemoglobin 10.6 which is stable for this patient. He has a CO2 of 44 which is consistent with chronic CO2 retention. Creatinine is 1.35 which is at baseline. And will be admitted for treatment of both COPD and congestive heart failure exacerbation. Case discussed with the admitting physician Dr. Vick. - Lab Data Result diagrams: 04/16/19 13:32 04/16/19 13:32 Lab Results 04/16/19 04/16/19 04/16/19 Range/Units 13:32 13:32 13:32 WBC 5.6 (3.8-10.6) k/uL RBC 3.40 L (4.30-5.90) m/uL Hgb 10.6 L (13.0-17.5) gm/dL Hct 33.7 L (39.0-53.0) % MCV 99.2 (80.0-100.0) fL MCH 31.1 (25.0-35.0) pg MCHC 31.3 (31.0-37.0) g/dL RDW 14.5 (11.5-15.5) % Plt Count 156 (150-450) k/uL Neutrophils % 59 % Lymphocytes % 22 % Monocytes % 8 % Eosinophils % 8 % Basophils % 2 % Neutrophils # 3.3 (1.3-7.7) k/uL Lymphocytes # 1.2 (1.0-4.8) k/uL Monocytes # 0.4 (0-1.0) k/uL Eosinophils # 0.4 (0-0.7) k/uL Basophils # 0.1 (0-0.2) k/uL Hypochromasia Slight Macrocytosis Slight PT 10.6 (9.0-12.0) sec INR 1.0 (<1.2) APTT 23.1 (22.0-30.0) sec Sodium 141 (137-145) mmol/L Potassium 4.5 (3.5-5.1) mmol/L Chloride 90 L (98-107) mmol/L Carbon Dioxide 44 H* (22-30) mmol/L Anion Gap 7 mmol/L BUN 71 H (9-20) mg/dL Creatinine 1.35 H (0.66-1.25) mg/dL Est GFR (CKD-EPI)AfAm 54 (>60 ml/min/1.73 sqM) Est GFR (CKD-EPI)NonAf 47 (>60 ml/min/1.73 sqM) Glucose 113 H (74-99) mg/dL Calcium 9.2 (8.4-10.2) mg/dL Magnesium 2.8 H (1.6-2.3) mg/dL Total Bilirubin 0.6 (0.2-1.3) mg/dL AST 29 (17-59) U/L ALT 14 (4-49) U/L Alkaline Phosphatase 115 (38-126) U/L Troponin I (0.000-0.034) ng/mL Total Protein 6.3 (6.3-8.2) g/dL Albumin 3.8 (3.5-5.0) g/dL 04/16/19 Range/Units 13:32 WBC (3.8-10.6) k/uL RBC (4.30-5.90) m/uL Hgb (13.0-17.5) gm/dL Hct (39.0-53.0) % MCV (80.0-100.0) fL MCH (25.0-35.0) pg MCHC (31.0-37.0) g/dL RDW (11.5-15.5) % Plt Count (150-450) k/uL Neutrophils % % Lymphocytes % % Monocytes % % Eosinophils % % Basophils % % Neutrophils # (1.3-7.7) k/uL Lymphocytes # (1.0-4.8) k/uL Monocytes # (0-1.0) k/uL Eosinophils # (0-0.7) k/uL Basophils # (0-0.2) k/uL Hypochromasia Macrocytosis PT (9.0-12.0) sec INR (<1.2) APTT (22.0-30.0) sec Sodium (137-145) mmol/L Potassium (3.5-5.1) mmol/L Chloride (98-107) mmol/L Carbon Dioxide (22-30) mmol/L Anion Gap mmol/L BUN (9-20) mg/dL Creatinine (0.66-1.25) mg/dL Est GFR (CKD-EPI)AfAm (>60 ml/min/1.73 sqM) Est GFR (CKD-EPI)NonAf (>60 ml/min/1.73 sqM) Glucose (74-99) mg/dL Calcium (8.4-10.2) mg/dL Magnesium (1.6-2.3) mg/dL Total Bilirubin (0.2-1.3) mg/dL AST (17-59) U/L ALT (4-49) U/L Alkaline Phosphatase (38-126) U/L Troponin I 0.023 (0.000-0.034) ng/mL Total Protein (6.3-8.2) g/dL Albumin (3.5-5.0) g/dL Disposition Clinical Impression: Congestive heart failure, Acute exacerbation of chronic obstructive pulmonary disease Disposition: ADMITTED IP TO THIS [facility] Condition: Stable Is patient prescribed a controlled substance at d/c from ED?: No Referrals: Hayder Alfonso DO [Primary Care Provider] - 1-2 days Decision to Admit Reason: Admit from EC Decision Date: 04/16/19 Decision Time: 15:32
[2019-04-16] MEDS: IPRATROPIUM-ALBUTEROL 3 ML NEB INHALATION SCH ×2 (16:16→19:46)
[2019-04-16] MEDS ORDERED: WARFARIN 5 MG TAB PO SCH (17:30)
[2019-04-16] MEDS ORDERED: WARFARIN 3 MG TAB PO ONE (18:00)
[2019-04-16] MEDS: BUDESONIDE 0.5 MG/2 ML NEBU INHALATION SCH (19:46)
[2019-04-16 20:20] LABS: ABG Base Excess 25.1 mmol/L; ABG Oxygen Saturation 98.8 % (94-97); ABG PCO2 64 mmHg (35-45); ABG PH 7.49 (7.35-7.45); ABG PO2 120 mmHg (83-108); ABG TCO2 51 mmol/L (19-24); Allen Test Performed? Yes
[2019-04-16 20:28] LABS: ABG HCO3 49 mmol/L (21-25)
[2019-04-16] MEDS ORDERED: FUROSEMIDE 10 MG/ML 4 ML VIAL IV SCH (21:00)
[2019-04-16] MEDS: MELATONIN 5 MG TABLET PO SCH (21:04)
[2019-04-16] MEDS: ALLOPURINOL 100 MG TAB PO SCH (21:04)
[2019-04-16] MEDS: SOTALOL 80 MG TAB PO SCH (21:04)
[2019-04-16] MEDS: ATORVASTATIN 10 MG TAB PO SCH (21:04)
[2019-04-16] MEDS: acetaZOLAMIDE 250 MG TAB PO SCH (23:30)
[2019-04-17] MEDS: LEVOTHYROXINE 100 MCG TAB PO SCH (05:43)
[2019-04-17 07:24] LABS: Basophils % (A) 1 %; Eosinophils # (A) 0.5 k/uL (0-0.7); Eosinophils % (A) 12 %; HCT 28.9 % (39.0-53.0); HGB 9.2 gm/dL (13.0-17.5); Hypochromasia Moderate; Lymphocytes # (A) 1.1 k/uL (1.0-4.8); Lymphocytes % (A) 26 %; MCH 32.1 pg (25.0-35.0); MCHC 31.8 g/dL (31.0-37.0); MCV 100.8 fL (80.0-100.0); Macrocytosis Slight; Monocytes # (A) 0.4 k/uL (0-1.0); Monocytes % (A) 9 %; Neutrophils # (A) 2.2 k/uL (1.3-7.7); Neutrophils % (A) 51 %; Platelet Count 131 k/uL (150-450); RBC 2.87 m/uL (4.30-5.90); RDW 14.4 % (11.5-15.5); WBC 4.3 k/uL (3.8-10.6)
[2019-04-17 07:45] LABS: INR 1.1 (<1.2); Prothrombin Time 11.1 sec (9.0-12.0)
[2019-04-17 07:48] LABS: Albumin 3.3 g/dL (3.5-5.0); Total Bilirubin 0.5 mg/dL (0.2-1.3); Total Protein 5.6 g/dL (6.3-8.2)
[2019-04-17] MEDS: IPRATROPIUM-ALBUTEROL 3 ML NEB INHALATION SCH ×4 (08:07→19:33)
[2019-04-17] MEDS: BUDESONIDE 0.5 MG/2 ML NEBU INHALATION SCH ×2 (08:07→19:33)
[2019-04-17] MEDS: acetaZOLAMIDE 250 MG TAB PO SCH ×2 (08:52→21:41)
[2019-04-17] MEDS: SOTALOL 80 MG TAB PO SCH ×2 (08:52→21:41)
[2019-04-17] MEDS: predniSONE 20 MG TAB PO SCH (08:53)
[2019-04-17 11:22] VITALS: BMI 33.6
--- NOTE | 2019-04-17 11:54 | P.CNPUL ---
History of Present Illness Consult date: 04/17/19 Requesting physician: Eleanor Vick Reason for consult: dyspnea Chief complaint: Palpitations, shortness of breath, lower extremity edema History of present illness: This is a very pleasant 88-year-old gentleman with a known history of hyperlipidemia, atrial fibrillation anticoagulated with warfarin, hypothyroidism, congestive heart failure, gout, DVT/PE, coronary artery disease with previous coronary artery bypass grafting, osteoarthritis with multiple orthopedic surgeries, permanent pacemaker implantation, former smoker, COPD. He follows with Dr. Crowe in our office. He presented here yesterday with complaints of shortness of breath, palpitations, lower extremity edema. chest x- ray showed no acute cardiopulmonary process. arterial blood gases revealed a pO2 of 120, pCO2 64, pH 7.49 on 32% FiO2. Sodium 140. Potassium 4.0. Bicarb 45. Creatinine 1.63. White count 4.3. Hemoglobin 9.2. previous echocardiogram revealed preserved left ventricular systolic function with ejection fraction 50- 55%. Troponin 0.0-3. ProBNP 3660. The patient is seen in consultation on the regular medical floor. He is currently sitting up at the bedside having breakfast. Awake and alert in no acute distress. No worsening shortness of breath, cough or congestion. No chest pain or palpitations. He had been initiated on bronchodilators, prednisone, Diamox for metabolic alkalosis. Review of Systems REVIEW OF SYSTEMS: CONSTITUTIONAL: Denies any recent significant weight loss or weight gain. EYES: Denies change in vision. EARS, NOSE, MOUTH, THROAT: Denies headaches, denies sore throat. CARDIOVASCULAR: Denies chest pain, positive for palpitations no syncopal episode s. RESPIRATORY: Positive for shortness of breath, cough, congestion no hemoptysis. GASTROINTESTINAL: Denies change in appetite, denies abdominal pain GENITOURINARY: Denies hematuria, denies infections. MUSKULOSKELETAL: Denies pain, positive for swelling. INTEGUMENTARY: Denies rash, denies eczema. NEUROLOGICAL: Denies recent memory loss, no recent seizure activity. PSYCHIATRIC: Denies anxiety, denies depression. HEMATOLOGIC/LYMPHATIC: Denies anemia, denies enlarged lymph nodes. Past Medical History Past Medical History: Atrial Fibrillation, Coronary Artery Disease (CAD), Cancer, Deep Vein Thrombosis (DVT), Hyperlipidemia, Hypertension, Myocardial Infarction ([place]), Osteoarthritis (OA), Pulmonary Embolus (PE), Renal Disease, Sleep Apnea/CPAP/BIPAP, Thyroid Disorder Additional Past Medical History / Comment(s): COPD, obstructive sleep apnea, obesity, chronic atrial fibrillation, coronary artery disease, chronic stage III kidney disease, hypothyroidism, previous history of pulmonary embolism, hypothyroidism, gout, hyperlipidemia, history of skin cancer that was resected from the right arm he think it's a melanoma, previous history of myocardial infarction in 1996. History of pacemaker insertion. Last Myocardial Infarction Date:: 1996 History of Any Multi-Drug Resistant Organisms: None Reported Past Surgical History: Coronary Bypass/CABG, Heart Catheterization, Hernia Repair, Joint Replacement, Orthopedic Surgery, Pacemaker Additional Past Surgical History / Comment(s): 1996 CABG-5 vessel, L/R total hip arthroplasties, R knee total arthroplasty with revision, skin cancer removals, colonoscopy, pacemaker 2012 while in [place], bilateral cataract removals, R writst with plates and screws, umbilical hernia repair. Past Anesthesia/Blood Transfusion Reactions: No Reported Reaction Type of Cardiac Device: Permanent Pacemaker Device Placement Date:: 2012 Past Psychological History: No Psychological Hx Reported Smoking Status: Former smoker Past Alcohol Use History: Rare Past Drug Use History: None Reported - Past Family History Father Family Medical History: Cancer Additional Family Medical History / Comment(s): Father of colon cancer. Mother Family Medical History: No Reported History Additional Family Medical History / Comment(s): Mother lived to be 76yrs old. Medications and Allergies Home Medications Medication Instructions Recorded Confirmed Type Allopurinol [Zyloprim] 100 mg PO HS 09/21/14 04/16/19 History Atorvastatin Calcium [Lipitor] 10 mg PO HS 09/21/14 04/16/19 History Sotalol [Betapace] 80 mg PO BID 09/21/14 04/16/19 History Warfarin [Coumadin] 2.5 mg PO SUMOWEFR 06/10/16 04/16/19 History Warfarin [Coumadin] 5 mg PO TUTHSA 06/10/16 04/16/19 History Levothyroxine Sodium [Synthroid] 200 mcg PO DAILY 01/16/19 04/16/19 History Aspirin EC [Ecotrin Low Dose] 81 mg PO DAILY 04/16/19 04/16/19 History Furosemide [Lasix] 80 mg PO BID 04/16/19 04/16/19 History Allergies Allergy/AdvReac Type Severity Reaction Status Date / Time adhesive Allergy Unknown Verified 04/16/19 16:26 amoxicillin trihydrate Allergy Unknown Verified 04/16/19 16:26 [From Augmentin] chlorpromazine HCl Allergy Unknown Verified 04/16/19 16:26 [From Thorazine] nitroglycerin Allergy Unknown Verified 04/16/19 16:26 potassium clavulanate Allergy Unknown Verified 04/16/19 16:26 [From Augmentin] Physical Exam Vitals: Vital Signs Temp Pulse Pulse Resp BP BP Pulse Ox 04/17/19 11:16 92 04/17/19 11:04 92 04/17/19 08:20 90 04/17/19 08:07 88 04/17/19 04:45 97.3 F L 61 20 145/65 99 04/16/19 21:30 97.6 F 20 126/56 98 04/16/19 20:01 87 04/16/19 19:47 84 89 L 04/16/19 17:35 97.7 F 70 18 153/75 93 L 04/16/19 16:27 80 04/16/19 16:17 89 04/16/19 15:44 96.6 F L 60 24 129/63 100 04/16/19 14:34 18 04/16/19 13:30 98.9 F 73 16 113/53 98 04/16/19 13:08 98.7 F 64 18 109/57 89 L Intake and Output 04/16/19 04/17/19 04/17/19 22:59 06:59 14:59 Intake Total 300 100 Output Total 250 Balance 50 100 Intake: Oral 300 100 Output: Urine 250 Other: # Voids 2 2 Weight 95.254 kg 91.626 kg 91.626 kg GENERAL EXAM: Alert, very pleasant 88-year-old gentleman,on 2 L nasal cannula, active, comfortable in no apparent distress. HEAD: Normocephalic. EYES: Normal reaction of pupils, equal size. NOSE: Clear with pink turbinates. THROAT: No erythema or exudates. NECK: No masses, no JVD. CHEST: No chest wall deformity. LUNGS: Equal air entry with no crackles, wheeze, rhonchi or dullness. diminished. CVS: S1 and S2 normal with no audible murmur, regular rhythm, paced. ABDOMEN: No hepatosplenomegaly, normal bowel sounds, no guarding or rigidity. SPINE: No scoliosis or deformity SKIN: No rashes CENTRAL NERVOUS SYSTEM: No focal deficits, tone is normal in all 4 extremities. EXTREMITIES: There is trace peripheral edema. No clubbing, no cyanosis. Peripheral pulses are intact. Results - Laboratory Findings CBC and BMP: 04/17/19 06:51 04/17/19 06:51 ABG ABG pH 7.49 (7.35-7.45) H 04/16/19 20:15 ABG pCO2 64 mmHg (35-45) H 04/16/19 20:15 ABG pO2 120 mmHg (83-108) H 04/16/19 20:15 ABG O2 Saturation 98.8 % (94-97) H 04/16/19 20:15 PT/INR, D-dimer PT 11.1 sec (9.0-12.0) 04/17/19 06:51 INR 1.1 (<1.2) 04/17/19 06:51 D-Dimer 1.08 mg/L FEU (<0.60) H 04/16/19 17:23 Abnormal lab findings: Abnormal Labs 04/16/19 04/16/19 04/16/19 13:32 13:32 17:23 RBC 3.40 L Hgb 10.6 L Hct 33.7 L MCV Plt Count D-Dimer 1.08 H ABG pH ABG pCO2 ABG pO2 ABG HCO3 ABG Total CO2 ABG O2 Saturation Chloride 90 L Carbon Dioxide 44 H* BUN 71 H Creatinine 1.35 H Glucose 113 H Magnesium 2.8 H Total Protein Albumin 04/16/19 04/17/19 04/17/19 20:15 06:51 06:51 RBC 2.87 L Hgb 9.2 L Hct 28.9 L MCV 100.8 H Plt Count 131 L D-Dimer ABG pH 7.49 H ABG pCO2 64 H ABG pO2 120 H ABG HCO3 49 H* ABG Total CO2 51 H ABG O2 Saturation 98.8 H Chloride 92 L Carbon Dioxide 45 H* BUN 62 H Creatinine 1.63 H Glucose 111 H Magnesium Total Protein 5.6 L Albumin 3.3 L - Diagnostic Findings Chest x-ray: image reviewed (no acute pulmonary process.) Assessment and Plan Assessment: 1 acute on chronic shortness of breath due to exacerbation of COPD/diastolic CHF, improving with treatment 2 COPD, oxygen dependent 3 coronary artery disease with previous myocardial infarction 4 chronic atrial fibrillation with a subtherapeutic PT/INR. Current rhythm is paced and the patient has a pacemaker in place 5 hypertension 6 hyperlipidemia 7 hypothyroidism 8 gout 9 obstructive sleep apnea maintained on CPAP pressure of 9 cm of water 10 remote history of pulmonary embolism and the patient has been maintained on long-term articulation with warfarin 11 osteoarthritis 12 chronic stage III kidney disease Plan The patient was seen and evaluated by Dr. Arazte, chest x-ray and labs reviewed, we'll continue with the current treatment plan. The patient has mild exacerbation of COPD and diastolic congestive heart failure. He also has a metabolic alkalosis and was initiated on Diamox. Hold diuretics. Increase his activity as tolerated. We'll continue to follow. I, the cosigning physician, performed a history & physical examination of the patient. Lungs sounds are clear, diminished. Maintaining good O2 saturations in the 90s on 2 L/m per nasal cannula. I discussed the assessment and plan of care with my nurse practitioner, Shira Faith. I attest to the above consultation as dictated by her. Time with Patient: Greater than 30
--- NOTE | 2019-04-17 14:59 | P.HPIM ---
History of Present Illness H&P Date: 04/16/19 Chief Complaint: Shortness of breath This is a pleasant 88-year-old gentleman patient of Dr. Alfonso , dr Kathleen He has underlying history of COPD is related to agent orange, CAD, CK D, atrial fibrillation, hypertension hyperlipidemia hypothyroidism, diabetes mellitus type 2 admitted to the hospital secondary to shortness of breath few days, with weight gain, lower extremity edema, nonproductive cough Patient has had dyspnea and exertion, no palpitations, no chest pain, patient denies any pleurisy, no hemoptysis. , no myalgia, no sick contacts for influenza, He is chronically on Coumadin for chronic anti-coagulation for A. 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 He also has metabolic alkalosis, ABGs are requested Review of Systems Constitutional: Reports as per HPI, Reports weight gain, Denies anorexia, Denies chills, Denies chronic headaches, Denies chronic pain, Denies daytime sleepin ess, Denies fatigue, Denies fever, Denies lethargy, Denies malaise, Denies night sweats, Denies poor appetite, Denies sweats, Denies weakness, Denies weight loss Ears, nose, mouth and throat: Reports as per HPI Cardiovascular: Reports shortness of breath Respiratory: Reports as per HPI, Reports cough, Reports dyspnea Gastrointestinal: Reports as per HPI, Denies abdominal pain, Denies belching, Denies bloating, Denies BRBPR, Denies change in bowel habits, Denies coffee ground emesis, Denies constipation, Denies diarrhea, Denies dyspepsia, Denies early satiety, Denies excessive gas, Denies heartburn, Denies hematemesis, Denies hematochezia, Denies indigestion, Denies jaundice, Denies lactose i ntolerance, Denies loss of appetite, Denies melena, Denies nausea, Denies vomiting Genitourinary: Reports as per HPI Musculoskeletal: Reports as per HPI Integumentary: Reports as per HPI, Denies acne, Denies boils, Denies brittle nails, Denies change in hair/nails, Denies color changes, Denies darkening of skin, Denies depigmentation, Denies dryness, Denies foot/leg ulcers, Denies growths, Denies hirsutism, Denies lesions, Denies onychomycosis, Denies pruritus, Denies rash, Denies sores, Denies striae, Denies unusual bruising, Denies wounds Neurological: Reports as per HPI Psychiatric: Reports as per HPI Endocrine: Reports as per HPI Hematologic/Lymphatic: Reports as per HPI, Denies easy bleeding, Denies easy bruising, Denies lymphadenopathy, Denies lymphedema, Denies thrombophilia Allergic/Immunologic: Reports as per HPI, Denies allergic rhinitis, Denies anaphylaxis, Denies angioedema, Denies gluten intolerance, Denies persistent infections, Denies seasonal allergies, Denies urticaria, Denies wheezing Past Medical History Past Medical History: Atrial Fibrillation, Coronary Artery Disease (CAD), Cancer, Deep Vein Thrombosis (DVT), Hyperlipidemia, Hypertension, Myocardial Infarction (DE), Osteoarthritis (OA), Pulmonary Embolus (PE), Renal Disease, Sleep Apnea/CPAP/BIPAP, Thyroid Disorder Additional Past Medical History / Comment(s): COPD, obstructive sleep apnea, obesity, chronic atrial fibrillation, coronary artery disease, chronic stage III kidney disease, hypothyroidism, previous history of pulmonary embolism, hypothyroidism, gout, hyperlipidemia, history of skin cancer that was resected from the right arm he think it's a melanoma, previous history of myocardial infarction in 1996. History of pacemaker insertion. Last Myocardial Infarction Date:: 1996 History of Any Multi-Drug Resistant Organisms: None Reported Past Surgical History: Coronary Bypass/CABG, Heart Catheterization, Hernia Repair, Joint Replacement, Orthopedic Surgery, Pacemaker Additional Past Surgical History / Comment(s): 1996 CABG-5 vessel, L/R total hip arthroplasties, R knee total arthroplasty with revision, skin cancer removals, colonoscopy, pacemaker 2012 while in [place], bilateral cataract removals, R writst with plates and screws, umbilical hernia repair. Past Anesthesia/Blood Transfusion Reactions: No Reported Reaction Type of Cardiac Device: Permanent Pacemaker Device Placement Date:: 2012 Past Psychological History: No Psychological Hx Reported Smoking Status: Former smoker Past Alcohol Use History: Rare Past Drug Use History: None Reported - Past Family History Father Family Medical History: Cancer Additional Family Medical History / Comment(s): Father of colon cancer. Mother Family Medical History: No Reported History Additional Family Medical History / Comment(s): Mother lived to be 76yrs old. Medications and Allergies Home Medications Medication Instructions Recorded Confirmed Type Allopurinol [Zyloprim] 100 mg PO HS 09/21/14 04/16/19 History Atorvastatin Calcium [Lipitor] 10 mg PO HS 09/21/14 04/16/19 History Sotalol [Betapace] 80 mg PO BID 09/21/14 04/16/19 History Warfarin [Coumadin] 2.5 mg PO SUMOWEFR 06/10/16 04/16/19 History Warfarin [Coumadin] 5 mg PO TUTHSA 06/10/16 04/16/19 History Levothyroxine Sodium [Synthroid] 200 mcg PO DAILY 01/16/19 04/16/19 History Aspirin EC [Ecotrin Low Dose] 81 mg PO DAILY 04/16/19 04/16/19 History Furosemide [Lasix] 80 mg PO BID 04/16/19 04/16/19 History Allergies Allergy/AdvReac Type Severity Reaction Status Date / Time adhesive Allergy Unknown Verified 04/16/19 16:26 amoxicillin trihydrate Allergy Unknown Verified 04/16/19 16:26 [From Augmentin] chlorpromazine HCl Allergy Unknown Verified 04/16/19 16:26 [From Thorazine] nitroglycerin Allergy Unknown Verified 04/16/19 16:26 potassium clavulanate Allergy Unknown Verified 04/16/19 16:26 [From Augmentin] Physical Exam Vitals: Vital Signs Temp Pulse Resp BP Pulse Ox 04/16/19 16:27 80 04/16/19 16:17 89 04/16/19 15:44 96.6 F L 60 24 129/63 100 04/16/19 14:34 18 04/16/19 13:30 98.9 F 73 16 113/53 98 04/16/19 13:08 98.7 F 64 18 109/57 89 L Intake and Output 04/16/19 04/16/19 04/16/19 06:59 14:59 22:59 Output Total 250 Balance -250 Output: Urine 250 Other: # Voids 1 Weight 95.254 kg - Constitutional General appearance: cooperative, no acute distress - EENT Eyes: anicteric sclerae, EOMI, PERRLA ENT: NA/AT, normal oropharynx - Neck Neck: normal ROM - Respiratory Respiratory: bilateral: CTA, negative: diminished, dullness, rales - Cardiovascular Rhythm: regular (Paced rhythm on EKG) Heart sounds: normal: S1, S2 - Integumentary Integumentary: decreased turgor, normal - Neurologic Neurologic: CNII-XII intact - Musculoskeletal Musculoskeletal: gait normal, strength equal bilaterally - Psychiatric Psychiatric: A&O x's 3, appropriate affect Results CBC & Chem 7: 04/17/19 06:51 04/17/19 06:51 Labs: Abnormal Lab Results - Last 24 Hours (Table) 04/16/19 04/16/19 Range/Units 13:32 13:32 RBC 3.40 L (4.30-5.90) m/uL Hgb 10.6 L (13.0-17.5) gm/dL Hct 33.7 L (39.0-53.0) % Chloride 90 L (98-107) mmol/L Carbon Dioxide 44 H* (22-30) mmol/L BUN 71 H (9-20) mg/dL Creatinine 1.35 H (0.66-1.25) mg/dL Glucose 113 H (74-99) mg/dL Magnesium 2.8 H (1.6-2.3) mg/dL Laboratory Results WBC 5.6 k/uL (3.8-10.6) 04/16/19 13:32 RBC 3.40 m/uL (4.30-5.90) L 04/16/19 13:32 Hgb 10.6 gm/dL (13.0-17.5) L 04/16/19 13:32 Hct 33.7 % (39.0-53.0) L 04/16/19 13:32 MCV 99.2 fL (80.0-100.0) 04/16/19 13:32 MCH 31.1 pg (25.0-35.0) 04/16/19 13:32 MCHC 31.3 g/dL (31.0-37.0) 04/16/19 13:32 RDW 14.5 % (11.5-15.5) 04/16/19 13:32 Plt Count 156 k/uL (150-450) 04/16/19 13:32 Neutrophils % 59 % 04/16/19 13:32 Lymphocytes % 22 % 04/16/19 13:32 Monocytes % 8 % 04/16/19 13:32 Eosinophils % 8 % 04/16/19 13:32 Basophils % 2 % 04/16/19 13:32 Neutrophils # 3.3 k/uL (1.3-7.7) 04/16/19 13:32 Lymphocytes # 1.2 k/uL (1.0-4.8) 04/16/19 13:32 Monocytes # 0.4 k/uL (0-1.0) 04/16/19 13:32 Eosinophils # 0.4 k/uL (0-0.7) 04/16/19 13:32 Basophils # 0.1 k/uL (0-0.2) 04/16/19 13:32 Hypochromasia Slight 04/16/19 13:32 Macrocytosis Slight 04/16/19 13:32 PT 10.6 sec (9.0-12.0) 04/16/19 13:32 INR 1.0 (<1.2) 04/16/19 13:32 APTT 23.1 sec (22.0-30.0) 04/16/19 13:32 Sodium 141 mmol/L (137-145) 04/16/19 13:32 Potassium 4.5 mmol/L (3.5-5.1) 04/16/19 13:32 Chloride 90 mmol/L (98-107) L 04/16/19 13:32 Carbon Dioxide 44 mmol/L (22-30) H* 04/16/19 13:32 Anion Gap 7 mmol/L 04/16/19 13:32 BUN 71 mg/dL (9-20) H 04/16/19 13:32 Creatinine 1.35 mg/dL (0.66-1.25) H 04/16/19 13:32 Est GFR (CKD-EPI)AfAm 54 (>60 ml/min/1.73 sqM) 04/16/19 13:32 Est GFR (CKD-EPI)NonAf 47 (>60 ml/min/1.73 sqM) 04/16/19 13:32 Glucose 113 mg/dL (74-99) H 04/16/19 13:32 Calcium 9.2 mg/dL (8.4-10.2) 04/16/19 13:32 Magnesium 2.8 mg/dL (1.6-2.3) H 04/16/19 13:32 Total Bilirubin 0.6 mg/dL (0.2-1.3) 04/16/19 13:32 AST 29 U/L (17-59) 04/16/19 13:32 ALT 14 U/L (4-49) 04/16/19 13:32 Alkaline Phosphatase 115 U/L (38-126) 04/16/19 13:32 Troponin I 0.023 ng/mL (0.000-0.034) 04/16/19 13:32 Total Protein 6.3 g/dL (6.3-8.2) 04/16/19 13:32 Albumin 3.8 g/dL (3.5-5.0) 04/16/19 13:32 Assessment and Plan Plan: 1. Shortness of breath with acute diastolic CHF exacerbation, chest x-ray does not show fluid overload, anti-proBNP to be done, and , patient is chronically on Coumadin, history of subtherapeutic INRs on admission, history of DVT Coumadin will be resumed,, echocardiogram, IV Lasix 40 mg every 8 hours echocardiogram performed shows EF 5055% and mild concentric LVH and moderate pulmonary hypertension mild MR and moderate TR mild aortic stenosis without AR, right ventricle systolic pressure 43, 2. COPD, with coexistent exacerbation during this admission, pulmonary to see the patient, has underlying hypercarbia budesonide 0.5 mg twice a day ABGs to be done, consult with pulmonary 3. New Hypercarbia, hypercarbic respiratory failure / or metabolic alkalosis, possibly secondary to pre-existing diuretics, obstructive sleep apnea is suspected, ABGs to be done, consult with pulmonary, might need BiPAP treatments his machine is broken at home 4. Sleep apnea on CPAP at home, machine was broken for the past 2 weeks that can aggravate hypercarbia, family's advice to get this fixed 4.. Chronic kidney disease: With stage III CK-MB has been seen nephrology regular basis as outpatient continue to watch his BUN/creatinine daily. 5. A. fib with pulse rates under control patient is on Betapace along with warfarin PT/INR be done daily. 6. hypothyroidism: Has been on levothyroxine 200 g daily continue medication. 1. hyperlipidemia: On Lipitor 10 mg daily. 8. hypertension: Patient is not on calcium channel nicolette or SIDDHARTHA inhibitor prior to admission, unknown reason, this needs to be clarified he was on Diovan in the past, we'll going to be introduced this, 80 mg daily 9 gout with no flareup or recurrent symptoms patient has been on Zyloprim 100 mg daily. 10. Pulmonary hypertension secondary to chronic lung disease and obstructive sleep apnea syndrome has hypercarbia, ABGs to be done, consult with pulmonary, might need BiPAP 11. Anticoagulation: Patient is on warfarin PT/INR be done daily. Suspect noncompliance subtherapeutic on ER eval patient Coumadin dose titrate thereafter 11 GI prophylaxis: Patient will be on Pepcid 20 mg daily. CODE STATUS: Full code. Expectation from this admission: Patient be in the hospital for more than 2 nights. Rather than observation
--- NOTE | 2019-04-17 15:01 | P.PN ---
Subjective Progress Note Date: 04/17/19 This is a pleasant 88-year-old gentleman patient of Dr. Alfonso , dr Kathleen He has underlying history of COPD is related to agent orange, CAD, CK D, atrial fibrillation, hypertension hyperlipidemia hypothyroidism, diabetes mellitus type 2 admitted to the hospital secondary to shortness of breath few days, with weight gain, lower extremity edema, nonproductive cough Patient has had dyspnea and exertion, no palpitations, no chest pain, patient denies any pleurisy, no hemoptysis. , no myalgia, no sick contacts for influenza, He is chronically on Coumadin for chronic anti-coagulation for A. 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 He also has metabolic alkalosis, 04/17: Patient's edema is improved, less shortness of breath, however he still lays down on a 60 position, hospital bed, ABGs are requested for which Diamox has been initiated by pulmonary, oral prednisone started his BiPAP machine needs to be fixed at home, but pressure is stable, O2 99% on room air, no fever heart rate in the 90s, no aspiration, appetite is normal, no diarrhea, patient continues to improve, anticipate discharge in the next 24 hours once cle[facility] specialist 3 mg Coumadin to be given today, patient received 6 mg Coumadin yesterday. INR still subtherapeutic, currently adjusting dose PROCALCITONIN levels to be done, patient has minimal cough with light yellow sputum currently not on antibiotic currently off IV Lasix, and oral Lasix, on acetazolamide, to 250 mg twice a day, getting up 1.63 from a 1.35 value Objective - Vital Signs Vital signs: Vital Signs Temp 98.0 F 04/17/19 12:37 Pulse 65 04/17/19 12:37 Resp 16 04/17/19 12:37 BP 134/68 04/17/19 12:37 Pulse Ox 99 04/17/19 12:37 Intake & Output 04/16/19 04/17/19 04/17/19 18:59 06:59 18:59 Intake Total 400 540 Output Total 250 Balance -250 400 540 Weight 95.254 kg 91.626 kg 91.626 kg Intake: Oral 400 540 Output: Urine 250 Other: # Voids 1 2 2 - Constitutional General appearance: Present: cooperative, no acute distress, obese - EENT Eyes: Present: anicteric sclerae, EOMI, PERRLA ENT: Present: NA/AT, normal oropharynx - Neck Neck: Present: normal ROM - Respiratory Respiratory: right: rales, bilateral: CTA, negative: rhonchi, wheezing - Cardiovascular Rhythm: regular Heart sounds: normal: S1, S2 - Gastrointestinal General gastrointestinal: Present: normal bowel sounds, soft - Integumentary Integumentary: Present: normal, normal turgor - Neurologic Neurologic: Present: CNII-XII intact, focal deficits - Musculoskeletal Musculoskeletal: Present: gait normal, strength equal bilaterally - Psychiatric Psychiatric: Present: A&O x's 3, appropriate affect - Labs CBC & Chem 7: 04/17/19 06:51 04/17/19 06:51 Labs: Abnormal Lab Results - Last 24 Hours (Table) 04/16/19 04/16/19 04/17/19 Range/Units 17:23 20:15 06:51 RBC 2.87 L (4.30-5.90) m/uL Hgb 9.2 L (13.0-17.5) gm/dL Hct 28.9 L (39.0-53.0) % MCV 100.8 H (80.0-100.0) fL Plt Count 131 L (150-450) k/uL D-Dimer 1.08 H (<0.60) mg/L FEU ABG pH 7.49 H (7.35-7.45) ABG pCO2 64 H (35-45) mmHg ABG pO2 120 H (83-108) mmHg ABG HCO3 49 H* (21-25) mmol/L ABG Total CO2 51 H (19-24) mmol/L ABG O2 Saturation 98.8 H (94-97) % Chloride (98-107) mmol/L Carbon Dioxide (22-30) mmol/L BUN (9-20) mg/dL Creatinine (0.66-1.25) mg/dL Glucose (74-99) mg/dL Total Protein (6.3-8.2) g/dL Albumin (3.5-5.0) g/dL 04/17/19 Range/Units 06:51 RBC (4.30-5.90) m/uL Hgb (13.0-17.5) gm/dL Hct (39.0-53.0) % MCV (80.0-100.0) fL Plt Count (150-450) k/uL D-Dimer (<0.60) mg/L FEU ABG pH (7.35-7.45) ABG pCO2 (35-45) mmHg ABG pO2 (83-108) mmHg ABG HCO3 (21-25) mmol/L ABG Total CO2 (19-24) mmol/L ABG O2 Saturation (94-97) % Chloride 92 L (98-107) mmol/L Carbon Dioxide 45 H* (22-30) mmol/L BUN 62 H (9-20) mg/dL Creatinine 1.63 H (0.66-1.25) mg/dL Glucose 111 H (74-99) mg/dL Total Protein 5.6 L (6.3-8.2) g/dL Albumin 3.3 L (3.5-5.0) g/dL Assessment and Plan Plan: 1. Shortness of breath with acute diastolic CHF exacerbation, chest x-ray does not show fluid overload, anti-proBNP to be done, and , patient is chronically on Coumadin, history of subtherapeutic INRs on admission, history of DVT Coumadin will be resumed,, echocardiogram, IV Lasix 40 mg every 8 hours echocardiogram performed shows EF 5055% and mild concentric LVH and moderate pulmonary hypertension mild MR and moderate TR mild aortic stenosis without AR, right ventricle systolic pressure 43, 2. COPD, with coexistent exacerbation during this admission, pulmonary to see the patient, has underlying hypercarbia budesonide 0.5 mg twice a day ABGs to be done, consult with pulmonary 3. New Hypercarbia, hypercarbic respiratory failure / or metabolic alkalosis, possibly secondary to pre-existing diuretics, obstructive sleep apnea is suspected, ABGs to be done, consult with pulmonary, might need BiPAP treatments his machine is broken at home 4. Sleep apnea on CPAP at home, machine was broken for the past 2 weeks that can aggravate hypercarbia, family's advice to get this fixed 4.. Chronic kidney disease: With stage III CK-MB has been seen nephrology regular basis as outpatient continue to watch his BUN/creatinine daily. 5. A. fib with pulse rates under control patient is on Betapace along with warfarin PT/INR be done daily. 6. hypothyroidism: Has been on levothyroxine 200 g daily continue medication. 1. hyperlipidemia: On Lipitor 10 mg daily. 8. hypertension: Patient is not on calcium channel nicolette or SIDDHARTHA inhibitor prior to admission, unknown reason, this needs to be clarified he was on Diovan in the past, we'll going to be introduced this, 80 mg daily 9 gout with no flareup or recurrent symptoms patient has been on Zyloprim 100 mg daily. 10. Pulmonary hypertension secondary to chronic lung disease and obstructive sl eep apnea syndrome has hypercarbia, ABGs to be done, consult with pulmonary, might need BiPAP 11. Anticoagulation: Patient is on warfarin PT/INR be done daily. Suspect noncompliance subtherapeutic on ER eval patient Coumadin dose titrate thereafter 11 GI prophylaxis: Patient will be on Pepcid 20 mg daily. CODE STATUS: Full code. Discharge planning, home in the next 24 hours,
--- NOTE | 2019-04-17 15:21 | CONS ---
CONSULTATION REASON FOR CONSULT: Renal failure. HISTORY OF PRESENT ILLNESS: The patient is an 88-year-old male who was admitted to the hospital with complaints of increasing shortness of breath, increased lower extremity edema. The patient has an underlying history of chronic kidney disease NKF stage 3, with previous creatinine. Baseline creatinine about 1.4-1.3 mg/dL. He is currently being diuresed. The patient has received IV Lasix which is now discontinued. He states he is feeling better. Chest x-ray showed no significant CHF or cardiopulmonary disease. The patient was also in atrial fibrillation, rate is controlled. Serum creatinine was 1.3 on admission, now it is at 1.63. PAST MEDICAL HISTORY: Significant for hypertension, CKD stage 3, baseline creatinine 1.3-1.4 mg/dL, secondary hyperparathyroidism, coronary artery disease, history of DVT, atrial fibrillation, hypertension, OR, osteoarthritis, history of obstructive sleep apnea, hypothyroidism, history of PE, melanoma. PAST SURGICAL HISTORY: Pacemaker placement, coronary artery bypass surgery, cardiac catheterization, hernia repair, bilateral hip arthroplasties, right knee arthroplasty, skin cancer removal, colonoscopy, cataract surgeries, umbilical hernia repair. SOCIAL HISTORY: Patient is a former smoker. No history of drug abuse or alcohol abuse. REVIEW OF SYSTEMS: As per HPI. MEDICATIONS: Included Lipitor, Zyloprim, Betapace, Coumadin, Lasix Synthroid, melatonin, Lyrica, Glucotrol, prednisone. ALLERGIES: Include TAPE, AUGMENTIN, THORAZINE, POTASSIUM. EXAMINATION: Patient is currently comfortable, awake, alert, oriented x3, not in any acute distress. Blood pressure is 145/65, heart rate 88 per minute, he is afebrile. Examination of the heart S1, S2. Examination of the lungs, bilateral breath sounds are heard. Decreased breath sounds at bases. Abdomen is soft, nontender. Examination of lower extremities shows edema 2+ bilaterally with chronic skin changes. [employer] exam grossly intact. LAB: Show sodium 140, potassium 4.0, chloride 92, CO2 is 45, BUN 62, creatinine 1.63, albumin 3.3. ASSESSMENT: 1. Chronic kidney disease, NKF stage 3, baseline creatinine 1.3-1.4 mg/dL secondary to nephrosclerosis and atheromatous renovascular disease. 2. Chronic lower extremity edema, maintained on diuretics at home. 3. Metabolic alkalosis secondary to diuresis as well as compensatory mechanism for chronic obstructive pulmonary disease. I will add low-dose Diamox. 4. Acute kidney injury, mostly prerenal versus associated with recent diuresis. Agree with holding off on Lasix for now. 5. Chronic obstructive pulmonary disease. 6. History of diastolic heart failure. 7. Moderate pulmonary hypertension. PLAN: Continue to hold off on Lasix. Add 2 doses of Diamox. Repeat labs in a.m. Maintain patient on low salt diet. Thank you for this consult. MMODL / IJN: [id number] /
[2019-04-17] MEDS ORDERED: WARFARIN 5 MG TAB PO SCH (17:23)
[2019-04-17] MEDS ORDERED: WARFARIN 3 MG TAB PO ONE (18:00)
[2019-04-17] MEDS: ALLOPURINOL 100 MG TAB PO SCH (21:41)
[2019-04-17] MEDS: ATORVASTATIN 10 MG TAB PO SCH (21:41)
[2019-04-17] MEDS: MELATONIN 5 MG TABLET PO SCH (21:44)
[2019-04-18] MEDS: LEVOTHYROXINE 100 MCG TAB PO SCH (05:46)
[2019-04-18] MEDS: acetaZOLAMIDE 250 MG TAB PO SCH (08:49)
[2019-04-18] MEDS: predniSONE 20 MG TAB PO SCH (08:49)
[2019-04-18] MEDS: SOTALOL 80 MG TAB PO SCH (08:49)
[2019-04-18] MEDS: IPRATROPIUM-ALBUTEROL 3 ML NEB INHALATION SCH ×2 (09:26→12:59)
[2019-04-18] MEDS: BUDESONIDE 0.5 MG/2 ML NEBU INHALATION SCH (09:26)
[2019-04-18 09:39] LABS: Basophils # (A) 0.1 k/uL (0-0.2); Basophils % (A) 1 %; Eosinophils # (A) 0.1 k/uL (0-0.7); Eosinophils % (A) 2 %; HCT 32.8 % (39.0-53.0); HGB 9.9 gm/dL (13.0-17.5); Hypochromasia Marked; Lymphocytes # (A) 1.5 k/uL (1.0-4.8); Lymphocytes % (A) 21 %; MCH 31.2 pg (25.0-35.0); MCHC 30.3 g/dL (31.0-37.0); MCV 102.9 fL (80.0-100.0); Macrocytosis Slight; Mean Platelet Volume 9.4; Monocytes # (A) 0.4 k/uL (0-1.0); Monocytes % (A) 6 %; Neutrophils # (A) 4.8 k/uL (1.3-7.7); Neutrophils % (A) 69 %; Platelet Count 139 k/uL (150-450); RBC 3.19 m/uL (4.30-5.90); RDW 14.5 % (11.5-15.5); WBC 6.9 k/uL (3.8-10.6)
[2019-04-18 09:43] LABS: INR 1.2 (<1.2); Prothrombin Time 12.3 sec (9.0-12.0)
[2019-04-18 10:05] LABS: Albumin 3.7 g/dL (3.5-5.0); Calcium 9.2 mg/dL (8.4-10.2); Potassium 4.3 mmol/L (3.5-5.1); Total Bilirubin 0.4 mg/dL (0.2-1.3); Total Protein 6.1 g/dL (6.3-8.2)
--- NOTE | 2019-04-18 10:54 | P.CRDCN ---
History of Present Illness Consult date: 04/18/19 Requesting physician: Joshua Arzate Reason for Consult (text): CHF Chief complaint: tachycardia, shortness of breath History of present illness: This is a pleasant 88-year-old gentleman who follows with Dr. Kathleen in the office. He has a history of COPD, paroxysmal atrial fibrillation for which he was on Coumadin in the past but admission INR was 1.0, chronic kidney disease, hypertension, hyperlipidemia, hypothyroidism, diabetes, obstructive sleep apnea for which she uses a CPAP, history of PE, hypothyroidism, hyperlipidemia and prior pacemaker implantation in 2013 likely for sick sinus syndrome. The patient does have some memory impairment. Patient presented to the hospital because upon checking pulse oximeter heart rate was 105 and the noticed him to be more short of breath than usual. Chest x-ray on admission showed no active cardiopulmonary disease, no change. EKG on admission showed atrial paced rhythm with right bundle branch block. Laboratory values show evidence of metabolic alkalosis and the patient has been started on Diamox. Most recent available labs showed BUN of 62, creatinine 1.63. NT proBNP was elevated at 3660. Per recommendation from nephrology Lasix is on hold. We are asked to the patient consultation for diastolic congestive heart failure. Patient did have 2-D echo with Doppler during recent hospital admission in December 2018 which revealed low normal LV systolic function with an ejection fraction between 50-55%, evidence of diastolic dysfunction, moderately enlarged RV, severely dilated LA, mild aortic stenosis, mild mitral regurgitation, mild to moderate tricuspid regurgitation and moderate pulmonary hypertension. The patient's vital signs are stable and he is afebrile. Upon examination, patient is resting comfortably in bed with head of bed flat. The feels his breathing has improved significantly. Patient denies any complaints of chest discomfort, dizziness, lightheadedness or current complaints of edema. Past Medical History Past Medical History: Atrial Fibrillation, Coronary Artery Disease (CAD), Cancer, Deep Vein Thrombosis (DVT), Hyperlipidemia, Hypertension, Myocardial Infarction (IA), Osteoarthritis (OA), Pulmonary Embolus (PE), Renal Disease, Sleep Apnea/CPAP/BIPAP, Thyroid Disorder Additional Past Medical History / Comment(s): COPD, obstructive sleep apnea, obesity, chronic atrial fibrillation, coronary artery disease, chronic stage III kidney disease, hypothyroidism, previous history of pulmonary embolism, hypothyroidism, gout, hyperlipidemia, history of skin cancer that was resected from the right arm he think it's a melanoma, previous history of myocardial infarction in 1996. History of pacemaker insertion. Last Myocardial Infarction Date:: 1996 History of Any Multi-Drug Resistant Organisms: None Reported Past Surgical History: Coronary Bypass/CABG, Heart Catheterization, Hernia Repair, Joint Replacement, Orthopedic Surgery, Pacemaker Additional Past Surgical History / Comment(s): 1996 CABG-5 vessel, L/R total hip arthroplasties, R knee total arthroplasty with revision, skin cancer removals, colonoscopy, pacemaker 2012 while in [place], bilateral cataract removals, R writst with plates and screws, umbilical hernia repair. Past Anesthesia/Blood Transfusion Reactions: No Reported Reaction Type of Cardiac Device: Permanent Pacemaker Device Placement Date:: 2012 Past Psychological History: No Psychological Hx Reported Smoking Status: Former smoker Past Alcohol Use History: Rare Past Drug Use History: None Reported - Past Family History Father Family Medical History: Cancer Additional Family Medical History / Comment(s): Father of colon cancer. Mother Family Medical History: No Reported History Additional Family Medical History / Comment(s): Mother lived to be 76yrs old. Medications and Allergies Home Medications Medication Instructions Recorded Confirmed Type Allopurinol [Zyloprim] 100 mg PO HS 09/21/14 04/16/19 History Atorvastatin Calcium [Lipitor] 10 mg PO HS 09/21/14 04/16/19 History Sotalol [Betapace] 80 mg PO BID 09/21/14 04/16/19 History Warfarin [Coumadin] 2.5 mg PO SUMOWEFR 06/10/16 04/16/19 History Warfarin [Coumadin] 5 mg PO TUTHSA 06/10/16 04/16/19 History Levothyroxine Sodium [Synthroid] 200 mcg PO DAILY 01/16/19 04/16/19 History Aspirin EC [Ecotrin Low Dose] 81 mg PO DAILY 04/16/19 04/16/19 History Furosemide [Lasix] 80 mg PO BID 04/16/19 04/16/19 History Allergies Allergy/AdvReac Type Severity Reaction Status Date / Time adhesive Allergy Unknown Verified 04/16/19 16:26 amoxicillin trihydrate Allergy Unknown Verified 04/16/19 16:26 [From Augmentin] chlorpromazine HCl Allergy Unknown Verified 04/16/19 16:26 [From Thorazine] nitroglycerin Allergy Unknown Verified 04/16/19 16:26 potassium clavulanate Allergy Unknown Verified 04/16/19 16:26 [From Augmentin] Physical Exam Vitals: Vital Signs Temp Pulse Pulse Resp BP Pulse Ox 04/18/19 09:49 68 04/18/19 09:29 64 100 04/18/19 05:00 97.9 F 100 20 148/76 98 04/17/19 22:00 98.5 F 61 20 158/49 95 04/17/19 19:55 84 04/17/19 19:33 88 04/17/19 16:09 80 04/17/19 15:59 80 04/17/19 12:37 98.0 F 65 16 134/68 99 04/17/19 11:16 92 04/17/19 11:04 92 Intake and Output 04/17/19 04/18/19 04/18/19 22:59 06:59 14:59 Intake Total 200 100 Balance 200 100 Intake: Oral 200 100 Other: # Voids 2 3 # Bowel Movements 0 0 Weight 95 kg PHYSICAL EXAMINATION: HEENT: Head is atraumatic, normocephalic. Pupils equal, round. Neck is supple. There is no elevated jugular venous pressure. HEART EXAMINATION: Heart sounds regular, S1 and S2 with a systolic murmur. CHEST EXAMINATION: Lungs reveal diminished air entry bilaterally with crackles noted to right base. No chest wall tenderness is noted on palpation or with deep breathing. ABDOMEN: Soft, obese, nontender. Bowel sounds are heard. No organomegaly noted. EXTREMITIES: 2+ peripheral pulses with evidence of trace left lower extremity edema and no calf tenderness noted. NEUROLOGIC patient is awake, alert and oriented x3. . Results 04/18/19 09:18 04/18/19 09:18 Cardiac Enzymes 04/18/19 Range/Units 09:18 AST 24 (17-59) U/L Coagulation 04/18/19 Range/Units 09:18 PT 12.3 H (9.0-12.0) sec CBC 04/18/19 Range/Units 09:18 WBC 6.9 (3.8-10.6) k/uL RBC 3.19 L (4.30-5.90) m/uL Hgb 9.9 L (13.0-17.5) gm/dL Hct 32.8 L (39.0-53.0) % Plt Count 139 L (150-450) k/uL Comprehensive Metabolic Panel 04/18/19 Range/Units 09:18 Sodium 143 (137-145) mmol/L Potassium 4.3 (3.5-5.1) mmol/L Chloride 96 L (98-107) mmol/L Carbon Dioxide 41 H* (22-30) mmol/L BUN 58 H (9-20) mg/dL Creatinine 1.61 H (0.66-1.25) mg/dL Glucose 119 H (74-99) mg/dL Calcium 9.2 (8.4-10.2) mg/dL AST 24 (17-59) U/L ALT 12 (4-49) U/L Alkaline Phosphatase 98 (38-126) U/L Total Protein 6.1 L (6.3-8.2) g/dL Albumin 3.7 (3.5-5.0) g/dL Current Medications Generic Name Dose Route Start Last Admin Trade Name Freq PRN Reason Stop Dose Admin Acetazolamide 250 mg 04/16/19 23:30 04/18/19 08:49 Diamox PO 250 mg BID XIOMY Administration Albuterol/Ipratropium 3 ml 04/16/19 15:26 Duoneb 0.5 Mg-3 Mg/3 Ml Soln INHALATION RT-Q4H PRN Shortness Of Breath Or Wheezing Albuterol/Ipratropium 3 ml 04/16/19 16:00 04/18/19 09:26 Duoneb 0.5 Mg-3 Mg/3 Ml Soln INHALATION 3 ml RT-QID XIOMY Administration Allopurinol 100 mg 04/16/19 21:00 04/17/19 21:41 Zyloprim PO 100 mg HS XIOMY Administration Atorvastatin Calcium 10 mg 04/16/19 21:00 04/17/19 21:41 Lipitor PO 10 mg HS XIOMY Administration Budesonide 0.5 mg 04/16/19 20:00 04/18/19 09:26 Pulmicort INHALATION 0.5 mg RT-BID XIOMY Administration Levothyroxine Sodium 200 mcg 04/17/19 06:30 04/18/19 05:46 Synthroid PO 200 mcg 0630 XIOMY Administration Melatonin 10 mg 04/16/19 21:00 04/17/19 21:44 Melatonin PO 10 mg HS XIOMY Administration Miscellaneous Information 1 each 04/16/19 17:33 Coumadin Per Pharmacy MISCELLANE DIRECTED PRN INR Prednisone 40 mg 04/17/19 09:00 04/18/19 08:49 PO 40 mg DAILY XIOMY Administration Sotalol HCl 80 mg 04/16/19 21:00 04/18/19 08:49 Betapace PO 80 mg BID XIOMY Administration Intake and Output 04/17/19 04/18/19 04/18/19 22:59 06:59 14:59 Intake Total 200 100 Balance 200 100 Intake: Oral 200 100 Other: # Voids 2 3 # Bowel Movements 0 0 Weight 95 kg 04/18/19 09:18 04/18/19 09:18 Assessment and Plan Assessment: #1 worsening shortness of breath due to exacerbation COPD and possible element of acute on chronic diastolic heart failure. #2 COPD #3 history of CAD with prior CABG #4 paroxysmal atrial fibrillation with subtherapeutic INR, on Coumadin managed by primary #5 hypertension #6 metabolic alkalosis, and Diamox #7 acute kidney injury on chronic kidney disease, followed by nephrology Plan: From elementary reading tutor perspective, medications were reviewed and will continue the same. She wouldn't be managed by primary. From our perspective, patient may be discharged home when okay by primary. He'll follow-up in the office with Dr. Kathleen. RESEARCH DEVELOPMENT DIRECTOR note has been reviewed, I agree with a documented findings and plan of care. Patient was seen and examined.
--- NOTE | 2019-04-18 11:10 | P.PN ---
Subjective Progress Note Date: 04/18/19 Principal diagnosis: Acute on chronic hypoxic respiratory failure secondary to an exacerbation of COPD/diastolic congestive heart failure This is a very pleasant 88-year-old gentleman with a known history of hyperlipidemia, atrial fibrillation anticoagulated with warfarin, hypot hyroidism, congestive heart failure, gout, DVT/PE, coronary artery disease with previous coronary artery bypass grafting, osteoarthritis with multiple orthopedic surgeries, permanent pacemaker implantation, former smoker, COPD. He follows with Dr. Crowe in our office. He presented here yesterday with complaints of shortness of breath, palpitations, lower extremity edema. chest x- ray showed no acute cardiopulmonary process. arterial blood gases revealed a pO2 of 120, pCO2 64, pH 7.49 on 32% FiO2. Sodium 140. Potassium 4.0. Bicarb 45. Creatinine 1.63. White count 4.3. Hemoglobin 9.2. previous echocardiogram revealed preserved left ventricular systolic function with ejection fraction 50-55%. Troponin 0.0-3. ProBNP 3660. The patient is seen in consultation on the regular medical floor. He is currently sitting up at the bedside having breakfast. Awake and alert in no acute distress. No worsening shortness of breath, cough or congestion. No chest pain or palpitations. He had been initiated on bronchodilators, prednisone, Diamox for metabolic alkalosis. The patient is seen today 04/18/2019 in follow-up on the regular medical floor. He is currently sitting up at the bedside. Awake and alert in no acute distress. Breathing easier today as compared to yesterday. According to the patient's there was some concerns regarding elevated heart rate last night. Currently maintaining O2 saturations up to 100% on 2 L/m per nasal cannula. She's afebrile. Hemodynamically stable. Heart rate in the 60s. Paced rhythm. White count 6.9. Hemoglobin 9.9. INR 1.2. Sodium 143. Potassium 4.3. Bicarb 41. Creatinine 1.61. He is continued on DuoNeb inhalations, Pulmicort i nhalations, IV solu Medrol. Currently on Diamox. Objective - Vital Signs Vital signs: Vital Signs Temp 97.9 F 04/18/19 05:00 Pulse 68 04/18/19 09:49 Resp 20 04/18/19 05:00 BP 148/76 04/18/19 05:00 Pulse Ox 100 04/18/19 09:29 Intake & Output 04/17/19 04/18/19 04/18/19 18:59 06:59 18:59 Intake Total 540 300 Balance 540 300 Weight 91.626 kg 95 kg Intake: Oral 540 300 Other: # Voids 2 3 # Bowel Movements 0 - Exam GENERAL EXAM: Alert, very pleasant 88-year-old gentleman,on 2 L nasal cannula, active, comfortable in no apparent distress. HEAD: Normocephalic. EYES: Normal reaction of pupils, equal size. NOSE: Clear with pink turbinates. THROAT: No erythema or exudates. NECK: No masses, no JVD. CHEST: No chest wall deformity. LUNGS: Equal air entry with no crackles, wheeze, rhonchi or dullness. diminished. CVS: S1 and S2 normal with no audible murmur, regular rhythm, paced. ABDOMEN: No hepatosplenomegaly, normal bowel sounds, no guarding or rigidity. SPINE: No scoliosis or deformity SKIN: No rashes CENTRAL NERVOUS SYSTEM: No focal deficits, tone is normal in all 4 extremities. EXTREMITIES: There is trace peripheral edema. No clubbing, no cyanosis. Peripheral pulses are intact. - Labs CBC & Chem 7: 04/18/19 09:18 04/18/19 09:18 Labs: Abnormal Lab Results - Last 24 Hours (Table) 04/18/19 04/18/19 04/18/19 Range/Units 09:18 09:18 09:18 RBC 3.19 L (4.30-5.90) m/uL Hgb 9.9 L (13.0-17.5) gm/dL Hct 32.8 L (39.0-53.0) % MCV 102.9 H (80.0-100.0) fL MCHC 30.3 L (31.0-37.0) g/dL Plt Count 139 L (150-450) k/uL PT 12.3 H (9.0-12.0) sec INR 1.2 H (<1.2) Chloride 96 L (98-107) mmol/L Carbon Dioxide 41 H* (22-30) mmol/L BUN 58 H (9-20) mg/dL Creatinine 1.61 H (0.66-1.25) mg/dL Glucose 119 H (74-99) mg/dL Total Protein 6.1 L (6.3-8.2) g/dL Assessment and Plan Assessment: 1 acute on chronic hypoxic respiratory failure secondary to an exacerbation of COPD as well as an acute exacerbation of diastolic CHF, improving with treatment 2 COPD, oxygen dependent 3 coronary artery disease with previous myocardial infarction 4 chronic atrial fibrillation with a subtherapeutic PT/INR. Current rhythm is paced and the patient has a pacemaker in place 5 hypertension 6 hyperlipidemia 7 hypothyroidism 8 gout 9 obstructive sleep apnea maintained on CPAP pressure of 9 cm of water 10 remote history of pulmonary embolism and the patient has been maintained on long-term articulation with warfarin 11 osteoarthritis 12 chronic stage III kidney disease Plan The patient was seen and evaluated by Dr. Arzate. He is stable from the pulmonary standpoint. Upon discharge he'll keep his scheduled appointment with Dr. Vela in April 2019. Increase his activity as tolerated. We'll continue to follow. I, the cosigning physician, performed a history & physical examination of the patient. Lungs sounds are clear, diminished. Maintaining good O2 saturations in the 90s on 2 L/m per nasal cannula. I discussed the assessment and plan of care with my nurse practitioner, Shira Faith. I attest to the above consultation as dictated by her.
[2019-04-18 13:41] VITALS: BP 146/61; PULSE 59; RESP 16; TEMP 97.7
[2019-04-18] MEDS ORDERED: WARFARIN 5 MG TAB PO ONE (18:00)
--- NOTE | 2019-04-18 18:17 | PN ---
PROGRESS NOTE Patient is seen for followup for CKD. He is currently comfortable. Patient is planning to go home. He denies any significant complaints. PHYSICAL EXAMINATION: This morning blood pressure was 148/76, heart rate of 64 per minute. Patient is afebrile. EXAMINATION OF THE HEART: S1 and S2. EXAMINATION OF LUNGS: Bilateral breath sounds are heard. ABDOMEN: Soft, non-tender. Examination of lower extremities shows chronic skin changes and edema 1+ bilaterally. LABS: Sodium 143, potassium 4.3. CO2 is 41, BUN 58, creatinine 1.6. ASSESSMENT: 1. Chronic kidney disease, NKF stage III, secondary to nephrosclerosis. Renal function close to baseline. Creatinine baseline about 1.4 mg/dL. 2. Chronic lower extremity edema, maintained on home diuretics. 3. Metabolic alkalosis secondary to diuresis, currently improved. Diamox was added. 4. Chronic obstructive pulmonary disease exacerbation. PLAN: Patient is stable for discharge. Continue home dose of diuretics and follow up as outpatient. MMODL / IJN: [id number] /
== END 2019-04-18 13:51 | disposition home or self-care (01) | DRG 291 ==
LOC: EC 12:58 → 6NMEDSUR 15:26 → OBSVTOIN 04-18 10:21
PROVIDERS: ADMIT Family Medicine; ATTEND Family Medicine
DX: I13.0 Hypertensive heart and chronic kidney disease with heart failure and stage 1 through stage 4 chronic kidney disease, or unspecified chronic kidney disease (principal); I50.33 Acute on chronic diastolic (congestive) heart failure; J96.21 Acute and chronic respiratory failure with hypoxia; J96.22 Acute and chronic respiratory failure with hypercapnia; J44.1 Chronic obstructive pulmonary disease with (acute) exacerbation; I48.20 Chronic atrial fibrillation, unspecified; E87.4 Mixed disorder of acid-base balance; N17.9 Acute kidney failure, unspecified; I49.5 Sick sinus syndrome; E11.22 Type 2 diabetes mellitus with diabetic chronic kidney disease; N18.3 Chronic kidney disease, stage 3 (moderate); I27.20 Pulmonary hypertension, unspecified; I08.3 Combined rheumatic disorders of mitral, aortic and tricuspid valves; G47.33 Obstructive sleep apnea (adult) (pediatric); I45.10 Unspecified right bundle-branch block; T50.2X5A Adverse effect of carbonic-anhydrase inhibitors, benzothiadiazides and other diuretics, initial encounter; E78.5 Hyperlipidemia, unspecified; I25.10 Atherosclerotic heart disease of native coronary artery without angina pectoris; E03.9 Hypothyroidism, unspecified; M19.90 Unspecified osteoarthritis, unspecified site; M10.9 Gout, unspecified; E21.3 Hyperparathyroidism, unspecified; M54.9 Dorsalgia, unspecified; E66.9 Obesity, unspecified; I25.2 Old myocardial infarction; Z68.34 Body mass index [BMI] 34.0-34.9, adult; Z99.81 Dependence on supplemental oxygen; Z79.82 Long term (current) use of aspirin; Z79.890 Hormone replacement therapy; Z79.01 Long term (current) use of anticoagulants; Z79.899 Other long term (current) drug therapy; Z77.098 Contact with and (suspected) exposure to other hazardous, chiefly nonmedicinal, chemicals; Z71.3 Dietary counseling and surveillance; Z87.891 Personal history of nicotine dependence; Z86.718 Personal history of other venous thrombosis and embolism; Z86.711 Personal history of pulmonary embolism; Z85.820 Personal history of malignant melanoma of skin; Z95.0 Presence of cardiac pacemaker; Z95.1 Presence of aortocoronary bypass graft; Z96.643 Presence of artificial hip joint, bilateral; Z96.651 Presence of right artificial knee joint; Z98.42 Cataract extraction status, left eye; Z98.41 Cataract extraction status, right eye; Z98.890 Other specified postprocedural states; Z88.0 Allergy status to penicillin; Z88.8 Allergy status to other drugs, medicaments and biological substances; Z91.048 Other nonmedicinal substance allergy status; Z80.0 Family history of malignant neoplasm of digestive organs
CPT/HCPCS: 36415; 36600; 71046; 80053; 82805; 83735; 83880; 84145; 84484; 85025; 85379; 85610; 85730; 93005; 94640; 94760; 96374; 99285

== ENCOUNTER 2019-07-05 16:37 | Emergency (ER) | payer MEDICARE, BC ==
--- NOTE | 2019-07-05 17:15 | ED ---
General Adult HPI - General Chief complaint: Recheck/Abnormal Lab/Rx Stated complaint: Abnormal lab Time Seen by Provider: 07/05/19 16:52 Source: patient, RN notes reviewed Mode of arrival: wheelchair Limitations: no limitations - History of Present Illness Initial comments: Patient is a pleasant 88-year-old male presenting to the emergency department w ith for concerns for abnormal lab. Reportedly the office from the kidney doctor called and stated there was a lab abnormality. Patient does not have history of kidney problems however does see the kidney doctor. Patient and family are unclear which lab was actually abnormal. Patient states he feels fine and has no concerns. - Related Data Home Medications Medication Instructions Recorded Confirmed Allopurinol [Zyloprim] 100 mg PO HS 09/21/14 04/16/19 Atorvastatin Calcium [Lipitor] 10 mg PO HS 09/21/14 04/16/19 Sotalol [Betapace] 80 mg PO BID 09/21/14 04/16/19 Warfarin [Coumadin] 2.5 mg PO SUMOWEFR 06/10/16 04/16/19 Warfarin [Coumadin] 5 mg PO TUTHSA 06/10/16 04/16/19 Levothyroxine Sodium [Synthroid] 200 mcg PO DAILY 01/16/19 04/16/19 Aspirin EC [Ecotrin Low Dose] 81 mg PO DAILY 04/16/19 04/16/19 Previous Rx's Medication Instructions Recorded Budesonide [Pulmicort] 0.5 mg INHALATION RT-BID nebu 04/18/19 Furosemide [Lasix] 40 mg PO BID #0 04/18/19 Ipratropium-Albuterol Nebulize 3 ml INHALATION RT-QID ampul.neb 04/18/19 [Duoneb 0.5 mg-3 mg/3 ml Soln] Melatonin 10 mg PO HS tablet 04/18/19 acetaZOLAMIDE [Diamox] 250 mg PO BID #60 tab 04/18/19 predniSONE [Deltasone] 40 mg PO DAILY #10 tab 04/18/19 Allergies Allergy/AdvReac Type Severity Reaction Status Date / Time adhesive Allergy Unknown Verified 07/05/19 16:44 amoxicillin trihydrate Allergy Unknown Verified 07/05/19 16:44 [From Augmentin] chlorpromazine HCl Allergy Unknown Verified 07/05/19 16:44 [From Thorazine] nitroglycerin Allergy Unknown Verified 07/05/19 16:44 potassium clavulanate Allergy Unknown Verified 07/05/19 16:44 [From Augmentin] Review of Systems ROS Statement: Those systems with pertinent positive or pertinent negative responses have been documented in the HPI. ROS Other: All systems not noted in ROS Statement are negative. Constitutional: Denies: fever Eyes: Denies: eye pain ENT: Denies: ear pain Respiratory: Denies: cough, dyspnea Cardiovascular: Denies: chest pain, palpitations Endocrine: Denies: fatigue Gastrointestinal: Denies: abdominal pain, nausea, vomiting Genitourinary: Denies: dysuria Musculoskeletal: Denies: back pain Skin: Denies: rash Neurological: Denies: headache, weakness, confusion Past Medical History Past Medical History: Atrial Fibrillation, Coronary Artery Disease (CAD), Cancer, Deep Vein Thrombosis (DVT), Hyperlipidemia, Hypertension, Myocardial Infarction (PR), Osteoarthritis (OA), Pulmonary Embolus (PE), Renal Disease, Sleep Apnea/CPAP/BIPAP, Thyroid Disorder Additional Past Medical History / Comment(s): COPD, obstructive sleep apnea, obesity, chronic atrial fibrillation, coronary artery disease, chronic stage III kidney disease, hypothyroidism, previous history of pulmonary embolism, hypothyroidism, gout, hyperlipidemia, history of skin cancer that was resected from the right arm he think it's a melanoma, previous history of myocardial infarction in 1996. History of pacemaker insertion. Last Myocardial Infarction Date:: 1996 History of Any Multi-Drug Resistant Organisms: None Reported Past Surgical History: Coronary Bypass/CABG, Heart Catheterization, Hernia Repair, Joint Replacement, Orthopedic Surgery, Pacemaker Additional Past Surgical History / Comment(s): 1996 CABG-5 vessel, L/R total hip arthroplasties, R knee total arthroplasty with revision, skin cancer removals, colonoscopy, pacemaker 2012 while in [place], bilateral cataract removals, R writst with plates and screws, umbilical hernia repair. Past Anesthesia/Blood Transfusion Reactions: No Reported Reaction Type of Cardiac Device: Permanent Pacemaker Device Placement Date:: 2012 Past Psychological History: No Psychological Hx Reported Smoking Status: Former smoker Past Alcohol Use History: Rare Past Drug Use History: None Reported - Past Family History Father Family Medical History: Cancer Additional Family Medical History / Comment(s): Father of colon cancer. Mother Family Medical History: No Reported History Additional Family Medical History / Comment(s): Mother lived to be 76yrs old. General Exam Limitations: no limitations Course Vital Signs 07/05/19 07/05/19 16:41 18:38 Temperature 98.4 F Pulse Rate 70 61 Respiratory 16 16 Rate Blood Pressure 125/73 149/75 O2 Sat by Pulse 96 97 Oximetry EKG Findings - EKG Comments: EKG Findings:: Paced rhythm at 60. MA 186. QRS 132. QTC 498 QTC 498. Left axis. Right bundle branch block. LVH criteria. Inferior Q waves. Medical Decision Making - Medical Decision Making Case was discussed with Dr. Gee with nephrology who did review labs earlier today as well as discussed with labs done in the emergency department. He does recommend 1 L of fluids slowly and then patient can be discharged. Patient and family updated. Patient still remained symptom-free. - Lab Data Result diagrams: 07/05/19 17:33 07/05/19 17:33 Lab Results 07/05/19 07/05/19 07/05/19 Range/Units 17:33 17:33 17:33 WBC 4.8 (3.8-10.6) k/uL RBC 3.49 L (4.30-5.90) m/uL Hgb 10.6 L (13.0-17.5) gm/dL Hct 34.4 L (39.0-53.0) % MCV 98.5 (80.0-100.0) fL MCH 30.4 (25.0-35.0) pg MCHC 30.8 L (31.0-37.0) g/dL RDW 15.2 (11.5-15.5) % Plt Count 128 L (150-450) k/uL Neutrophils % 50 % Lymphocytes % 30 % Monocytes % 7 % Eosinophils % 9 % Basophils % 1 % Neutrophils # 2.4 (1.3-7.7) k/uL Lymphocytes # 1.4 (1.0-4.8) k/uL Monocytes # 0.4 (0-1.0) k/uL Eosinophils # 0.4 (0-0.7) k/uL Basophils # 0.0 (0-0.2) k/uL Hypochromasia Slight Macrocytosis Slight PT 16.3 H (9.0-12.0) sec INR 1.7 H (<1.2) APTT 26.7 (22.0-30.0) sec Sodium 137 (137-145) mmol/L Potassium 4.4 (3.5-5.1) mmol/L Chloride 87 L (98-107) mmol/L Carbon Dioxide 45 H* (22-30) mmol/L Anion Gap 5 mmol/L BUN 83 H (9-20) mg/dL Creatinine 1.57 H (0.66-1.25) mg/dL Est GFR (CKD-EPI)AfAm 45 (>60 ml/min/1.73 sqM) Est GFR (CKD-EPI)NonAf 39 (>60 ml/min/1.73 sqM) Glucose 104 H (74-99) mg/dL Plasma Lactic Acid Wilfredo (0.7-2.0) mmol/L Calcium 8.8 (8.4-10.2) mg/dL Phosphorus 5.0 H (2.5-4.5) mg/dL Magnesium 2.4 H (1.6-2.3) mg/dL Total Bilirubin 0.5 (0.2-1.3) mg/dL AST 52 (17-59) U/L ALT 16 (4-49) U/L Alkaline Phosphatase 108 (38-126) U/L Total Protein 6.4 (6.3-8.2) g/dL Albumin 4.0 (3.5-5.0) g/dL Urine Color Urine Appearance (Clear) Urine pH (5.0-8.0) Ur Specific Bison (1.001-1.035) Urine Protein (Negative) Urine Glucose (UA) (Negative) Urine Ketones (Negative) Urine Blood (Negative) Urine Nitrite (Negative) Urine Bilirubin (Negative) Urine Urobilinogen (<2.0) mg/dL Ur Leukocyte Esterase (Negative) Urine RBC (0-5) /hpf Urine WBC (0-5) /hpf Ur Squamous Epith Cells (0-4) /hpf Hyaline Casts (0-2) /lpf Urine Mucus (None) /hpf 07/05/19 07/05/19 Range/Units 17:33 18:04 WBC (3.8-10.6) k/uL RBC (4.30-5.90) m/uL Hgb (13.0-17.5) gm/dL Hct (39.0-53.0) % MCV (80.0-100.0) fL MCH (25.0-35.0) pg MCHC (31.0-37.0) g/dL RDW (11.5-15.5) % Plt Count (150-450) k/uL Neutrophils % % Lymphocytes % % Monocytes % % Eosinophils % % Basophils % % Neutrophils # (1.3-7.7) k/uL Lymphocytes # (1.0-4.8) k/uL Monocytes # (0-1.0) k/uL Eosinophils # (0-0.7) k/uL Basophils # (0-0.2) k/uL Hypochromasia Macrocytosis PT (9.0-12.0) sec INR (<1.2) APTT (22.0-30.0) sec Sodium (137-145) mmol/L Potassium (3.5-5.1) mmol/L Chloride (98-107) mmol/L Carbon Dioxide (22-30) mmol/L Anion Gap mmol/L BUN (9-20) mg/dL Creatinine (0.66-1.25) mg/dL Est GFR (CKD-EPI)AfAm (>60 ml/min/1.73 sqM) Est GFR (CKD-EPI)NonAf (>60 ml/min/1.73 sqM) Glucose (74-99) mg/dL Plasma Lactic Acid Wilfredo 0.7 (0.7-2.0) mmol/L Calcium (8.4-10.2) mg/dL Phosphorus (2.5-4.5) mg/dL Magnesium (1.6-2.3) mg/dL Total Bilirubin (0.2-1.3) mg/dL AST (17-59) U/L ALT (4-49) U/L Alkaline Phosphatase (38-126) U/L Total Protein (6.3-8.2) g/dL Albumin (3.5-5.0) g/dL Urine Color Colorless Urine Appearance Clear (Clear) Urine pH 6.0 (5.0-8.0) Ur Specific Bison 1.006 (1.001-1.035) Urine Protein Negative (Negative) Urine Glucose (UA) Negative (Negative) Urine Ketones Negative (Negative) Urine Blood Negative (Negative) Urine Nitrite Negative (Negative) Urine Bilirubin Negative (Negative) Urine Urobilinogen <2.0 (<2.0) mg/dL Ur Leukocyte Esterase Small H (Negative) Urine RBC 1 (0-5) /hpf Urine WBC 4 (0-5) /hpf Ur Squamous Epith Cells <1 (0-4) /hpf Hyaline Casts 14 H (0-2) /lpf Urine Mucus Rare H (None) /hpf Disposition Clinical Impression: Dehydration Disposition: HOME SELF-CARE Condition: Stable Instructions (If sedation given, give patient instructions): Dehydration (ED) Additional Instructions: Please follow-up with primary care physician and Dr. Nash on Monday. Please have them review labs from today. Return for difficulty breathing, weakness or confusion, worsening symptoms or other concerns. Is patient prescribed a controlled substance at d/c from ED?: No Referrals: Hayder Alfonso DO [Primary Care Provider] - 1-2 days Lacie Nash MD [STAFF PHYSICIAN] - 1-2 days Time of Disposition: 18:42
[2019-07-05 17:40] LABS: Basophils % (A) 1 %; Eosinophils # (A) 0.4 k/uL (0-0.7); Eosinophils % (A) 9 %; HCT 34.4 % (39.0-53.0); HGB 10.6 gm/dL (13.0-17.5); Hypochromasia Slight; Lymphocytes # (A) 1.4 k/uL (1.0-4.8); Lymphocytes % (A) 30 %; MCH 30.4 pg (25.0-35.0); MCHC 30.8 g/dL (31.0-37.0); MCV 98.5 fL (80.0-100.0); Macrocytosis Slight; Mean Platelet Volume 8.2; Monocytes # (A) 0.4 k/uL (0-1.0); Monocytes % (A) 7 %; Neutrophils # (A) 2.4 k/uL (1.3-7.7); Neutrophils % (A) 50 %; Platelet Count 128 k/uL (150-450); RBC 3.49 m/uL (4.30-5.90); RDW 15.2 % (11.5-15.5); WBC 4.8 k/uL (3.8-10.6)
[2019-07-05 17:55] LABS: INR 1.7 (<1.2); Partial Thromboplastin Time 26.7 sec (22.0-30.0); Prothrombin Time 16.3 sec (9.0-12.0)
[2019-07-05 17:57] LABS: Calcium 8.8 mg/dL (8.4-10.2); Magnesium 2.4 mg/dL (1.6-2.3); Total Bilirubin 0.5 mg/dL (0.2-1.3); Total Protein 6.4 g/dL (6.3-8.2)
--- NOTE | 2019-07-05 18:03 | XR ---
EXAMINATION TYPE: XR chest 2V DATE OF EXAM: 07/05/2019 COMPARISON: 04/16/2019 TECHNIQUE: PA and lateral views submitted. HISTORY: Shortness of breath and weakness FINDINGS: Hypertrophic and degenerative changes spine. Heart is enlarged there is postoperative change and card iac device. Arthropathy of the shoulders. No pneumothorax. Limited inspiration. Central interstitial pattern seen with basilar subsegmental consolidation.. IMPRESSION: 1. Basilar atelectasis favored over pneumonia correlate clinically. 2. Coarsened interstitium correlate for mild venous congestion. 3. severe cardiomegaly
[2019-07-05 18:05] LABS: Potassium 4.4 mmol/L (3.5-5.1)
[2019-07-05 18:25] LABS: Appearance,Urine Clear (Clear); Bilirubin,Urine Negative (Negative); Blood,Urine Negative (Negative); Color,Urine Colorless; Glucose,Urine (UA) Negative (Negative); Hyaline Casts,Urine 14 /lpf (0-2); Ketones,Urine Negative (Negative); Leukocyte Esterase,Urine Small (Negative); Mucus,Urine Rare /hpf; Nitrite,Urine Negative (Negative); Protein,Urine Negative (Negative); RBC,Urine 1 /hpf (0-5); Specific Gravity,Urine 1.006 (1.001-1.035); Squamous Epithelial Cell,Urine <1 /hpf (0-4); Urobilinogen,Urine <2.0 mg/dL (<2.0); WBC,Urine 4 /hpf (0-5)
[2019-07-05] MEDS ORDERED: SODIUM CHLORIDE 0.9% 1,000 ML IV STA (18:25)
[2019-07-05 20:46] VITALS: BP 138/72; PULSE 64; RESP 18; TEMP 97.8
== END 2019-07-05 20:46 | disposition home or self-care (01) ==
LOC: EC 16:37
DX: E86.0 Dehydration (principal); I48.20 Chronic atrial fibrillation, unspecified; I25.10 Atherosclerotic heart disease of native coronary artery without angina pectoris; E78.5 Hyperlipidemia, unspecified; I12.9 Hypertensive chronic kidney disease with stage 1 through stage 4 chronic kidney disease, or unspecified chronic kidney disease; N18.3 Chronic kidney disease, stage 3 (moderate); I25.2 Old myocardial infarction; M19.90 Unspecified osteoarthritis, unspecified site; G47.33 Obstructive sleep apnea (adult) (pediatric); E03.9 Hypothyroidism, unspecified; M10.9 Gout, unspecified; Z87.891 Personal history of nicotine dependence; Z88.0 Allergy status to penicillin; Z88.8 Allergy status to other drugs, medicaments and biological substances; Z91.048 Other nonmedicinal substance allergy status; Z79.01 Long term (current) use of anticoagulants; Z79.82 Long term (current) use of aspirin; Z79.890 Hormone replacement therapy; Z79.899 Other long term (current) drug therapy; Z85.820 Personal history of malignant melanoma of skin; Z98.890 Other specified postprocedural states; Z86.718 Personal history of other venous thrombosis and embolism; Z86.711 Personal history of pulmonary embolism; Z95.0 Presence of cardiac pacemaker; Z95.1 Presence of aortocoronary bypass graft; Z96.643 Presence of artificial hip joint, bilateral; Z96.651 Presence of right artificial knee joint; Z96.698 Presence of other orthopedic joint implants; Z99.89 Dependence on other enabling machines and devices
CPT/HCPCS: 36415; 71046; 80053; 81001; 83605; 83735; 84100; 85025; 85610; 85730; 93005; 96360; 99284